=== PATIENT | male | born 1950 | race African-American/Black ===

== ENCOUNTER 2019-03-21 13:39 | Inpatient (IN) | payer MEDICARE, MEDICAID ==
[~2019-03-21] VITALS: Ht 172.7 cm; Wt 64.0 kg
[2019-03-21 13:45] VITALS: BP 78/52
--- NOTE | 2019-03-21 13:45 | NUR ---
ED Nurse Note: pt brought in to ER by ambulance from SNF due to abnormal lab. per EMS Hgb was 6.7 and WBC 23 drawn yesterday. pt aao x1 but awake and follows commnads. bedbound and moving all extremities in bed. calm and cooperative. pt is in gown and on cabbage salter. blood pressure low as documented and ERMD made aware.
[2019-03-21] MEDS ORDERED: SYMLIN600 MCG/1 SUBQ (13:53)
[2019-03-21] MEDS ORDERED: BISACODYL10 M1 RC (13:53)
[2019-03-21] MEDS ORDERED: MELATONIN3 M1 ORAL (13:53)
[2019-03-21] MEDS ORDERED: AMLODIPINE BESY10 MG ORAL (13:53)
[2019-03-21] MEDS ORDERED: MILK OF MA400 MG/51 ORAL (13:53)
[2019-03-21] MEDS ORDERED: OXYCODONE HCL20 M1 ORAL (13:53)
[2019-03-21] MEDS ORDERED: CRANBERRY450 M4 PO (13:53)
[2019-03-21] MEDS ORDERED: FLOMAX0.4 MG ORAL (13:53)
[2019-03-21] MEDS ORDERED: ZOFRAN ODT8 MG ORAL (13:53)
[2019-03-21] MEDS ORDERED: LISINOPRIL20 MG ORAL (13:53)
[2019-03-21] MEDS ORDERED: COLACE100 MG ORAL (13:53)
[2019-03-21] MEDS ORDERED: FAMOTIDINE20 MG ORAL (13:53)
[2019-03-21] MEDS ORDERED: CYCLOBENZAPRINE10 MG ORAL (13:53)
[2019-03-21] MEDS ORDERED: MULTIVITAMINS1 EAC8 ORAL (13:53)
[2019-03-21] MEDS ORDERED: PRO-STAT LIQUID30 ML ORAL (13:53)
[2019-03-21] MEDS ORDERED: Isovue-300 100ml vial INJ PRN (14:00)
--- NOTE | 2019-03-21 14:03 | Emergency Room Report ---
History of Present Illness General Chief Complaint: Abnormal Labs Source: Patient, Medical Record, EMS Present Illness HPI The patient presents with abnormal labs. Currently his white count is elevated and his hemoglobin hematocrit are low. The patient denies any cough or pain at this time. He denies vomiting or diarrhea or dysuria. (However his abdomen is tender which suggest he may not be a good historian.) WBC 12.2, H/H 6.7/24.3. POLST = selective treatment - daughter OKs transfusion. Daughter states had blood in urine on Wednesday. Discharged 4 weeks ago from [facility]. Review of paperwork: Malignant neoplasm cerebellum Dysphagia Cerebral edema Anemia of neoplastic disease DM type 2 Protein calory malnutrition COPD PNA BPH UTI Allergies: Coded Allergies: PENICILLINS (Verified Allergy, Unknown, 03/21/19) Patient History Limited by: medical condition Past Medical History: see triage record, old chart reviewed Social History: Denies: smoking - Former Social History Narrative SNF - selective treatment Reviewed Nursing Documentation: PMH: Agreed; PSxH: Agreed Nursing Documentation-PMH Past Medical History: No History, Except For Hx Hypertension: Yes Hx COPD: Yes Hx Diabetes: Yes Review of Systems All Other Systems: limited Physical Exam Vital Signs Date Time Temp Pulse Resp B/P (MAP) Pulse Ox O2 Delivery O2 Flow Rate FiO2 03/21/19 13:43 98.1 106 18 128/51 (76) 94 Room Air Sp02 EP Interpretation: reviewed, normal General Appearance: no apparent distress, GCS 15, Chronically Ill Head: normocephalic Eyes: bilateral eye normal inspection ENT: moist mucus membranes - Edentulous upper gums Neck: supple, no meningismus Respiratory: chest non-tender, no respiratory distress, decreased breath sounds - Right Cardiovascular #1: tachycardia, edema - Right arm Cardiovascular #2: 2+ radial (R) Gastrointestinal: no rebound, abnormal bowel sounds, guarding, tenderness, scaphoid Rectal: heme positive stool - brown Genitourinary: no CVA tenderness Musculoskeletal: swelling - Right upper arm, other - Atrophy clubbing Neurologic: alert, jointer submarine cable III-XII nml as tested, DTRs symmetric, sensory intact, no Babinski, motor weakness, oriented - X1 Psychiatric: depressed affect, other - Not understanding treatment plan Skin: other - Warm with cornified inflammation of feet Procedures Critical Care Time Critical Care Time Total Critical Care Time: 90 min bedside evaluation and treatment excludes procedures (EKG). Reason for critical care: Sepsis, critical anemia, repeated exams, blood transfusions, discussion with family regarding level of care and blood transfusions Possible complications: hypotension, hypertension, [place], shock, arrhythmias, metabolic acidosis, end organ damage, respiratory failure. Interventions: Determination level of care, Pepcid, blood transfusions, fluid resuscitation, IV antibiotics Course: Patient presented with abnormal labs. Critical anemia uncovered. Blood ordered. Ultrasound excludes DVT right arm. Lack of IV required PICC line placement. Discussion with daughter regarding level of care and blood transfusions. Determination that PICC line and blood transfusions are emergent and patient not understanding treatment plan. Elevated lactic acid and pyuria suggests urinary source of sepsis. Patient receiving blood without difficulty. Discussions of findings with daughter. Consultations: nursing staff, EMS, family, blood bank, admitting physician, radiology Performed by: Dr. Bernardo Tolerated well condition = critical but selective care Medical Decision Making Diagnostic Impression: Primary Impression: Sepsis Qualified Codes: A41.9 - Sepsis, unspecified organism Additional Impressions: Anemia Qualified Codes: D64.9 - Anemia, unspecified Pleural effusion, right GI bleed Qualified Codes: K92.2 - Gastrointestinal hemorrhage, unspecified ER Course Patient presents with elevated white count low hematocrit with abdominal pain. Differential includes sepsis, UTI, diverticulitis, ischemic colitis, GI bleed amongst others. The patient will be evaluated with EKG, chest x-ray CT the abdomen and pelvis and labs. He will receive 30 mill per kilogram bolus and continued hydration. EKG without injury. CXR large R effusion. Leukocytosis. Critical anemia. Delay of re-evaluation as starting PICC line. Sepsis re-evaluation - improved mentation, BP and pulse better. Blood and antibiotics ordered. Going CT. 16:50 Guaiac + brown stools. Pepcid ordered. Stool color suggest lower GI bleed. See CT results. Simpson replaced. Sepsis reevaluation: Good capillary refill, mentation unchanged, transient hypotension improved, antibiotics begun. This is delayed because of the length of time the PICC line required for insertion. Improved. Blood started. Admit tele Dr. Werner. Discussed findings with daughter. She states she was unaware of prior right lung findings. She wants to be kept up-to-date on findings. Records from [facility] were requested after the patient was admitted to the floor. Laboratory Tests Test 03/21/19 13:57 03/21/19 14:30 03/21/19 14:35 03/21/19 16:40 Prothrombin Time 12.5 SEC (9.30-11.50) H Prothrombin Time INR 1.2 (0.9-1.1) H PTT 35 SEC (23-33) H White Blood Count 13.4 K/UL (4.8-10.8) H Red Blood Count 2.63 M/UL (4.70-6.10) L Hemoglobin 6.7 G/DL (14.2-18.0) *L Hematocrit 23.1 % (42.0-52.0) L Mean Corpuscular Volume 88 FL (80-99) Mean Corpuscular Hemoglobin 25.5 PG (27.0-31.0) L Mean Corpuscular Hemoglobin Concent 29.1 G/DL (32.0-36.0) L Red Cell Distribution Width 18.9 % (11.6-14.8) H Platelet Count 519 K/UL (150-450) H Mean Platelet Volume 4.9 FL (6.5-10.1) L Neutrophils (%) (Auto) % (45.0-75.0) Lymphocytes (%) (Auto) % (20.0-45.0) Monocytes (%) (Auto) % (1.0-10.0) Eosinophils (%) (Auto) % (0.0-3.0) Basophils (%) (Auto) % (0.0-2.0) Differential Total Cells Counted 100 Neutrophils % (Manual) 87 % (45-75) H Lymphocytes % (Manual) 5 % (20-45) L Monocytes % (Manual) 6 % (1-10) Eosinophils % (Manual) 0 % (0-3) Basophils % (Manual) 0 % (0-2) Band Neutrophils 2 % (0-8) Platelet Estimate Increased H Platelet Morphology Normal Polychromasia 1+ Hypochromasia 2+ Anisocytosis 2+ Sodium Level 140 MMOL/L (136-145) Potassium Level 4.0 MMOL/L (3.5-5.1) Chloride Level 106 MMOL/L (98-107) Carbon Dioxide Level 26 MMOL/L (21-32) Anion Gap 8 mmol/L (5-15) Blood Urea Nitrogen 13 mg/dL (7-18) Creatinine 0.8 MG/DL (0.55-1.30) Estimate Glomerular Filtration Rate > 60 mL/min (>60) Glucose Level 207 MG/DL (74-106) H Calcium Level 9.1 MG/DL (8.5-10.1) Magnesium Level 2.2 MG/DL (1.8-2.4) Total Bilirubin 0.3 MG/DL (0.2-1.0) Aspartate Amino Transferase (AST) 15 U/L (15-37) Alanine Aminotransferase (ALT) 14 U/L (12-78) Alkaline Phosphatase 80 U/L (46-116) Total Creatine Kinase 14 U/L (26-308) L Troponin I 0.000 ng/mL (0.000-0.056) Pro-B-Type Natriuretic Peptide 248 pg/mL (0-125) H Total Protein 6.1 G/DL (6.4-8.2) L Albumin 1.9 G/DL (3.4-5.0) L Globulin 4.2 g/dL Albumin/Globulin Ratio 0.5 (1.0-2.7) L Lipase 56 U/L (73-393) L Lactic Acid Level 2.50 mmol/L (0.4-2.0) H Urine Color Yellow Urine Appearance Very cloudy Urine pH 8 (4.5-8.0) Urine Specific [place] 1.015 (1.005-1.035) Urine Protein 2+ (NEGATIVE) H Urine Glucose (UA) Negative (NEGATIVE) Urine Ketones Negative (NEGATIVE) Urine Blood 5+ (NEGATIVE) H Urine Nitrite Negative (NEGATIVE) Urine Bilirubin Negative (NEGATIVE) Urine Urobilinogen Normal MG/DL (0.0-1.0) Urine Leukocyte Esterase 3+ (NEGATIVE) H Urine RBC 5-10 /HPF (0 - 0) H Urine WBC 10-15 /HPF (0 - 0) H Urine Squamous Epithelial Cells None /LPF (NONE/OCC) Urine Bacteria Many /HPF (NONE) H Test 03/21/19 18:50 Lactic Acid Level 2.40 mmol/L (0.66-2.22) H EKG Diagnostic Results Rate: normal Rhythm: NSR ST Segments: no acute changes - low voltage Rhythm Strip Diag. Results EP Interpretation: yes Rhythm: NSR, no PVC's, no ectopy Chest X-Ray Diagnostic Results Chest X-Ray Diagnostic Results : Chest X-Ray Ordered: Yes # of Views/Limited/Complete: 1 View Indication: Other EP Interpretation: Yes Interpretation: no pneumothorax, other - Large right pleural effusion cannot exclude infiltrate Impression: Other Electronically Signed by: Electronically signed by Tex Bernardo MD CT/MRI/US Diagnostic Results CT/MRI/US Diagnostic Results #1: Imaging Test Ordered: abd/pelvis Impression pericardial effusion simpson in urethra CT/MRI/US Diagnostic Results #2: Imaging Test Ordered: RUE doppler Impression no clot Last Vital Signs Date Time Temp Pulse Resp B/P (MAP) Pulse Ox O2 Delivery O2 Flow Rate FiO2 03/22/19 00:00 97.7 95 15 104/72 (83) 97 03/21/19 23:26 Room Air Status: improved Disposition: ADMITTED INPATIENT Condition: Serious Tex Bernardo MD Mar 21, 2019 14:03
--- NOTE | 2019-03-21 14:05 | NUR ---
ED Nurse Note: Rt arm edema noted. ERMD made aware.
--- NOTE | 2019-03-21 14:10 | NUR ---
ED Nurse Note: x-ray at bedside.
[2019-03-21 14:31] LABS: INR 1.2 (0.9-1.1)
[2019-03-21 14:46] LABS: HEMATOCRIT 23.1 % (42.0-52.0); MEAN CORPUSCULAR VOLUME 88 FL (80-99); PLATELET COUNT 519 K/UL (150-450); RED BLOOD COUNT 2.63 M/UL (4.70-6.10); RED CELL DISTRIBUTION WIDTH 18.9 % (11.6-14.8); WHITE BLOOD COUNT 13.4 K/UL (4.8-10.8)
[2019-03-21 14:54] LABS: HEMOGLOBIN 6.7 G/DL (14.2-18.0)
[2019-03-21] MEDS ORDERED: Heparin1,000 units/500ml Premix(Conc:2 units/ml) IV ONE (15:00)
[2019-03-21] MEDS ORDERED: Lidocaine 1% Plain 30 ml INJ ONE (15:00)
--- NOTE | 2019-03-21 15:05 | NUR ---
ED Nurse Note: Received consent from patient regarding picc line placement. Per Dr. Bernardo, Patient's daughter, Bruna has given him consent to transfuse blood.
[2019-03-21 15:06] LABS: ANION GAP 8 mmol/L (5-15); BLOOD UREA NITROGEN 13 mg/dL (7-18); CALCIUM 9.1 MG/DL (8.5-10.1); CARBON DIOXIDE 26 MMOL/L (21-32); CHLORIDE 106 MMOL/L (98-107); CREATININE 0.8 MG/DL (0.55-1.30); SODIUM 140 MMOL/L (136-145)
--- NOTE | 2019-03-21 15:10 | NUR ---
ED Nurse Note: US at bedside.
[2019-03-21 15:17] LABS: ALANINE AMINOTRANSFERASE 14 U/L (12-78); ALBUMIN 1.9 G/DL (3.4-5.0); ALBUMIN/GLOBULIN RATIO 0.5 (1.0-2.7); ALKALINE PHOSPHATASE 80 U/L (46-116); ASPARTATE AMINO TRANSFERASE 15 U/L (15-37); BILIRUBIN,TOTAL 0.3 MG/DL (0.2-1.0); CREATINE KINASE 14 U/L (26-308)
--- NOTE | 2019-03-21 15:21 | Diagnostic Imaging Report ---
Indication: Dyspnea Comparison: None A single view chest radiograph was obtained. Findings: There is near complete opacification of the right hemithorax. The left lung is relatively clear. Heart size is difficult to evaluate. Bones are unremarkable. IMPRESSION: Opacified right hemithorax. This may be due to pleural effusion/atelectasis or other possibilities.
[2019-03-21] MEDS ORDERED: Vancomycin 1.5 GM in NS 275 ML IVPB ONE (15:30)
[2019-03-21] MEDS ORDERED: cefTRIAXone 1 GM in NS 55 ML IVPB ONE (15:30)
[2019-03-21 15:45] VITALS: BP 99/58
--- NOTE | 2019-03-21 15:50 | NUR ---
ED Nurse Note: PICC line inserting at bedside.
--- NOTE | 2019-03-21 16:16 | Diagnostic Imaging Report ---
Indication: Right upper extremity pain and swelling. Technique: Duplex Doppler imaging of the veins in the right upper extremity performed. FINDINGS: The jugular and subclavian veins demonstrate normal color flow and waveform signal. No evidence of thrombosis. Continuation to the axillary vein, brachial, cephalic and basilic veins show no evidence of thrombosis with good compressibility, normal color flow and waveform analysis. IMPRESSION: No evidence of thrombosis involving the right upper extremity in question.
--- NOTE | 2019-03-21 16:35 | NUR ---
ED Nurse Note: PICC line insertion done at bedside.
--- NOTE | 2019-03-21 16:47 | NUR ---
ED Nurse Note: pt went down for CT in stable condition. BP was checked prior to departing at 119/79mmHg
--- NOTE | 2019-03-21 16:48 | NUR ---
RADIOLOGY: MIDLINE PLACED
--- NOTE | 2019-03-21 16:50 | NUR ---
ED Nurse Note: Rectal temp 98.7F. reported to ERMD.
--- NOTE | 2019-03-21 17:05 | NUR ---
ED Nurse Note: pt came back from CT in stable condition.
--- NOTE | 2019-03-21 17:10 | NUR ---
ED Nurse Note: Retal exam done by DEBORAH.
[2019-03-21 17:35] LABS: APPEARANCE,URINE VERY CLOUDY; BILIRUBIN, URINE NEGATIVE (NEGATIVE); GLUCOSE, URINE (UA) NEGATIVE (NEGATIVE); KETONES,URINE NEGATIVE (NEGATIVE); LEUKOCYTE ESTERASE ,URINE 3+ (NEGATIVE); NITRITE,URINE NEGATIVE (NEGATIVE); PH,URINE 8 (4.5-8.0); PROTEIN,URINE 2+ (NEGATIVE); UROBILINOGEN,URINE NORMAL MG/DL (0.0-1.0)
[2019-03-21 17:36] LABS: COLOR,URINE YELLOW
[2019-03-21 17:45] VITALS: BP 117/77
--- NOTE | 2019-03-21 18:00 | NUR ---
ED Nurse Note: stayed at bedside for 15 minutes and no reaction noted. vss 97.8F, 87/min, 99/87mmHg.
--- NOTE | 2019-03-21 18:41 | NUR ---
ED Nurse Note: F/C replaced and lactic reflux sent to the lab.
--- NOTE | 2019-03-21 19:05 | NUR ---
HAND-OFF: Report given to MARIO Pavon. blood transfusion on going without adverse reaction.
[2019-03-21 20:00] VITALS: BP 142/71
[2019-03-21] MEDS ORDERED: Dyna-Hex 2% Top Sol 2oz TOPIC SCH (20:00)
--- NOTE | 2019-03-21 20:00 | NUR ---
TRANSFER TO FLOOR: Patient transferred to as ordered, per Dr dickens. Report given to MARIO Hayward. Belongings and medications given to . Family and or S/O informed of transfer.
--- NOTE | 2019-03-21 20:02 | NUR ---
NURSE NOTES: Received report from MYRA Pavon RN. Patient was transferred to Telemetry unit via gurney, draw sheet method, 2 staff member assist without incident. No signs of acute distress noted; denies pain at this time. AOx1; able to make needs known to a limited degree. Checked right upper arm PICC line; patent and flushed. No erythema, bleeding, or infiltration noted. 1st unit of PRBCs completed. Patient appears to have tolerated well. No adverse reaction noted. Belongings list checked; no belongings. Skin assessment performed; skin is intact. No open wounds noted. Barnes catheter draining well to gravity. Bed at lowest position, brakes on, siderails up x3. Call light within reach. Will continue to monitor.
[2019-03-21] MEDS ORDERED: ACETAMINOPHEN325 M1 ORAL (21:10)
[2019-03-21] MEDS ORDERED: POLYETHYLENE GL17 GM ORAL (21:10)
[2019-03-21] MEDS ORDERED: ACETAMINOPHEN500 M5 ORAL (21:10)
[2019-03-21] MEDS ORDERED: XARELTO20 MG ORAL (21:10)
--- NOTE | 2019-03-21 21:14 | NUR ---
NURSE NOTES: Called Dr. Werner regarding admission orders for patient. Awaiting callback.
--- NOTE | 2019-03-21 21:44 | NUR ---
NURSE NOTES: Per Dr. Werner, called Dr. Moran, covering MD for Dr. Werner, for admission orders. Awaiting callback.
--- NOTE | 2019-03-21 21:57 | NUR ---
NURSE NOTES: Patient strongly refusing pier worker at this time and noted to be slapping primary RN's hand away when attempting to reapply monitor leads. Risks and benefits explained; still adamantly refusing.
--- NOTE | 2019-03-21 22:34 | NUR ---
NURSE NOTES: Called Dr. Moran's exchange regarding admission orders. Awaiting callback.
--- NOTE | 2019-03-21 23:58 | NUR ---
NURSE NOTES: Received admission orders from Dr. Werner including continuing 2nd unit of PRBCs. Noted and carried out.
[2019-03-22] VITALS: BP 104/72
--- NOTE | 2019-03-22 00:17 | NUR ---
NURSE NOTES: Per Dr. Werner, no sliding scale for patient since patient is NPO.
--- NOTE | 2019-03-22 01:25 | NUR ---
NURSE NOTES: Received additional orders from Dr. Moran. Noted and carried out.
--- NOTE | 2019-03-22 02:06 | NUR ---
NURSE NOTES: Initiated second unit of PRBCs. Will continue to monitor patient for any adverse reactions.
--- NOTE | 2019-03-22 02:24 | NUR ---
NURSE NOTES: Patient appears to be tolerating blood transfusion well. No adverse reaction noted at this time. Will continue to monitor.
[2019-03-22 04:00] VITALS: BP 115/83
[2019-03-22 06:33] LABS: ANION GAP 9 mmol/L (5-15); BLOOD UREA NITROGEN 10 mg/dL (7-18); CALCIUM 8.9 MG/DL (8.5-10.1); CARBON DIOXIDE 27 MMOL/L (21-32); CHLORIDE 107 MMOL/L (98-107); CREATININE 0.7 MG/DL (0.55-1.30); POTASSIUM 3.6 MMOL/L (3.5-5.1); SODIUM 143 MMOL/L (136-145)
[2019-03-22 06:46] LABS: HEMATOCRIT 28.9 % (42.0-52.0); MEAN CORPUSCULAR VOLUME 89 FL (80-99); PLATELET COUNT 580 K/UL (150-450); RED BLOOD COUNT 3.26 M/UL (4.70-6.10); RED CELL DISTRIBUTION WIDTH 17.6 % (11.6-14.8); WHITE BLOOD COUNT 13.1 K/UL (4.8-10.8)
[2019-03-22 06:56] LABS: HEMOGLOBIN 8.8 G/DL (14.2-18.0)
--- NOTE | 2019-03-22 07:20 | NUR ---
NURSE NOTES: Report received from MARIO Cherry. Patient asleep, easily awakened by voice. AOx1. In RA. Denies any pain or SOB. Refused VS at this time. Barnes patent. Bed on lowest position, side rails upx2, brakes engaged. Call light within easy reach.
--- NOTE | 2019-03-22 07:44 | NUR ---
HAND-OFF: Report given to MARIO Rae. Patient is asleep lying semi-novoa's; resting comfortably. In stable condition.
[2019-03-22] MEDS ORDERED: Cefepime HCl 1 GM in D5W 55 ML IVPB SCH (09:00)
--- NOTE | 2019-03-22 10:11 | NUR ---
SWALLOW/SPEECH THERAPY NOTE: REFERRED BY DR HARTMANN FOR A SWALLOW EVALUATION, SEE FULL REPORT IN [facility]ARE ACTIVITY SECTION. 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 SWALLOW EVAL AND VIDEOSWALLOW STUDY 01/2019 ADMIT BUT AT SNF SEEING ST FOR SWALLOW TX. RELEVANT MEDS: PPI SEEING GI [facility] FOR POSS GIB ALERT BUT REFUSING PO INITIALLY AND DOESN'T WANT TO FOLLOW SOME COMMANDS (LIKE ORAL COMMANDS) OR GETS AGITATED WITH STAFF AT TIMES. EXPRESSES NEEDS IN HOARSE VOICE. NEEDS ENT REFERRAL HAS SMOKING HX. INITIAL IMPRESSIONS: S/S OF MILD TO MOD ORAL AND OROPHARYNEGAL DYSPHAGIA WITH INCREASED TRANSIT TIMES OVERALL. THIN LIQUIDS - 3 OZ WATER PRITESH SWALLOW TEST, ABLE TO DRINK SEQUENTIALLY SELF-FEEDING BUT NEEDED TO STOP 2 TIMES INITIALLY BUT NO OVERT ASPIRATION. 1-2 EXTRA SWALLOWS SPONTANEOUSLY NOTED. NECTAR THICK LIQUIDS GROSSLY FUNCTIONAL WITH FAIR HYOLARYNGEAL EXCURSION WITH SIP VIA CUP SEQUENTIAL SIPS SELF-FEEDING. DID HAVE 1-2 EXTRA SWALLOWS SPONTANEOUSLY PUREED TSP 5-7 SECONDS ORAL PREP PHASE TENDS TO MAKE CHEWING MOVEMENTS, NOR ORAL RESIDUE, GOOD HYOLARYNGEAL EXCURSION, 2 EXTRA SWALLOWS, NO OVERT ASPIRATION. HAS SILENT ASPIRATION RISK DUE TO NEURO DX RECOMMENDATIONS: COMPLETE MOD BARIUM SWALLOW STUDY TO FURTHER ASSESS SWALLOW, DETERMINE SILENT ASPIRATION RISK/ETIOLOGY, AND ATTEMPT TRIAL TX IF PO GIVEN FOR QUALITY OF LIFE, CONSIDER CCHO-MED PUREED AND NECTAR THICK LIQUIDS WITH ASSIST WITH MEALS AND POSTED ASPIRATION AND REFLUX PRECAUTIONS (HAS GERD). RD REGARDING DIET TYPE NO REPORT NOW BUT WAS ON CCHO-MED AT SNF SKILLED DYSPHAGIA MANAGEMENT AND TX AND COG-COM EVAL/TX EDUCATED/TRAINED MARIO SHARMA IN POSTED ASPIRATION PRECAUTIONS D/W RNZACHARY, LEFT MESSAGE WITH MD HARTMANN, AND DONNELL SAUNDERS (BLUEPRINT TRACER NOT AVAILABLE RN TO TELL)
--- NOTE | 2019-03-22 10:24 | NUR ---
NURSE NOTES: Dr. Beaulieu checked Pt's R upper arm, confirmed swelling.
--- NOTE | 2019-03-22 10:40 | GI Initial Consult Note ---
History of Present Illness General Date patient seen: Mar 22, 2019 Time patient seen: 10:34 Reason for Hospitalization: Abnormal Labs Referring physician: MADELIN HARTMANN Reason for Consultation: ANEMIA Present Illness HPI The patient presents with abnormal labs. Currently his white count is elevated and his hemoglobin hematocrit are low. The patient denies any cough or pain at this time. He denies vomiting or diarrhea or dysuria. (However his abdomen is tender which suggest he may not be a good historian.) WBC 12.2, H/H 6.7/24.3. POLST = selective treatment - daughter OKs transfusion. Daughter states had blood in urine on Wednesday. [facility] GI consulted for anemia. ROS limited, patient unable to provide any history. Patient seen, no apparent distress with no active signs or symptoms of nausea or vomiting. Noted that the POLST agreed for trial of artificial feeding if necessary. Patient has been seen by speech therapy, advance to a pured diet. Labs reviewed; WBC 13, hemoglobin 6.7, INR 1.2, no transaminitis. Unknown history of endoscopic colonoscopy. Home Meds Reported Medications Acetaminophen* (ACETAMINOPHEN 325MG TABLET*) 325 Mg Tablet, 650 MG ORAL Q4H PRN for Mild Pain/Temp > 100.5, TAB 03/21/19 Acetaminophen (Acetaminophen) 500 Mg Tablet, 1000 MG ORAL Q4H PRN for Moderate Pain (Pain Scale 4-6), TAB 03/21/19 Rivaroxaban (XARELTO) 20 Mg Tablet, 20 MG ORAL DAILY for 30 Days, MG 0 Refills 03/21/19 Polyethylene Glycol 3350* (POLYETHYLENE GLYCOL 3350*) 17 Gm Powd.pack, 17 GM ORAL DAILY, PACKET 03/21/19 Amino Acids/Protein Hydrolys (PRO-STAT LIQUID) 30 Ml Liquid.pkt, 30 ML ORAL TWICE A DAY, ML 03/21/19 Oxycodone Hcl (OXYCODONE HCL) 20 Mg Tablet, 5 MG ORAL Q4HR PRN for Moderate Pain (Pain Scale 4-6), #10 TAB 0 Refills 03/21/19 Oxycodone Hcl (OXYCODONE HCL) 20 Mg Tablet, 10 MG ORAL Q4HR PRN for Severe Pain (Pain Scale 7-10), #10 TAB 0 Refills 03/21/19 Ondansetron Odt* (ZOFRAN ODT*) 8 Mg Tab.rapdis, 4 MG ORAL Q4HR PRN for Nausea & Vomiting, #30 TAB 03/21/19 Multivitamin With Minerals (MULTIVITAMINS WITH MINERALS*) 1 Each Tablet, 1 TAB ORAL DAILY, TAB 03/21/19 Magnesium Hydroxide* (MILK OF MAGNESIA*) 400 Mg/5 Ml Oral.susp, 30 ML ORAL QHS PRN for Constipation, ML 03/21/19 Melatonin (MELATONIN) 3 Mg Tablet.er, 3 MG ORAL BEDTIME PRN for Insomnia, TAB 03/21/19 Lisinopril (LISINOPRIL*) 20 Mg Tablet, 30 MG ORAL DAILY, TAB 03/21/19 Insulin Regular, Human (Humulin R) 100 Unit/1 Ml Vial, 600 MCG SUBQ, VIAL 03/21/19 Tamsulosin HCl (Flomax) 0.4 Mg Cap.er.24h, 0.4 MG ORAL DAILY, CAP 03/21/19 Famotidine (FAMOTIDINE) 20 Mg Tablet, 20 MG ORAL DAILY, #30 TAB 0 Refills 03/21/19 Cyclobenzaprine Hcl* (FLEXERIL*) 10 Mg Tablet, 5 MG ORAL THREE TIMES A DAY PRN for Muscle Spasm, TAB 03/21/19 Cranberry Fruit Concentrate (CRANBERRY) 450 Mg Capsule, 450 MG PO DAILY, CAP 03/21/19 Docusate Sodium* (COLACE*) 100 Mg Capsule, 100 MG ORAL TWICE A DAY, CAP 03/21/19 Bisacodyl (BISACODYL) 10 Mg Supp.rect, 10 MG RC DAILY PRN for Constipation, SUPP 03/21/19 Amlodipine Besylate* (AMLODIPINE BESYLATE*) 10 Mg Tablet, 10 MG ORAL DAILY, TAB 03/21/19 Med list reviewed/reconciled: Yes Allergies: Coded Allergies: PENICILLINS (Verified Allergy, Unknown, 03/21/19) Patient History Limited by: medical condition History Provided By: Medical Record PMH Narrative Review of paperwork: Malignant neoplasm cerebellum Dysphagia Cerebral edema Anemia of neoplastic disease DM type 2 Protein calory malnutrition COPD PNA BPH UTI Limited by: medical condition Past Medical History: see triage record, old chart reviewed Social History: Denies: smoking - Former Social History Narrative SNF - selective treatment Reviewed Nursing Documentation: PMH: Agreed; PSxH: Agreed Nursing Documentation-PMH Past Medical History: No History, Except For Hx Hypertension: Yes Hx COPD: Yes Hx Diabetes: Yes Social History: Denies: smoking, alcohol use, drug use, other Review of Systems All Other Systems: limited Physical Exam Vital Signs Date Time Temp Pulse Resp B/P (MAP) Pulse Ox O2 Delivery O2 Flow Rate FiO2 03/21/19 13:43 98.1 106 18 128/51 (76) 94 Room Air Sp02 EP Interpretation: reviewed, normal Labs Laboratory Tests Test 03/21/19 13:57 03/21/19 14:30 03/21/19 14:35 03/21/19 16:40 Prothrombin Time 12.5 SEC (9.30-11.50) H Prothromb Time International Ratio 1.2 (0.9-1.1) H Activated Partial Thromboplast Time 35 SEC (23-33) H White Blood Count 13.4 K/UL (4.8-10.8) H Red Blood Count 2.63 M/UL (4.70-6.10) L Hemoglobin 6.7 G/DL (14.2-18.0) *L Hematocrit 23.1 % (42.0-52.0) L Mean Corpuscular Volume 88 FL (80-99) Mean Corpuscular Hemoglobin 25.5 PG (27.0-31.0) L Mean Corpuscular Hemoglobin Concent 29.1 G/DL (32.0-36.0) L Red Cell Distribution Width 18.9 % (11.6-14.8) H Platelet Count 519 K/UL (150-450) H Mean Platelet Volume 4.9 FL (6.5-10.1) L Neutrophils (%) (Auto) % (45.0-75.0) Lymphocytes (%) (Auto) % (20.0-45.0) Monocytes (%) (Auto) % (1.0-10.0) Eosinophils (%) (Auto) % (0.0-3.0) Basophils (%) (Auto) % (0.0-2.0) Differential Total Cells Counted 100 Neutrophils % (Manual) 87 % (45-75) H Lymphocytes % (Manual) 5 % (20-45) L Monocytes % (Manual) 6 % (1-10) Eosinophils % (Manual) 0 % (0-3) Basophils % (Manual) 0 % (0-2) Band Neutrophils 2 % (0-8) Platelet Estimate Increased H Platelet Morphology Normal Polychromasia 1+ Hypochromasia 2+ Anisocytosis 2+ Sodium Level 140 MMOL/L (136-145) Potassium Level 4.0 MMOL/L (3.5-5.1) Chloride Level 106 MMOL/L (98-107) Carbon Dioxide Level 26 MMOL/L (21-32) Anion Gap 8 mmol/L (5-15) Blood Urea Nitrogen 13 mg/dL (7-18) Creatinine 0.8 MG/DL (0.55-1.30) Estimat Glomerular Filtration Rate > 60 mL/min (>60) Glucose Level 207 MG/DL (74-106) H Calcium Level 9.1 MG/DL (8.5-10.1) Magnesium Level 2.2 MG/DL (1.8-2.4) Total Bilirubin 0.3 MG/DL (0.2-1.0) Aspartate Amino Transf (AST/SGOT) 15 U/L (15-37) Alanine Aminotransferase (ALT/SGPT) 14 U/L (12-78) Alkaline Phosphatase 80 U/L (46-116) Total Creatine Kinase 14 U/L (26-308) L Troponin I 0.000 ng/mL (0.000-0.056) Pro-B-Type Natriuretic Peptide 248 pg/mL (0-125) H Total Protein 6.1 G/DL (6.4-8.2) L Albumin 1.9 G/DL (3.4-5.0) L Globulin 4.2 g/dL Albumin/Globulin Ratio 0.5 (1.0-2.7) L Lipase 56 U/L (73-393) L Lactic Acid Level 2.50 mmol/L (0.4-2.0) H Urine Color Yellow Urine Appearance Very cloudy Urine pH 8 (4.5-8.0) Urine Specific [place] 1.015 (1.005-1.035) Urine Protein 2+ (NEGATIVE) H Urine Glucose (UA) Negative (NEGATIVE) Urine Ketones Negative (NEGATIVE) Urine Blood 5+ (NEGATIVE) H Urine Nitrite Negative (NEGATIVE) Urine Bilirubin Negative (NEGATIVE) Urine Urobilinogen Normal MG/DL (0.0-1.0) Urine Leukocyte Esterase 3+ (NEGATIVE) H Urine RBC 5-10 /HPF (0 - 0) H Urine WBC 10-15 /HPF (0 - 0) H Urine Squamous Epithelial Cells None /LPF (NONE/OCC) Urine Bacteria Many /HPF (NONE) H Test 03/21/19 18:50 03/22/19 05:50 Lactic Acid Level 2.40 mmol/L (0.66-2.22) H White Blood Count 13.1 K/UL (4.8-10.8) H Red Blood Count 3.26 M/UL (4.70-6.10) L Hemoglobin 8.8 G/DL (14.2-18.0) #L Hematocrit 28.9 % (42.0-52.0) L Mean Corpuscular Volume 89 FL (80-99) Mean Corpuscular Hemoglobin 27.0 PG (27.0-31.0) Mean Corpuscular Hemoglobin Concent 30.4 G/DL (32.0-36.0) L Red Cell Distribution Width 17.6 % (11.6-14.8) H Platelet Count 580 K/UL (150-450) H Mean Platelet Volume 4.8 FL (6.5-10.1) L Neutrophils (%) (Auto) % (45.0-75.0) Lymphocytes (%) (Auto) % (20.0-45.0) Monocytes (%) (Auto) % (1.0-10.0) Eosinophils (%) (Auto) % (0.0-3.0) Basophils (%) (Auto) % (0.0-2.0) Neutrophils % (Manual) Pending Lymphocytes % (Manual) Pending Platelet Estimate Pending Platelet Morphology Pending Sodium Level 143 MMOL/L (136-145) Potassium Level 3.6 MMOL/L (3.5-5.1) Chloride Level 107 MMOL/L (98-107) Carbon Dioxide Level 27 MMOL/L (21-32) Anion Gap 9 mmol/L (5-15) Blood Urea Nitrogen 10 mg/dL (7-18) Creatinine 0.7 MG/DL (0.55-1.30) Estimat Glomerular Filtration Rate > 60 mL/min (>60) Glucose Level 87 MG/DL (74-106) # Calcium Level 8.9 MG/DL (8.5-10.1) General Appearance: well appearing, no apparent distress, alert Head: normocephalic EENT: PERRL/EOMI, normal ENT inspection Neck: supple Respiratory: normal breath sounds, no respiratory distress Cardiovascular: normal rate Gastrointestinal: normal inspection, non tender, soft, normal bowel sounds, non -distended Rectal: deferred Genitourinary: deferred Musculoskeletal: normal inspection, back normal Neurologic: alert, responsive Skin: normal inspection, normal color, no rash, warm/dry, palpation normal, well hydrated Lymphatic: normal inspection, no adenopathy Current Medications Current Medications Medications (Trade) Dose Ordered Sig/Stephani Route PRN Reason Start Time Stop Time Status Last Admin Dose Admin Acetaminophen (Tylenol) 500 mg Q4H PRN ORAL Mild Pain/Temp > 100.5 03/22/19 00:00 04/21/19 00:00 Cefepime HCl 1 gm/ Dextrose 55 ml @ 110 mls/hr EVERY 12 HOURS IVPB 03/22/19 09:00 03/29/19 08:59 03/22/19 09:14 Chlorhexidine Gluconate (Yesi-Hex 2%) 1 applic DAILY@2000 TOPIC 03/21/19 20:00 04/20/19 19:59 Iopamidol (Isovue-300 100ml) 100 ml NOW PRN INJ Radiology Procedure 03/21/19 14:00 Sodium Chloride 1,000 ml @ 75 mls/hr [id number] IV 03/22/19 06:00 04/21/19 05:59 03/22/19 06:23 GI: Plan Problems: (1) Hematuria (2) Anemia (3) GI bleed (4) Sepsis Plan Speech therapy evaluation noted, patient placed on pure and nectar thick diet POLST reviewed Possible anemia secondary to hematuria Conservative management anemia work up OB stool to rule out GI bleed, will consider endoscopy if positive monitor H&H, prn transfusions bowel regimen ppi fu labs Discussed with Dr. Baron. Thank you for this patient referral, we will follow. The patient was seen and examined at bedside and all new and available data was reviewed in the patients chart. I agree with the above findings, impression and plan. (Patient seen earlier today. Signature stamp does not reflect patient encounter time.). - MD Deidre Alvarenga,[facility] ON SITE COORDINATOR Mar 22, 2019 10:40
--- NOTE | 2019-03-22 11:13 | Diagnostic Imaging Report ---
Indication: Abdominal pain Technique: Continuous helical transaxial imaging of the abdomen and pelvis was obtained from the lung bases to the pubic symphysis during intravenous contrast administration. Coronal 2-D reformats were also obtained. Study obtained in a Siemens sensation [address] Automatic Exposure Control was utilized. Total Dose length Product (DLP): [address] Dose Index Volume (CTDIvol): 15.03 mGy Comparison: None Findings: The urinary bladder is distended and there is some air in the bladder lumen. Correlate for recent Barnes placement or other iatrogenic cause of this. In the absence of such history one would assume infection. There is a small right inguinal hernia containing fat. Bowel gas pattern appears nonobstructive. Minimal calcification of aorta demonstrated. The kidneys show multiple cysts bilaterally. There is artifact limiting evaluation of the upper abdomen. The gallbladder is grossly unremarkable in appearance. There is a pericardial effusion. There is periportal edema. There is a moderate right pleural effusion and right posterior basal atelectasis. Spleen is normal size. The liver is unremarkable. Pancreas is grossly unremarkable. Diffuse subcutaneous edema noted. IMPRESSION: Distended urinary bladder. Intraluminal air noted. This may be due to recent Barnes placement. Correlate clinically. Pericardial effusion Moderate right pleural effusion and posterior basal atelectasis. Subcutaneous edema/anasarca. Other incidental findings as above [facility] has communicated the preliminary results to the Emergency Department. Their findings are largely concordant with this report. The CT scanner at [facility] is accredited by the [employer] and the scans are performed using dose optimization techniques as appropriate to a performed exam including Automatic Exposure control.
--- NOTE | 2019-03-22 11:24 | Diagnostic Imaging Report ---
APPROVED REPORT CPT Code: 13365 Present Symptoms Comments: Pain BILATERAL: Imaging reveals a patent deep venous system bilaterally. There is no evidence of thrombus within the common femoral, superficial femoral, popliteal or tibial segments. The greater saphenous veins are within normal limits. Doppler indicates normal spontaneous flow within these segments.
[2019-03-22 12:00] VITALS: BP 122/84
--- NOTE | 2019-03-22 12:54 | Diagnostic Imaging Report ---
Indication: event staff venous access Findings: After the indications, procedure, risks, complications, and alternatives of the procedure were explained, written informed consent was obtained. The right upper extremity was prepped with alcohol. All elements of maximal sterile barrier technique were followed including usage of a cap, mask, sterile gown, sterile gloves, hand hygiene and a large sterile sheet. Sonographic evaluation of the upper extremity was performed demonstrating a patent and compressible basilic vein. Access was obtained under real-time ultrasound guidance (with utilization of sterile gel and sterile probe cover) and digital image was saved and archived. An .018 wire was introduced. Needle exchanged for a 5 [place] peel-away sheath. Measurements were obtained. A 5 [place] dual-lumen Power PICC line catheter was cut to 20 cm and introduced over the wire. Peel-away sheath and wire were removed.Catheter was secured to the skin using 2-0 Prolene suture. Both ports aspirate and flush easily. Post procedure chest x-ray demonstrates good position of the PICC line catheter within the right axillary vein. Attempts at passing the catheter further centrally were unsuccessful. Impression: Successful placement of an upper extremity catheter. The tip is in peripheral right axillary vein.
--- NOTE | 2019-03-22 15:07 | NUR ---
NURSE NOTES: Attempt made to change Pt's central line dressing. Patient refused.
--- NOTE | 2019-03-22 15:39 | Cardiology Report ---
APPROVED REPORT EKG Measurement Heart [id number] Normal sinus rhythm Low voltage QRS Septal infarct, age undetermined Abnormal ECG
--- NOTE | 2019-03-22 15:47 | Consultation ---
History of Present Illness General Chief Complaint: Abnormal Labs Referring physician: MADELIN HARTMANN Reason for Consultation: ANEMIA Present Illness Allergies: Coded Allergies: PENICILLINS (Verified Allergy, Unknown, 03/21/19) Medication History Scheduled Amino Acids/Protein Hydrolys (Pro-Stat Liquid), 30 ML ORAL TWICE A DAY, ( Reported) Amlodipine Besylate* (Amlodipine Besylate*), 10 MG ORAL DAILY, (Reported) Cranberry Fruit Concentrate (Cranberry), 450 MG PO DAILY, (Reported) Docusate Sodium* (Colace*), 100 MG ORAL TWICE A DAY, (Reported) Famotidine (Famotidine), 20 MG ORAL DAILY, (Reported) Lisinopril (Lisinopril*), 30 MG ORAL DAILY, (Reported) Multivitamin With Minerals (Multivitamins With Minerals*), 1 TAB ORAL DAILY, ( Reported) Polyethylene Glycol 3350* (Polyethylene Glycol 3350*), 17 GM ORAL DAILY, ( Reported) Rivaroxaban (Xarelto), 20 MG ORAL DAILY, (Reported) Tamsulosin HCl (Flomax), 0.4 MG ORAL DAILY, (Reported) Scheduled PRN Acetaminophen (Acetaminophen), 1,000 MG ORAL Q4H PRN for Moderate Pain (Pain Scale 4-6), (Reported) Acetaminophen* (Acetaminophen 325MG Tablet*), 650 MG ORAL Q4H PRN for Mild Pain/ Temp > 100.5, (Reported) Bisacodyl (Bisacodyl), 10 MG RC DAILY PRN for Constipation, (Reported) Cyclobenzaprine Hcl* (Flexeril*), 5 MG ORAL THREE TIMES A DAY PRN for Muscle Spasm, (Reported) Magnesium Hydroxide* (Milk Of Magnesia*), 30 ML ORAL QHS PRN for Constipation, ( Reported) Melatonin (Melatonin), 3 MG ORAL BEDTIME PRN for Insomnia, (Reported) Ondansetron Odt* (Zofran Odt*), 4 MG ORAL Q4HR PRN for Nausea & Vomiting, ( Reported) Oxycodone Hcl (Oxycodone Hcl), 10 MG ORAL Q4HR PRN for Severe Pain (Pain Scale 7 -10), (Reported) Oxycodone Hcl (Oxycodone Hcl), 5 MG ORAL Q4HR PRN for Moderate Pain (Pain Scale 4-6), (Reported) Miscellaneous Medications Insulin Regular, Human (Humulin R), 600 MCG SUBQ, (Reported) Patient History Healthcare decision maker Resuscitation status Do Not Resuscitate Advanced Directive on File Yes Physical Exam Last 24 Hour Vital Signs Date Time Temp Pulse Resp B/P (MAP) Pulse Ox O2 Delivery O2 Flow Rate FiO2 03/22/19 12:00 97.2 97 18 122/84 (97) 95 03/22/19 09:00 Room Air 03/22/19 04:00 98.4 110 20 115/83 (94) 95 03/22/19 00:00 97.7 95 15 104/72 (83) 97 03/21/19 23:26 Room Air 03/21/19 20:00 97.9 96 16 117/77 94 Room Air 03/21/19 20:00 98.8 103 20 142/71 (94) 95 03/21/19 20:00 110 03/21/19 17:45 97.9 96 16 117/77 94 Room Air 03/21/19 17:45 97.9 96 16 03/21/19 15:45 97.9 88 18 99/58 94 Room Air Intake and Output 03/21/19 03/22/19 19:00 07:00 Intake Total 3730 ml 46 ml Output Total 360 ml 500 ml Balance 3370 ml -454 ml Intake Oral 0 ml IV Total 3730 ml 46 ml Output Urine Total 360 ml 500 ml Laboratory Tests Test 03/21/19 16:40 03/21/19 18:50 03/22/19 05:50 Urine Color Yellow Urine Appearance Very cloudy Urine pH 8 (4.5-8.0) Urine Specific [place] 1.015 (1.005-1.035) Urine Protein 2+ (NEGATIVE) H Urine Glucose (UA) Negative (NEGATIVE) Urine Ketones Negative (NEGATIVE) Urine Blood 5+ (NEGATIVE) H Urine Nitrite Negative (NEGATIVE) Urine Bilirubin Negative (NEGATIVE) Urine Urobilinogen Normal MG/DL (0.0-1.0) Urine Leukocyte Esterase 3+ (NEGATIVE) H Urine RBC 5-10 /HPF (0 - 0) H Urine WBC 10-15 /HPF (0 - 0) H Urine Squamous Epithelial Cells None /LPF (NONE/OCC) Urine Bacteria Many /HPF (NONE) H Lactic Acid Level 2.40 mmol/L (0.66-2.22) H White Blood Count 13.1 K/UL (4.8-10.8) H Red Blood Count 3.26 M/UL (4.70-6.10) L Hemoglobin 8.8 G/DL (14.2-18.0) #L Hematocrit 28.9 % (42.0-52.0) L Mean Corpuscular Volume 89 FL (80-99) Mean Corpuscular Hemoglobin 27.0 PG (27.0-31.0) Mean Corpuscular Hemoglobin Concent 30.4 G/DL (32.0-36.0) L Red Cell Distribution Width 17.6 % (11.6-14.8) H Platelet Count 580 K/UL (150-450) H Mean Platelet Volume 4.8 FL (6.5-10.1) L Neutrophils (%) (Auto) % (45.0-75.0) Lymphocytes (%) (Auto) % (20.0-45.0) Monocytes (%) (Auto) % (1.0-10.0) Eosinophils (%) (Auto) % (0.0-3.0) Basophils (%) (Auto) % (0.0-2.0) Differential Total Cells Counted 100 Neutrophils % (Manual) 91 % (45-75) H Lymphocytes % (Manual) 3 % (20-45) L Monocytes % (Manual) 4 % (1-10) Eosinophils % (Manual) 0 % (0-3) Basophils % (Manual) 0 % (0-2) Band Neutrophils 2 % (0-8) Platelet Estimate Increased H Platelet Morphology Normal Hypochromasia 1+ Anisocytosis 1+ Sodium Level 143 MMOL/L (136-145) Potassium Level 3.6 MMOL/L (3.5-5.1) Chloride Level 107 MMOL/L (98-107) Carbon Dioxide Level 27 MMOL/L (21-32) Anion Gap 9 mmol/L (5-15) Blood Urea Nitrogen 10 mg/dL (7-18) Creatinine 0.7 MG/DL (0.55-1.30) Estimat Glomerular Filtration Rate > 60 mL/min (>60) Glucose Level 87 MG/DL (74-106) # Calcium Level 8.9 MG/DL (8.5-10.1) Microbiology Date/Time Source Procedure Growth Status 03/21/19 16:40 Urine,Clean Catch Urine Culture - Preliminary Gram Negative Bacillus 1 Resulted Height (Feet): 5 Height (Inches): 8.00 Weight (Pounds): 180 Medications Current Medications Medications (Trade) Dose Ordered Sig/Stephani Route PRN Reason Start Time Stop Time Status Last Admin Dose Admin Acetaminophen (Tylenol) 500 mg Q4H PRN ORAL Mild Pain/Temp > 100.5 03/22/19 00:00 04/21/19 00:00 Cefepime HCl 1 gm/ Dextrose 55 ml @ 110 mls/hr EVERY 12 HOURS IVPB 03/22/19 09:00 03/29/19 08:59 03/22/19 09:14 Chlorhexidine Gluconate (Yesi-Hex 2%) 1 applic DAILY@2000 TOPIC 03/21/19 20:00 04/20/19 19:59 Iopamidol (Isovue-300 100ml) 100 ml NOW PRN INJ Radiology Procedure 03/21/19 14:00 03/23/19 13:59 Sodium Chloride 1,000 ml @ 75 mls/hr [id number] IV 03/22/19 06:00 04/21/19 05:59 03/22/19 06:23 Assessment/Plan Assessment/Plan: Hematology Consult DOS: 03/22/19 Referring physician: MADELIN HARTMANN Reason for Consultation: ANEMIA, LEUKOCYTOSIS HPI The patient presents with abnormal labs. Currently his white count is elevated and his hemoglobin hematocrit are low. The patient denies any cough or pain at this time. He denies vomiting or diarrhea or dysuria. (However his abdomen is tender which suggest he may not be a good historian.) WBC 12.2, H/H 6.7/24.3. POLST = selective treatment - daughter OKs transfusion. Daughter states had blood in urine on Wednesday. Discharged 4 weeks ago from [facility]. GI consulted for anemia. ROS limited, patient unable to provide any history. Patient seen, no apparent distress with no active signs or symptoms of nausea or vomiting. Noted that the POLST agreed for trial of artificial feeding if necessary. Patient has been seen by speech therapy, advance to a pured diet. Labs reviewed; WBC 13, hemoglobin 6.7, INR 1.2, no transaminitis. Unknown history of endoscopic colonoscopy. Home Meds Reported Medications Acetaminophen* (ACETAMINOPHEN 325MG TABLET*) 325 Mg Tablet, 650 MG ORAL Q4H PRN for Mild Pain/Temp > 100.5, TAB 03/21/19 Acetaminophen (Acetaminophen) 500 Mg Tablet, 1000 MG ORAL Q4H PRN for Moderate Pain (Pain Scale 4-6), TAB 03/21/19 Rivaroxaban (XARELTO) 20 Mg Tablet, 20 MG ORAL DAILY for 30 Days, MG 0 Refills 03/21/19 Polyethylene Glycol 3350* (POLYETHYLENE GLYCOL 3350*) 17 Gm Powd.pack, 17 GM ORAL DAILY, PACKET 03/21/19 Amino Acids/Protein Hydrolys (PRO-STAT LIQUID) 30 Ml Liquid.pkt, 30 ML ORAL TWICE A DAY, ML 03/21/19 Oxycodone Hcl (OXYCODONE HCL) 20 Mg Tablet, 5 MG ORAL Q4HR PRN for Moderate Pain (Pain Scale 4-6), #10 TAB 0 Refills 03/21/19 Oxycodone Hcl (OXYCODONE HCL) 20 Mg Tablet, 10 MG ORAL Q4HR PRN for Severe Pain (Pain Scale 7-10), #10 TAB 0 Refills 03/21/19 Ondansetron Odt* (ZOFRAN ODT*) 8 Mg Tab.rapdis, 4 MG ORAL Q4HR PRN for Nausea & Vomiting, #30 TAB 03/21/19 Multivitamin With Minerals (MULTIVITAMINS WITH MINERALS*) 1 Each Tablet, 1 TAB ORAL DAILY, TAB 03/21/19 Magnesium Hydroxide* (MILK OF MAGNESIA*) 400 Mg/5 Ml Oral.susp, 30 ML ORAL QHS PRN for Constipation, ML 03/21/19 Melatonin (MELATONIN) 3 Mg Tablet.er, 3 MG ORAL BEDTIME PRN for Insomnia, TAB 03/21/19 Lisinopril (LISINOPRIL*) 20 Mg Tablet, 30 MG ORAL DAILY, TAB 03/21/19 Insulin Regular, Human (Humulin R) 100 Unit/1 Ml Vial, 600 MCG SUBQ, VIAL 03/21/19 Tamsulosin HCl (Flomax) 0.4 Mg Cap.er.24h, 0.4 MG ORAL DAILY, CAP 03/21/19 Famotidine (FAMOTIDINE) 20 Mg Tablet, 20 MG ORAL DAILY, #30 TAB 0 Refills 03/21/19 Cyclobenzaprine Hcl* (FLEXERIL*) 10 Mg Tablet, 5 MG ORAL THREE TIMES A DAY PRN for Muscle Spasm, TAB 03/21/19 Cranberry Fruit Concentrate (CRANBERRY) 450 Mg Capsule, 450 MG PO DAILY, CAP 03/21/19 Docusate Sodium* (COLACE*) 100 Mg Capsule, 100 MG ORAL TWICE A DAY, CAP 03/21/19 Bisacodyl (BISACODYL) 10 Mg Supp.rect, 10 MG RC DAILY PRN for Constipation, SUPP 03/21/19 Amlodipine Besylate* (AMLODIPINE BESYLATE*) 10 Mg Tablet, 10 MG ORAL DAILY, TAB 03/21/19 Med list reviewed/reconciled: Yes Allergies: Coded Allergies: PENICILLINS (Verified Allergy, Unknown, 03/21/19) Patient History Limited by: medical condition History Provided By: Medical Record PMH Narrative Review of paperwork: Malignant neoplasm cerebellum Dysphagia Cerebral edema Anemia of neoplastic disease DM type 2 Protein calory malnutrition COPD PNA BPH UTI Limited by: medical condition Past Medical History: see triage record, old chart reviewed Social History: Denies: smoking - Former Social History Narrative SNF - selective treatment Reviewed Nursing Documentation: PMH: Agreed; PSxH: Agreed Past Medical History: No History, Except For Hx Hypertension: Yes Hx COPD: Yes Hx Diabetes: Yes Social History: Denies: smoking, alcohol use, drug use, other Review Systems: limited PE Vital Signs Date Time Temp Pulse Resp B/P (MAP) Pulse Ox O2 Delivery O2 Flow Rate FiO2 03/21/19 13:43 98.1 106 18 128/51 (76) 94 Room Air Sp02 EP Interpretation: reviewed, normal Labs Laboratory Tests Test 03/21/19 13:57 03/21/19 14:30 03/21/19 14:35 03/21/19 16:40 Prothrombin Time 12.5 SEC (9.30-11.50) H Prothromb Time International Ratio 1.2 (0.9-1.1) H Activated Partial Thromboplast Time 35 SEC (23-33) H White Blood Count 13.4 K/UL (4.8-10.8) H Red Blood Count 2.63 M/UL (4.70-6.10) L Hemoglobin 6.7 G/DL (14.2-18.0) *L Hematocrit 23.1 % (42.0-52.0) L Mean Corpuscular Volume 88 FL (80-99) Mean Corpuscular Hemoglobin 25.5 PG (27.0-31.0) L Mean Corpuscular Hemoglobin Concent 29.1 G/DL (32.0-36.0) L Red Cell Distribution Width 18.9 % (11.6-14.8) H Platelet Count 519 K/UL (150-450) H Mean Platelet Volume 4.9 FL (6.5-10.1) L Neutrophils (%) (Auto) % (45.0-75.0) Lymphocytes (%) (Auto) % (20.0-45.0) Monocytes (%) (Auto) % (1.0-10.0) Eosinophils (%) (Auto) % (0.0-3.0) Basophils (%) (Auto) % (0.0-2.0) Differential Total Cells Counted 100 Neutrophils % (Manual) 87 % (45-75) H Lymphocytes % (Manual) 5 % (20-45) L Monocytes % (Manual) 6 % (1-10) Eosinophils % (Manual) 0 % (0-3) Basophils % (Manual) 0 % (0-2) Band Neutrophils 2 % (0-8) Platelet Estimate Increased H Platelet Morphology Normal Polychromasia 1+ Hypochromasia 2+ Anisocytosis 2+ Sodium Level 140 MMOL/L (136-145) Potassium Level 4.0 MMOL/L (3.5-5.1) Chloride Level 106 MMOL/L (98-107) Carbon Dioxide Level 26 MMOL/L (21-32) Anion Gap 8 mmol/L (5-15) Blood Urea Nitrogen 13 mg/dL (7-18) Creatinine 0.8 MG/DL (0.55-1.30) Estimat Glomerular Filtration Rate > 60 mL/min (>60) Glucose Level 207 MG/DL (74-106) H Calcium Level 9.1 MG/DL (8.5-10.1) Magnesium Level 2.2 MG/DL (1.8-2.4) Total Bilirubin 0.3 MG/DL (0.2-1.0) Aspartate Amino Transf (AST/SGOT) 15 U/L (15-37) Alanine Aminotransferase (ALT/SGPT) 14 U/L (12-78) Alkaline Phosphatase 80 U/L (46-116) Total Creatine Kinase 14 U/L (26-308) L Troponin I 0.000 ng/mL (0.000-0.056) Pro-B-Type Natriuretic Peptide 248 pg/mL (0-125) H Total Protein 6.1 G/DL (6.4-8.2) L Albumin 1.9 G/DL (3.4-5.0) L Globulin 4.2 g/dL Albumin/Globulin Ratio 0.5 (1.0-2.7) L Lipase 56 U/L (73-393) L Lactic Acid Level 2.50 mmol/L (0.4-2.0) H Urine Color Yellow Urine Appearance Very cloudy Urine pH 8 (4.5-8.0) Urine Specific [place] 1.015 (1.005-1.035) Urine Protein 2+ (NEGATIVE) H Urine Glucose (UA) Negative (NEGATIVE) Urine Ketones Negative (NEGATIVE) Urine Blood 5+ (NEGATIVE) H Urine Nitrite Negative (NEGATIVE) Urine Bilirubin Negative (NEGATIVE) Urine Urobilinogen Normal MG/DL (0.0-1.0) Urine Leukocyte Esterase 3+ (NEGATIVE) H Urine RBC 5-10 /HPF (0 - 0) H Urine WBC 10-15 /HPF (0 - 0) H Urine Squamous Epithelial Cells None /LPF (NONE/OCC) Urine Bacteria Many /HPF (NONE) H Test 03/21/19 18:50 03/22/19 05:50 Lactic Acid Level 2.40 mmol/L (0.66-2.22) H White Blood Count 13.1 K/UL (4.8-10.8) H Red Blood Count 3.26 M/UL (4.70-6.10) L Hemoglobin 8.8 G/DL (14.2-18.0) #L Hematocrit 28.9 % (42.0-52.0) L Mean Corpuscular Volume 89 FL (80-99) Mean Corpuscular Hemoglobin 27.0 PG (27.0-31.0) Mean Corpuscular Hemoglobin Concent 30.4 G/DL (32.0-36.0) L Red Cell Distribution Width 17.6 % (11.6-14.8) H Platelet Count 580 K/UL (150-450) H Mean Platelet Volume 4.8 FL (6.5-10.1) L Neutrophils (%) (Auto) % (45.0-75.0) Lymphocytes (%) (Auto) % (20.0-45.0) Monocytes (%) (Auto) % (1.0-10.0) Eosinophils (%) (Auto) % (0.0-3.0) Basophils (%) (Auto) % (0.0-2.0) Neutrophils % (Manual) Pending Lymphocytes % (Manual) Pending Platelet Estimate Pending Platelet Morphology Pending Sodium Level 143 MMOL/L (136-145) Potassium Level 3.6 MMOL/L (3.5-5.1) Chloride Level 107 MMOL/L (98-107) Carbon Dioxide Level 27 MMOL/L (21-32) Anion Gap 9 mmol/L (5-15) Blood Urea Nitrogen 10 mg/dL (7-18) Creatinine 0.7 MG/DL (0.55-1.30) Estimat Glomerular Filtration Rate > 60 mL/min (>60) Glucose Level 87 MG/DL (74-106) # Calcium Level 8.9 MG/DL (8.5-10.1) General Appearance: well appearing, no apparent distress, alert Head: normocephalic EENT: PERRL/EOMI, normal ENT inspection Neck: supple Respiratory: normal breath sounds, no respiratory distress CV: normal rate GI: normal inspection, non tender, soft, normal bowel sounds, non-distended : deferred Musculoskeletal: normal inspection, back normal Neurologic: alert, responsive Lymphatic: normal inspection, no adenopathy Current Medications Medications (Trade) Dose Ordered Sig/Stephani Route PRN Reason Start Time Stop Time Status Last Admin Dose Admin Acetaminophen (Tylenol) 500 mg Q4H PRN ORAL Mild Pain/Temp > 100.5 03/22/19 00:00 04/21/19 00:00 Cefepime HCl 1 gm/ Dextrose 55 ml @ 110 mls/hr EVERY 12 HOURS IVPB 03/22/19 09:00 03/29/19 08:59 03/22/19 09:14 Chlorhexidine Gluconate (Yesi-Hex 2%) 1 applic DAILY@2000 TOPIC 03/21/19 20:00 04/20/19 19:59 Iopamidol (Isovue-300 100ml) 100 ml NOW PRN INJ Radiology Procedure 03/21/19 14:00 Sodium Chloride 1,000 ml @ 75 mls/hr [id number] IV 03/22/19 06:00 04/21/19 05:59 03/22/19 06:23 Problems: # Anemia of chronic disease (or of iron deficiency) due to underlying chronic medical issues, multifactorial --> Anemia workup has been ordered, rule out gi bleed --> No evidence of hemolysis is noted, peripheral smear has been reviewed. --> Hgb goal >7. Transfuse prn. --> Epogen or iron at this time is not particularly indicated --> Medications have been reviewed --> low threshold for gi evaluation in case has occult + # Anemia due to Hematuria --> per gi recs --> conservative management --> may consider gu as per pcp # Leukocytosis/elevated white blood cell count, unspecified likely related to underlying stress reaction, smoking v more likely infection --> have reviewed peripheral smear and bandemia/neutrophilia noted --> on cefepime per id --> monitor for resolution # Hematuria --> currently improved # Sepsis POA --> consider abx needed The timing of this note does not necessarily reflect the time of the patient was seen. GREATLY APPRECIATE CONSULTATION. Kevin Moran MD Mar 22, 2019 15:47
--- NOTE | 2019-03-22 15:50 | NUR ---
CASE MANAGEMENT:REVIEW 68 YR OLD MALE BIBA FROM [facility] CC: ABNORMAL LABS SI: SEPSIS. GIB. ANEMIA 98.0 106 18 128/51 94% ON RA WBC+13.4 H/H-6.7/23.1 IS: 1L NS BOLUS 2L NS BOLUS CT ABD/PELVIS CHEST XRAY BLOOD CX TRANSFUSE 2 UNITS PRBC'S : TO TELEMETRY DCP: WILL RETURN TO [facility] INTERQUAL CRITERIA MET
[2019-03-22 16:00] VITALS: BP 107/70
--- NOTE | 2019-03-22 18:02 | NUR ---
NURSE NOTES: Pt refused PICC line dressing change. "Tomorrow!! not today...."
[2019-03-22] MEDS ORDERED: Acetaminophen 500mg (ES) tab ORAL PRN ×2 (18:27)
--- NOTE | 2019-03-22 18:50 | NUR ---
TRANSFER TO FLOOR: Patient transferred to [facility], per Dr. Werner. Report given to Naa Chaparro RN. Pt. in stable condition.
--- NOTE | 2019-03-22 18:57 | NUR ---
NURSE NOTES: [facility] Patient is alert and oriented x1. Verbally responsive. Not in respiratory/cardiac distress. Breathing is even and unlabored. Skin assessment done, skin intact on pressure site but noted with right arm swollen. Per tele nurse, it was addressed to the doctors. No belongings. re-orientation given about the unit. Bed is in lowest position and locked. Call light within reach. Will continue plan of care.
--- NOTE | 2019-03-22 19:35 | NUR ---
NURSE NOTES: Patient in bed, asleep, arousable to name. No s/s respiratory/cardiac distress. Noted with right arm swelling. PICC line in right upper arm in place. Bed is in lowest position and locked. Call light within reach. Bed alarm on. Will continue to monitor. Addendum: 03/22/19 at 2208 by MARISOL ANTONIO RN RN Simpson in place, draining urine, simpson anchor in place as well.
[2019-03-22 20:24] VITALS: BP 113/73
[2019-03-22] MEDS: Cefepime HCl 1 GM in D5W 55 ML IVPB SCH (20:54)
[2019-03-22] MEDS: Dyna-Hex 2% Top Sol 2oz TOPIC SCH (20:54)
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
--- NOTE | 2019-03-22 23:15 | History and Physical Report ---
DATE OF ADMISSION: 03/21/2019 HISTORY OF PRESENT ILLNESS: The patient is admitted for severe anemia, sepsis, GI bleed, lung cancer, DNR as well as for UTI. The patient has advanced dementia, very poor historian, cannot get a reliable history from the patient due to dementia. Basically admitted because of elevated white count and severe anemia. The patient denies nausea, vomiting, diarrhea. Denies cough. Denies shortness of breath. Denies chills. PAST MEDICAL HISTORY: Malignant brain tumor, anemia, NIDDM, history of COPD, history of BPH, history of UTI, history of hypertension. ALLERGIES: Penicillin. PAST SURGICAL HISTORY: Head surgery. SOCIAL HISTORY: The patient denies smoking, alcohol, or illicit drugs. . REVIEW OF SYSTEMS: Unable to obtain, very poor historian. PHYSICAL EXAMINATION: VITAL SIGNS: Temperature 97.7, pulse 95, blood pressure 104/72. HEENT: PERRLA. NECK: Supple. No lymphadenopathy. CHEST: Clear to auscultation. CARDIOVASCULAR: Regular rate and rhythm. The right leg is edematous. Right arm is edematous. GASTROINTESTINAL: Soft, nontender, nondistended. No organomegaly. EXTREMITIES: No edema. Reflexes equal on both sides. Moves all extremities. NEUROLOGIC: Oriented to name only. Does not follow neurological exam due to his baseline dementia. LABORATORY DATA: WBC of 13.4, hemoglobin 6.7, platelets of 519. Sodium 143, potassium 3.6, BUN of 10, creatinine of 1.7. ASSESSMENT AND PLAN: The patient is admitted for possible GI bleed, sepsis, anemia, UTI, history of lung cancer, DNR. I have basically consulted Dr. Chang, Dr. Kevin Moran, Dr. Baron, and Dr. Beaulieu. Antibiotics per Dr. Beaulieu. Scott Werner M.D. DR: NILSON JOB#: [id number] CC:
[2019-03-23 00:44] VITALS: BP 121/77
--- NOTE | 2019-03-23 03:00 | Consultation ---
DATE OF CONSULTATION: 03/22/2019 INFECTIOUS DISEASE CONSULTATION CONSULTING PHYSICIAN: Juan Pablo Beaulieu M.D. PRIMARY ATTENDING PHYSICIAN: Scott Werner M.D. REASON FOR CONSULTATION: Sepsis. HISTORY OF PRESENT ILLNESS: This is a 68-year-old male admitted yesterday from halfway facility because of abnormal labs. The patient had anemia with hemoglobin of 6.7 and leukocytosis of 13.4. In addition, has lactic acidosis. The patient has a history of lung cancer, pyuria, abnormal chest x-ray. PAST MEDICAL HISTORY: Significant for lung cancer, anemia of neoplastic disease, obstructive hydrocephalus, cerebral edema, diabetes mellitus, right axillary vein thrombosis, dysphagia ALLERGIES: Allergic to penicillin, but tolerated cephalosporin. MEDICATIONS: Cefepime, sodium chloride, Tylenol, got a dose of vancomycin and ceftriaxone in the ER. He received ceftriaxone yesterday and getting cefepime today. SOCIAL HISTORY: [facility] resident, very poor historian. No other history available expect that he denies chest pain, coughing, problem passing urine. PHYSICAL EXAMINATION: VITAL SIGNS: Pulse 110, temperature 98.4, blood pressure 115/83. No fever since admission here. GENERAL APPEARANCE: Seems cachectic. HEAD AND NECK: No oral lesion. HEART: Tachycardic. Has right arm PICC line. LUNGS: Decreased sounds in the right side. Has rhonchi in the left side. ABDOMEN: Soft and nontender. EXTREMITIES: Edema of right arm. Severe muscle atrophy of legs, has finger clubbing. NEUROLOGIC: He is awake and responsive. LABORATORY AND DIAGNOSTIC DATA: WBC today 13.1, hemoglobin 8.3, hematocrit 28.9. Sodium 143, potassium 3.6, chloride 107, bicarbonate 27, BUN 10, creatinine 0.7. Lactic acid 2.4. Albumin is 1.9. UA showed WBC of 10 to 15, rbc's 5 to 10, leukocyte esterase 2+. Urine culture growing gram-negative rods. IMPRESSION: 1. Sepsis with leukocytosis, tachycardia, lactic acidosis. 2. The patient has pyuria and bacteriuria, likely UTI. 3. Right-sided pleural effusion or atelectasis, may have underlying pneumonia, metastatic lung cancer. 4. Diabetes mellitus. 5. Hypertension. 6. Severe anemia. RECOMMENDATION: Continue with cefepime. We will follow up the culture. Prognosis is very poor. The patient is DNR/DNI. At the end of my exam, I thank Dr. Werner for involving me in the care of this patient. Juan Pablo Beaulieu M.D. DR: Mattie JOB#: [id number] CC: RORO
[2019-03-23 04:00] VITALS: BP 141/90
[2019-03-23 05:56] LABS: HEMATOCRIT 29.4 % (42.0-52.0); HEMOGLOBIN 8.9 G/DL (14.2-18.0); MEAN CORPUSCULAR VOLUME 88 FL (80-99); PLATELET COUNT 584 K/UL (150-450); RED BLOOD COUNT 3.32 M/UL (4.70-6.10); RED CELL DISTRIBUTION WIDTH 17.8 % (11.6-14.8); WHITE BLOOD COUNT 13.8 K/UL (4.8-10.8)
[2019-03-23 06:08] LABS: INR 1.1 (0.9-1.1)
--- NOTE | 2019-03-23 06:17 | NUR ---
NURSE NOTES: PATIENT WAS SEEN BY SWITCHBOARD MECHANIC TRYING TO REMOVE PICC LINE. PATIENT WOULD NOT LISTEN TO STOP TRYING TO PICC. SOFT WRIST BILATERAL RESTRAINTS HAD TO BE PUT ON FOR PATIENT SAFETY. CALLED AND LEFT MESSAGE FOR DR. HARTMANN AND DR. Rudy KRAMER. RECEIVED ORDER FOR RESTRAINTS FROM DR. Rudy KRAMER. PATIENT IN NO DISTRESS AT THIS TIME. CHARGE NURSE AWARE. Addendum: 03/23/19 at 0620 by MARISOL ANTONIO RN RN PATIENT WOULD NOT LISTEN TO NURSES'S INSTRUCTIONS TO STOP TRYING TO REMOVE PICC.*
--- NOTE | 2019-03-23 06:21 | NUR ---
NURSE NOTES: UNABLE TO COLLECT OB STOOL DUE TO PATIENT NOT HAVING BOWEL MOVEMENT.
[2019-03-23 06:30] LABS: ALANINE AMINOTRANSFERASE 14 U/L (12-78); ALBUMIN 2.1 G/DL (3.4-5.0); ALBUMIN/GLOBULIN RATIO 0.5 (1.0-2.7); ALKALINE PHOSPHATASE 82 U/L (46-116); ANION GAP 9 mmol/L (5-15); ASPARTATE AMINO TRANSFERASE 11 U/L (15-37); BILIRUBIN,TOTAL 0.6 MG/DL (0.2-1.0); BLOOD UREA NITROGEN 9 mg/dL (7-18); CALCIUM 9.3 MG/DL (8.5-10.1); CARBON DIOXIDE 29 MMOL/L (21-32); CHLORIDE 109 MMOL/L (98-107); CREATININE 0.7 MG/DL (0.55-1.30); FERRITIN 262 NG/ML (8-388); SODIUM 147 MMOL/L (136-145)
[2019-03-23 06:44] LABS: % IRON SATURATION 5 % (15-50); IRON 6 ug/dL (50-175); TOTAL IRON BINDING CAPACITY 132 ug/dL (250-450)
--- NOTE | 2019-03-23 07:17 | NUR ---
HAND-OFF: Report given to Lucas ROBLES RN. ENDORSED TO AM NURSE TO FOLLOW UP WITH DR. HARTMANN REGARDING CLARIFICATION IN REGARDS WITH THE RESTRAINTS VS. 1:1 SITTER.
--- NOTE | 2019-03-23 07:43 | NUR ---
NURSE NOTES: Pt resting in bed. no SOB noted. RUE edema, elevated on pillow. soft mittens on BUE, skin intact, N/V intact. simpson in place. PICC line in place, dressing CDI. fall and asp precautions maintained. will continue to monitor.
[2019-03-23 08:00] VITALS: BP 126/88
--- NOTE | 2019-03-23 09:01 | General Progress Note ---
Assessment/Plan Assessment/Plan: (1) Hematuria (2) Anemia (3) GI bleed (4) Sepsis Plan Speech therapy evaluation noted, patient placed on pure and nectar thick diet POLST reviewed Possible anemia secondary to hematuria Conservative management anemia work up OB stool to rule out GI bleed, will consider endoscopy if positive monitor H&H, prn transfusions bowel regimen ppi fu labs Subjective Allergies: Coded Allergies: PENICILLINS (Verified Allergy, Unknown, 03/21/19) Objective Last 24 Hour Vital Signs Date Time Temp Pulse Resp B/P (MAP) Pulse Ox O2 Delivery O2 Flow Rate FiO2 03/23/19 08:00 98.7 110 20 126/88 (101) 95 03/23/19 04:00 97.6 108 18 141/90 (107) 97 03/23/19 00:58 101 03/23/19 00:44 98.3 116 18 121/77 (92) 98 03/22/19 21:56 Room Air 03/22/19 20:24 97.8 106 18 113/73 (86) 97 03/22/19 16:00 102 03/22/19 16:00 98.1 77 20 107/70 (82) 99 03/22/19 12:00 97.2 97 18 122/84 (97) 95 Intake and Output 03/22/19 03/23/19 18:59 06:59 Intake Total 406 ml 55 ml Output Total 400 ml 600 ml Balance 6 ml -545 ml Intake Oral 360 ml IV Total 46 ml 55 ml Output Urine Total 400 ml 600 ml Laboratory Tests 03/22/19 17:13: Haptoglobin [Pending], Fibrinogen 688H, Carcinoembryonic Antigen 9.1H, Prostate Specific Antigen 3.32, Hepatitis A IgM Antibody Negative, Hepatitis B Surface Antigen Negative, Hepatitis B Core IgM Antibody Negative, Hepatitis C Antibody < 0.1, HIV (1&2) Antibody Rapid Negative 03/23/19 05:00: White Blood Count 13.8H, Red Blood Count 3.32L, Hemoglobin 8.9L, Hematocrit 29.4L, Mean Corpuscular Volume 88, Mean Corpuscular Hemoglobin 26.9L, Mean Corpuscular Hemoglobin Concent 30.4L, Red Cell Distribution Width 17.8H, Platelet Count 584H, Mean Platelet Volume 4.7L, Neutrophils (%) (Auto) , Lymphocytes (%) (Auto) , Monocytes (%) (Auto) , Eosinophils (%) (Auto) , Basophils (%) (Auto) , Neutrophils % (Manual) [Pending], Lymphocytes % (Manual) [Pending], Platelet Estimate [Pending], Platelet Morphology [Pending], Reticulocyte Count [Pending], Prothrombin Time 11.5, Prothromb Time International Ratio 1.1, Activated Partial Thromboplast Time 36H, Sodium Level 147H, Potassium Level 4.0, Chloride Level 109H, Carbon Dioxide Level 29, Anion Gap 9, Blood Urea Nitrogen 9, Creatinine 0.7, Estimat Glomerular Filtration Rate > 60, Glucose Level 98, Calcium Level 9.3, Iron Level 6L, Total Iron Binding Capacity 132L, Percent Iron Saturation 5L, Unsaturated Iron Binding 126 , Ferritin 262, Total Bilirubin 0.6, Aspartate Amino Transf (AST/SGOT) 11L, Alanine Aminotransferase (ALT/SGPT) 14, Alkaline Phosphatase 82, Total Protein 6.5, Albumin 2.1L, Globulin 4.4, Albumin/Globulin Ratio 0.5L, Vitamin B12 Level 1124H, Folate 10.1, Thyroid Stimulating Hormone (TSH) 5.090H, Free Thyroxine 1.17 Height (Feet): 5 Height (Inches): 8.00 Weight (Pounds): 180 General Appearance: alert EENT: normal ENT inspection Neck: supple Cardiovascular: normal rate Respiratory/Chest: decreased breath sounds Abdomen: normal bowel sounds, non tender, soft Extremities: non-tender Bronson Baron MD Mar 23, 2019 09:01
[2019-03-23] MEDS: Cefepime HCl 1 GM in D5W 55 ML IVPB SCH ×2 (09:35→21:17)
--- NOTE | 2019-03-23 11:29 | Infectious Diseases Prog Note ---
Assessment/Plan Assessment/Plan IMPRESSION: 1. Sepsis with leukocytosis, tachycardia, lactic acidosis. 2. Pseudomonas UTI. 3. Right-sided pleural effusion or atelectasis, may have underlying pneumonia, . 4. Diabetes mellitus. 5. Hypertension. 6. Severe anemia. 7. Metastatic lung cancer RECOMMENDATION: Continue with cefepime Subjective ROS Limited/Unobtainable: Yes Neurologic: Reports: confusion, other - on restraint Allergies: Coded Allergies: PENICILLINS (Verified Allergy, Unknown, 03/21/19) Objective Vital Signs Last 24 Hour Vital Signs Date Time Temp Pulse Resp B/P (MAP) Pulse Ox O2 Delivery O2 Flow Rate FiO2 03/23/19 09:00 Room Air 03/23/19 08:00 98.7 110 20 126/88 (101) 95 03/23/19 04:00 97.6 108 18 141/90 (107) 97 03/23/19 00:58 101 03/23/19 00:44 98.3 116 18 121/77 (92) 98 03/22/19 21:56 Room Air 03/22/19 20:24 97.8 106 18 113/73 (86) 97 03/22/19 16:00 102 03/22/19 16:00 98.1 77 20 107/70 (82) 99 03/22/19 12:00 97.2 97 18 122/84 (97) 95 Height (Feet): 5 Height (Inches): 8.00 Weight (Pounds): 180 General Appearance: no acute distress HEENT: mucous membranes moist Respiratory/Chest: decreased breath sounds Cardiovascular: tachycardia, other - R arm PICC line Abdomen: soft, non tender Extremities: no edema Neurologic/Psychiatric: other - sleeping Microbiology Date/Time Source Procedure Growth Status 03/21/19 14:35 Blood Blood Culture - Preliminary NO GROWTH AFTER 24 HOURS Resulted 03/21/19 14:20 Blood Blood Culture - Preliminary NO GROWTH AFTER 24 HOURS Resulted 03/21/19 18:00 Nasal Nares MRSA Culture - Final NO METHICILLIN RESISTANT STAPH AUREUS... Complete 03/21/19 16:40 Urine,Clean Catch Urine Culture - Final Pseudomonas Aeruginosa Complete 03/21/19 18:00 Rectum VRE Culture - Final NO VANCOMYCIN RESISTANT ENTEROCOCCUS ... Complete 03/21/19 18:00 Rectum - Final NO CARBAPENEM-RESISTANT ENTEROBACTERI... Complete Laboratory Tests Test 03/22/19 17:13 7/4/19 05:00 Haptoglobin Pending Fibrinogen 688 mg/dL (200-400) H Carcinoembryonic Antigen 9.1 ng/mL (0.0-4.7) H Prostate Specific Antigen 3.32 ng/mL (0.13-4.0) Hepatitis A IgM Antibody Negative (Negative) Hepatitis B Surface Antigen Negative (Negative) Hepatitis B Core IgM Antibody Negative (Negative) Hepatitis C Antibody <0.1 s/co ratio HIV (1&2) Antibody Rapid Negative (NEGATIVE) White Blood Count 13.8 K/UL (4.8-10.8) H Red Blood Count 3.32 M/UL (4.70-6.10) L Hemoglobin 8.9 G/DL (14.2-18.0) L Hematocrit 29.4 % (42.0-52.0) L Mean Corpuscular Volume 88 FL (80-99) Mean Corpuscular Hemoglobin 26.9 PG (27.0-31.0) L Mean Corpuscular Hemoglobin Concent 30.4 G/DL (32.0-36.0) L Red Cell Distribution Width 17.8 % (11.6-14.8) H Platelet Count 584 K/UL (150-450) H Mean Platelet Volume 4.7 FL (6.5-10.1) L Neutrophils (%) (Auto) % (45.0-75.0) Lymphocytes (%) (Auto) % (20.0-45.0) Monocytes (%) (Auto) % (1.0-10.0) Eosinophils (%) (Auto) % (0.0-3.0) Basophils (%) (Auto) % (0.0-2.0) Differential Total Cells Counted 100 Neutrophils % (Manual) 88 % (45-75) H Lymphocytes % (Manual) 5 % (20-45) L Monocytes % (Manual) 7 % (1-10) Eosinophils % (Manual) 0 % (0-3) Basophils % (Manual) 0 % (0-2) Band Neutrophils 0 % (0-8) Platelet Estimate Increased H Platelet Morphology Normal Hypochromasia 2+ Anisocytosis 1+ Reticulocyte Count 2.0 % (0.5-2.0) Prothrombin Time 11.5 SEC (9.30-11.50) Prothromb Time International Ratio 1.1 (0.9-1.1) Activated Partial Thromboplast Time 36 SEC (23-33) H Sodium Level 147 MMOL/L (136-145) H Potassium Level 4.0 MMOL/L (3.5-5.1) Chloride Level 109 MMOL/L (98-107) H Carbon Dioxide Level 29 MMOL/L (21-32) Anion Gap 9 mmol/L (5-15) Blood Urea Nitrogen 9 mg/dL (7-18) Creatinine 0.7 MG/DL (0.55-1.30) Estimat Glomerular Filtration Rate > 60 mL/min (>60) Glucose Level 98 MG/DL (74-106) Calcium Level 9.3 MG/DL (8.5-10.1) Iron Level 6 ug/dL (50-175) L Total Iron Binding Capacity 132 ug/dL (250-450) L Percent Iron Saturation 5 % (15-50) L Unsaturated Iron Binding 126 ug/dL (112-346) Ferritin 262 NG/ML (8-388) Total Bilirubin 0.6 MG/DL (0.2-1.0) Aspartate Amino Transf (AST/SGOT) 11 U/L (15-37) L Alanine Aminotransferase (ALT/SGPT) 14 U/L (12-78) Alkaline Phosphatase 82 U/L (46-116) Total Protein 6.5 G/DL (6.4-8.2) Albumin 2.1 G/DL (3.4-5.0) L Globulin 4.4 g/dL Albumin/Globulin Ratio 0.5 (1.0-2.7) L Vitamin B12 Level 1124 PG/ML (193-986) H Folate 10.1 NG/ML (8.6-58.9) Thyroid Stimulating Hormone (TSH) 5.090 uiU/mL (0.358-3.740) Free Thyroxine 1.17 NG/DL (0.76-1.46) Current Medications Medications (Trade) Dose Ordered Sig/Stephani Route PRN Reason Start Time Stop Time Status Last Admin Dose Admin Acetaminophen (Tylenol) 500 mg Q4H PRN ORAL Mild Pain/Temp > 100.5 03/22/19 18:27 04/21/19 18:26 Cefepime HCl 1 gm/ Dextrose 55 ml @ 110 mls/hr EVERY 12 HOURS IVPB 03/22/19 21:00 03/29/19 08:59 03/23/19 09:35 Chlorhexidine Gluconate (Yesi-Hex 2%) 1 applic DAILY@1999 TOPIC 03/22/19 20:00 04/20/19 19:59 03/22/19 20:54 Iopamidol (Isovue-300 100ml) 100 ml NOW PRN INJ Radiology Procedure 03/23/19 14:00 04/22/19 13:59 Juan Pablo Beaulieu MD Mar 23, 2019 11:29
[2019-03-23 11:56] VITALS: BP 119/81
--- NOTE | 2019-03-23 12:26 | General Progress Note ---
Assessment/Plan Assessment/Plan: 68 year old male with PMH of malignant brain tumor, anemia, NIDDM, COPD, BPH, history of UTI, hypertension admitted for severe anemia, sepsis, GI bleed, lung cancer, UTI. #Sepsis 2/2 pseudomonas UTI -cont cefepime per ID -ID consult appreciated -CTM #Severe anemia likely 2/2 GI source and DIRIS -Gi Consult appreciated -Venofer started -Hematology consult aprpeciated -Hb acceptable s/p transfusion - #Diabetes mellitus -ISS -carb controlled feeding -can add lantus if needed -FSG QAC and hs #Hypertension -Will hold antihypertensives due to sepsis -BP currently acceptable -can restart home meds -Norvasc 10mg and lisinopril 20mg if needed #BPH -cont flomax #Metastatic lung cancer Code: DNAR Subjective Date patient seen: Mar 23, 2019 Allergies: Coded Allergies: PENICILLINS (Verified Allergy, Unknown, 03/21/19) All Systems: reviewed and negative except above Subjective No acute overnight events, HR improved, HB acceptable. Objective Last 24 Hour Vital Signs Date Time Temp Pulse Resp B/P (MAP) Pulse Ox O2 Delivery O2 Flow Rate FiO2 03/23/19 11:56 98.6 94 20 119/81 (94) 96 03/23/19 09:00 Room Air 03/23/19 08:00 98.7 110 20 126/88 (101) 95 03/23/19 04:00 97.6 108 18 141/90 (107) 97 03/23/19 00:58 101 03/23/19 00:44 98.3 116 18 121/77 (92) 98 03/22/19 21:56 Room Air 03/22/19 20:24 97.8 106 18 113/73 (86) 97 03/22/19 16:00 102 03/22/19 16:00 98.1 77 20 107/70 (82) 99 Intake and Output 03/22/19 03/23/19 19:00 07:00 Intake Total 360 ml 55 ml Output Total 400 ml 600 ml Balance -40 ml -545 ml Intake Oral 360 ml IV Total 55 ml Output Urine Total 400 ml 600 ml Laboratory Tests 03/22/19 17:13: Haptoglobin [Pending], Fibrinogen 688H, Carcinoembryonic Antigen 9.1H, Prostate Specific Antigen 3.32, Hepatitis A IgM Antibody Negative, Hepatitis B Surface Antigen Negative, Hepatitis B Core IgM Antibody Negative, Hepatitis C Antibody < 0.1, HIV (1&2) Antibody Rapid Negative 03/23/19 05:00: White Blood Count 13.8H, Red Blood Count 3.32L, Hemoglobin 8.9L, Hematocrit 29.4L, Mean Corpuscular Volume 88, Mean Corpuscular Hemoglobin 26.9L, Mean Corpuscular Hemoglobin Concent 30.4L, Red Cell Distribution Width 17.8H, Platelet Count 584H, Mean Platelet Volume 4.7L, Neutrophils (%) (Auto) , Lymphocytes (%) (Auto) , Monocytes (%) (Auto) , Eosinophils (%) (Auto) , Basophils (%) (Auto) , Differential Total Cells Counted 100, Neutrophils % ( Manual) 88H, Lymphocytes % (Manual) 5L, Monocytes % (Manual) 7, Eosinophils % ( Manual) 0, Basophils % (Manual) 0, Band Neutrophils 0, Platelet Estimate IncreasedH, Platelet Morphology Normal, Hypochromasia 2+, Anisocytosis 1+, Reticulocyte Count 2.0, Prothrombin Time 11.5, Prothromb Time International Ratio 1.1, Activated Partial Thromboplast Time 36H, Sodium Level 147H, Potassium Level 4.0, Chloride Level 109H, Carbon Dioxide Level 29, Anion Gap 9, Blood Urea Nitrogen 9, Creatinine 0.7, Estimat Glomerular Filtration Rate > 60, Glucose Level 98, Calcium Level 9.3, Iron Level 6L, Total Iron Binding Capacity 132L, Percent Iron Saturation 5L, Unsaturated Iron Binding 126, Ferritin 262, Total Bilirubin 0.6, Aspartate Amino Transf (AST/SGOT) 11L, Alanine Aminotransferase (ALT/SGPT) 14, Alkaline Phosphatase 82, Total Protein 6.5, Albumin 2.1L, Globulin 4.4, Albumin/Globulin Ratio 0.5L, Vitamin B12 Level 1124H , Folate 10.1, Thyroid Stimulating Hormone (TSH) 5.090H, Free Thyroxine 1.17 Height (Feet): 5 Height (Inches): 8.00 Weight (Pounds): 180 Natalie Wilkins MD Mar 23, 2019 12:26
[2019-03-23] MEDS ORDERED: Isovue-300 100ml vial INJ PRN (14:00)
[2019-03-23 16:00] VITALS: BP 124/86
[2019-03-23] MEDS: NovoLOG Insulin Flexpen SUBQ SCH ×2 (16:12→21:00)
--- NOTE | 2019-03-23 19:13 | CDS Physician Query ---
Clarification is required for compliance, coding accuracy, and to reflect severity of illness for this patient Dear Date: A diagnosis of "Pneumonia" is documented, and the patient is on: H&P: " 3. Right-sided pleural effusion or atelectasis, may have underlying pneumonia, metastatic lung cancer." Infectious cons: "3. Right-sided pleural effusion or atelectasis, may have underlying pneumonia," Rx: Vanco+Cefepime+cefriaxon CT Abdomen Pelvis w/Contrast: Moderate right pleural effusion and posterior basal atelectasis. Please specify the underlying etiology: [] Gram +Positive Organism(s) [] Anaerobes [] Gram -Negative Organism(s) [] Aspiration [] Pseudomonas [] Mycoplasma [] MRSA [] Not Applicable [] Other organism(s). Please specify: Present on Admission: [] Yes [] No [] Clinically Undetermined Physician signature Date Please also document in your Progress Notes and/or Discharge Summary and indicate if the condition was present on admission. RORO
--- NOTE | 2019-03-23 19:30 | NUR ---
NURSE NOTES: RECEIVED PATIENT LYING IN BED, AWAKE, ALERT/ORIENTED TO SELF, REALITY ORIENTATION PROVIDED, VERY FORGETFUL, REQUIRE REPETITIVE TEACHINGS, DENIES PAIN. NO SIGNS AND SYMPTOMS OF ACUTE CARDIO RESPIRATORY DISTRESS/SHORTNESS OF BREATH, BILATERAL UPPER EXTREMITIES EDEMATOUS, RIGHT MORE PRONOUNCED THAN THE LEFT. PICC LINE RIGHT UPPER EXTREMITY/DOUBLE LUMEN/PLACED 03/21/19. BILATERAL WRIST RESTRAINTS INTACT TO PREVENT PATIENT FROM REMOVING TUBINGS. CRUZ CATHETER INTACT/PATENT, DRAINING CLOUDY YELLOW URINE VIA GRAVITY, POSITIONED BELOW LEVEL OF WAIST TO PREVENT URINE BACKFLOW. REPOSITIONED FOR COMFORT/PRESSURE RELIEF, TOLERATED WELL. SIDE RAILS UP X3/BED IN LOWEST POSITION FOR SAFETY. CALL LIGHT WITHN REACH. FREQUENT ROUNDING FOR SAFETY/NEEDS. NAD.
[2019-03-23 20:00] VITALS: BP 116/78
[2019-03-23] MEDS: Iron Sucrose 100 MG in NS 55 ML IV SCH (21:17)
[2019-03-23] MEDS: Dyna-Hex 2% Top Sol 2oz TOPIC SCH (21:29)
[2019-03-24] VITALS: BP 132/87
[2019-03-24 04:00] VITALS: BP 119/76
[2019-03-24] MEDS: NovoLOG Insulin Flexpen SUBQ SCH ×4 (06:11→20:20)
--- NOTE | 2019-03-24 06:41 | NUR ---
NURSE NOTES: RESTED WELL, NO SIGNIFICANT CHANGE OF CONDITION NOTED THROUGHOUT THE NIGHT. SAFETY MAINTAINED. NAD.
[2019-03-24 06:58] LABS: HEMATOCRIT 31.7 % (42.0-52.0); HEMOGLOBIN 9.5 G/DL (14.2-18.0); MEAN CORPUSCULAR VOLUME 89 FL (80-99); PLATELET COUNT 578 K/UL (150-450); RED BLOOD COUNT 3.58 M/UL (4.70-6.10); RED CELL DISTRIBUTION WIDTH 18.4 % (11.6-14.8); WHITE BLOOD COUNT 13.8 K/UL (4.8-10.8)
[2019-03-24 07:22] LABS: ANION GAP 8 mmol/L (5-15); BLOOD UREA NITROGEN 9 mg/dL (7-18); CALCIUM 9.5 MG/DL (8.5-10.1); CARBON DIOXIDE 29 MMOL/L (21-32); CHLORIDE 107 MMOL/L (98-107); CREATININE 0.7 MG/DL (0.55-1.30); POTASSIUM 4.1 MMOL/L (3.5-5.1); SODIUM 144 MMOL/L (136-145)
[2019-03-24 08:00] VITALS: BP 136/82
--- NOTE | 2019-03-24 08:37 | NUR ---
NURSE NOTES: HANDOFF RECEIVED FROM MARIO ROBLES.
[2019-03-24] MEDS: Cefepime HCl 1 GM in D5W 55 ML IVPB SCH ×2 (09:58→21:59)
--- NOTE | 2019-03-24 11:48 | Diagnostic Imaging Report ---
Indication: Abdominal pain Technique: Grayscale and duplex Doppler imaging of the abdomen performed. Comparison: None Findings: The liver is unremarkable. Doppler interrogation of the main portal vein shows patency with hepatopedal, monophasic flow. There is no biliary ductal dilatation identified. The CBD measures 3.3 mm The spleen is unremarkable. Gallbladder is unremarkable. No gallstones or wall thickening identified. Sonographic Monsalev's sign was negative per technologist. There demonstrated part of the pancreas, aorta and IVC show no definite abnormalities. There are bilateral renal cysts. There is no hydronephrosis. There is a small right pleural effusion. IMPRESSION: No acute findings identified. Bilateral renal cysts Small right pleural effusion Limited study due to patient positioning difficulties.
--- NOTE | 2019-03-24 11:51 | GI Progress Note ---
Assessment/Plan Problems: (1) Anemia ICD Codes: D64.9 - Anemia, unspecified SNOMED: 588062716 Qualifiers: Qualified Codes: D64.9 - Anemia, unspecified (2) GI bleed ICD Codes: K92.2 - Gastrointestinal hemorrhage, unspecified SNOMED: 73990187 Qualifiers: Qualified Codes: K92.2 - Gastrointestinal hemorrhage, unspecified (3) Hematuria ICD Codes: R31.9 - Hematuria, unspecified SNOMED: [id number] Status: unchanged Status Narrative Discussed with Dr. Baron. Assessment/Plan Speech therapy evaluation noted, patient placed on pure and nectar thick diet POLST reviewed Possible anemia secondary to hematuria Conservative management anemia work up OB stool to rule out GI bleed, will consider endoscopy if positive monitor H&H, prn transfusions bowel regimen ppi fu labs The patient was seen and examined at bedside and all new and available data was reviewed in the patients chart. I agree with the above findings, impression and plan. (Patient seen earlier today. Signature stamp does not reflect patient encounter time.). - Bronson Baron MD Subjective Gastrointestinal/Abdominal: Reports: no symptoms Objective Last 24 Hour Vital Signs Date Time Temp Pulse Resp B/P (MAP) Pulse Ox O2 Delivery O2 Flow Rate FiO2 03/24/19 08:00 98.6 98 19 136/82 (100) 97 03/24/19 04:00 98.7 92 18 119/76 (90) 95 03/24/19 00:00 98.8 100 20 132/87 (102) 95 03/23/19 21:02 Room Air 03/23/19 20:00 98.6 94 20 116/78 (91) 95 03/23/19 16:00 97.7 88 20 124/86 (99) 97 03/23/19 11:56 98.6 94 20 119/81 (94) 96 Intake and Output 03/23/19 03/24/19 18:59 06:59 Intake Total 480 ml 355 ml Output Total 300 ml Balance 480 ml 55 ml Intake Oral 480 ml 240 ml IV Total 115 ml Output Urine Total 300 ml Laboratory Tests Test 03/24/19 06:40 White Blood Count 13.8 K/UL (4.8-10.8) H Red Blood Count 3.58 M/UL (4.70-6.10) L Hemoglobin 9.5 G/DL (14.2-18.0) L Hematocrit 31.7 % (42.0-52.0) L Mean Corpuscular Volume 89 FL (80-99) Mean Corpuscular Hemoglobin 26.6 PG (27.0-31.0) L Mean Corpuscular Hemoglobin Concent 30.0 G/DL (32.0-36.0) L Red Cell Distribution Width 18.4 % (11.6-14.8) H Platelet Count 578 K/UL (150-450) H Mean Platelet Volume 4.9 FL (6.5-10.1) L Neutrophils (%) (Auto) % (45.0-75.0) Lymphocytes (%) (Auto) % (20.0-45.0) Monocytes (%) (Auto) % (1.0-10.0) Eosinophils (%) (Auto) % (0.0-3.0) Basophils (%) (Auto) % (0.0-2.0) Differential Total Cells Counted 100 Neutrophils % (Manual) 81 % (45-75) H Lymphocytes % (Manual) 12 % (20-45) L Monocytes % (Manual) 6 % (1-10) Eosinophils % (Manual) 1 % (0-3) Basophils % (Manual) 0 % (0-2) Band Neutrophils 0 % (0-8) Nucleated Red Blood Cells 1 /100 WBC Platelet Estimate Adequate Platelet Morphology Normal Hypochromasia 2+ Anisocytosis 2+ Sodium Level 144 MMOL/L (136-145) Potassium Level 4.1 MMOL/L (3.5-5.1) Chloride Level 107 MMOL/L (98-107) Carbon Dioxide Level 29 MMOL/L (21-32) Anion Gap 8 mmol/L (5-15) Blood Urea Nitrogen 9 mg/dL (7-18) Creatinine 0.7 MG/DL (0.55-1.30) Estimat Glomerular Filtration Rate > 60 mL/min (>60) Glucose Level 89 MG/DL (74-106) Calcium Level 9.5 MG/DL (8.5-10.1) Height (Feet): 5 Height (Inches): 8.00 Weight (Pounds): 180 General Appearance: no apparent distress Cardiovascular: normal rate Respiratory/Chest: normal breath sounds, no respiratory distress Abdominal Exam: soft Jiang,Alivia-Darrell COOK APPRENTICE Mar 24, 2019 11:51
[2019-03-24 12:00] VITALS: BP 131/79
--- NOTE | 2019-03-24 12:54 | NUR ---
REPAIR ORDER CLERKPOLICE LIAISON OFFICER SI:ANEMIA . GI BLEED VS: BP 116/78, P 100, T 98.6, RR 20, SpO2 95 WBC 13.8, RBC 3.58, H&H 9.5/31.7, Plt count 578, Na 147, IRON 6 IS:CEFEPIME 55ml IVPB IRON SUCROSE 60ml IV NOVOLOG SUBQ PLAN: PUREE & NECTAR THICK DIET PENDING OB STOOL RESULTS PRN TRANSFUSION MED/SURG STATUS
--- NOTE | 2019-03-24 15:29 | NUR ---
SWALLOW/SPEECH THERAPY NOTE: SWALLOW STATUS: PER MANJULA GRACE,PATIENT IS COUGHING AFTER SWALLOWING PUREED TSP. NO COUGH WITH NECTAR THICK LIQUIDS. WILL DOWNGRADE TO LIQUIFIED PUREED LIKE NECTAR THICK SOUP CONSISTENCY AND HAVE ALL BOLUSES AT TSP LEVEL. EDUCATED/TRAINED MARIO OSBORNE AND SANJAY FAIR IN THE UPDATED ASP PRECAUTIONS. PLAN: COMPLETE MOD BARIUM SWALLOW STUDY ON WEDNESDAY OR DO OP IF DC (DO NOT HOLDUP D/C FOR THIS STUDY). Addendum: 03/24/19 at 1530 by AYSHA VALLADARES ENVIRONMENTAL STUDIES FACULTY MEMBER GOALS FOR INTAKE NOT CONSISTENTLY MET (50-75%).
[2019-03-24 16:00] VITALS: BP 132/79
--- NOTE | 2019-03-24 18:04 | General Progress Note ---
Assessment/Plan Status: unchanged Assessment/Plan: 68 year old male with PMH of malignant brain tumor, anemia, NIDDM, COPD, BPH, history of UTI, hypertension admitted for severe anemia, sepsis, GI bleed, lung cancer, UTI. #Sepsis 2/2 pseudomonas UTI -cont cefepime per ID -ID consult appreciated -CTM #Severe anemia likely 2/2 GI source and IDRIS -Gi Consult appreciated -Venofer started -Hematology consult aprpeciated -Hb acceptable s/p transfusion - #Diabetes mellitus -ISS -carb controlled feeding -can add lantus if needed -FSG QAC and hs #Hypertension -Will hold antihypertensives due to sepsis -BP currently acceptable -can restart home meds -Norvasc 10mg and lisinopril 20mg if needed #BPH -cont flomax #Metastatic lung cancer Code: DNAR Subjective Date patient seen: Mar 24, 2019 Allergies: Coded Allergies: PENICILLINS (Verified Allergy, Unknown, 03/21/19) Subjective No acute overnight events, HR improved, HB stable Hypernatremia improved, Objective Last 24 Hour Vital Signs Date Time Temp Pulse Resp B/P (MAP) Pulse Ox O2 Delivery O2 Flow Rate FiO2 03/24/19 16:00 98.3 99 20 132/79 (96) 98 03/24/19 12:00 98.0 100 20 131/79 (96) 98 03/24/19 09:00 Room Air 03/24/19 08:00 98.6 98 19 136/82 (100) 97 03/24/19 04:00 98.7 92 18 119/76 (90) 95 03/24/19 00:00 98.8 100 20 132/87 (102) 95 03/23/19 21:02 Room Air 03/23/19 20:00 98.6 94 20 116/78 (91) 95 Intake and Output 03/23/19 03/24/19 19:00 07:00 Intake Total 480 ml 355 ml Output Total 300 ml Balance 480 ml 55 ml Intake Oral 480 ml 240 ml IV Total 115 ml Output Urine Total 300 ml Laboratory Tests 03/24/19 06:40: White Blood Count 13.8H, Red Blood Count 3.58L, Hemoglobin 9.5L, Hematocrit 31.7L, Mean Corpuscular Volume 89, Mean Corpuscular Hemoglobin 26.6L, Mean Corpuscular Hemoglobin Concent 30.0L, Red Cell Distribution Width 18.4H, Platelet Count 578H, Mean Platelet Volume 4.9L, Neutrophils (%) (Auto) , Lymphocytes (%) (Auto) , Monocytes (%) (Auto) , Eosinophils (%) (Auto) , Basophils (%) (Auto) , Differential Total Cells Counted 100, Neutrophils % ( Manual) 81H, Lymphocytes % (Manual) 12L, Monocytes % (Manual) 6, Eosinophils % ( Manual) 1, Basophils % (Manual) 0, Band Neutrophils 0, Nucleated Red Blood Cells 1, Platelet Estimate Adequate, Platelet Morphology Normal, Hypochromasia 2 +, Anisocytosis 2+, Sodium Level 144, Potassium Level 4.1, Chloride Level 107, Carbon Dioxide Level 29, Anion Gap 8, Blood Urea Nitrogen 9, Creatinine 0.7, Estimat Glomerular Filtration Rate > 60, Glucose Level 89, Calcium Level 9.5 Height (Feet): 5 Height (Inches): 8.00 Weight (Pounds): 180 Natalie Wilkins MD Mar 24, 2019 18:04
--- NOTE | 2019-03-24 19:30 | NUR ---
NURSE NOTES: Received a report from Ana Stanley, RN and Dario RN. Pt is in stable condition. AOX2. On room air. No pain/discomfort noted. Has B soft wrist on. Barnes catheter is draining. R upper arm has a PICC line 2 lumen, patent and intact. Bed in lowest position. Bed alarm is on. Call light within reach. Will continue to monitor.
--- NOTE | 2019-03-24 19:44 | NUR ---
HAND-OFF: Report given to MARIO Perez.
--- NOTE | 2019-03-24 19:57 | NUR ---
NURSE NOTES: Received report from MARIO Perez and MARIO Bishop. Patient is in bed, awake and alert x2. Room air with no signs of respiratory distress. Bilateral wrist restraints in progress to prevent patient from removing PICC line or simpson. Simpson intact. Right upper arm PICC line intact. Bed in lowest position with alarm on. Will continue to monitor.
[2019-03-24 20:00] VITALS: BP 128/82
[2019-03-24] MEDS: Dyna-Hex 2% Top Sol 2oz TOPIC SCH (20:00)
[2019-03-24] MEDS: Iron Sucrose 100 MG in NS 55 ML IV SCH (21:05)
--- NOTE | 2019-03-24 21:05 | NUR ---
NURSE NOTES: Called pharmacy around 9:03 to check compatibility of Iron (Venofer) IV and Cefepime IV because they were ordered to be given at the same time. Patient has a double lumen PICC line. Pharmacy said it is ok as ling as they are run through separate lines.
[2019-03-25] VITALS: BP 131/79
[2019-03-25 04:00] VITALS: BP 123/54
--- NOTE | 2019-03-25 05:30 | NUR ---
NURSE NOTES: Informed the lab that PICC line does not work for blood draw. Kori from the lab will draw the blood later. Charge Nurse Deneen made aware.
[2019-03-25] MEDS: NovoLOG Insulin Flexpen SUBQ SCH ×4 (05:34→20:43)
--- NOTE | 2019-03-25 06:25 | General Progress Note ---
Assessment/Plan Status: unchanged Assessment/Plan: (1) Hematuria (2) Anemia (3) GI bleed (4) Sepsis Plan Speech therapy evaluation noted, patient placed on pure and nectar thick diet POLST reviewed Possible anemia secondary to hematuria Conservative management anemia work up OB stool to rule out GI bleed, will consider endoscopy if positive monitor H&H, prn transfusions bowel regimen ppi fu labs add colace and miralax Subjective ROS Limited/Unobtainable: No Allergies: Coded Allergies: PENICILLINS (Verified Allergy, Unknown, 03/21/19) Objective Last 24 Hour Vital Signs Date Time Temp Pulse Resp B/P (MAP) Pulse Ox O2 Delivery O2 Flow Rate FiO2 03/25/19 04:00 97.9 73 18 123/54 (77) 95 03/25/19 00:00 97.9 97 20 131/79 (96) 99 03/24/19 21:00 Room Air 03/24/19 20:00 98.0 108 20 128/82 (97) 98 03/24/19 16:00 98.3 99 20 132/79 (96) 98 03/24/19 12:00 98.0 100 20 131/79 (96) 98 03/24/19 09:00 Room Air 03/24/19 08:00 98.6 98 19 136/82 (100) 97 Intake and Output 03/24/19 03/25/19 19:00 07:00 Intake Total 420 ml 115 ml Output Total 600 ml Balance -180 ml 115 ml Intake Oral 420 ml IV Total 115 ml Output Urine Total 600 ml Laboratory Tests 03/24/19 06:40: White Blood Count 13.8H, Red Blood Count 3.58L, Hemoglobin 9.5L, Hematocrit 31.7L, Mean Corpuscular Volume 89, Mean Corpuscular Hemoglobin 26.6L, Mean Corpuscular Hemoglobin Concent 30.0L, Red Cell Distribution Width 18.4H, Platelet Count 578H, Mean Platelet Volume 4.9L, Neutrophils (%) (Auto) , Lymphocytes (%) (Auto) , Monocytes (%) (Auto) , Eosinophils (%) (Auto) , Basophils (%) (Auto) , Differential Total Cells Counted 100, Neutrophils % ( Manual) 81H, Lymphocytes % (Manual) 12L, Monocytes % (Manual) 6, Eosinophils % ( Manual) 1, Basophils % (Manual) 0, Band Neutrophils 0, Nucleated Red Blood Cells 1, Platelet Estimate Adequate, Platelet Morphology Normal, Hypochromasia 2 +, Anisocytosis 2+, Sodium Level 144, Potassium Level 4.1, Chloride Level 107, Carbon Dioxide Level 29, Anion Gap 8, Blood Urea Nitrogen 9, Creatinine 0.7, Estimat Glomerular Filtration Rate > 60, Glucose Level 89, Calcium Level 9.5 Height (Feet): 5 Height (Inches): 8.00 Weight (Pounds): 180 General Appearance: no apparent distress EENT: normal ENT inspection Neck: supple Cardiovascular: normal rate Respiratory/Chest: decreased breath sounds Abdomen: normal bowel sounds, non tender, soft Extremities: non-tender Bronson Baron MD Mar 25, 2019 06:25
[2019-03-25 07:33] LABS: HEMATOCRIT 32.5 % (42.0-52.0); HEMOGLOBIN 9.7 G/DL (14.2-18.0); MEAN CORPUSCULAR VOLUME 89 FL (80-99); PLATELET COUNT 614 K/UL (150-450); RED BLOOD COUNT 3.64 M/UL (4.70-6.10); RED CELL DISTRIBUTION WIDTH 18.1 % (11.6-14.8); WHITE BLOOD COUNT 13.2 K/UL (4.8-10.8)
--- NOTE | 2019-03-25 07:34 | NUR ---
HAND-OFF: Report given to MARIO Sheth.
[2019-03-25 07:54] VITALS: BP 146/60
--- NOTE | 2019-03-25 08:15 | NUR ---
NURSE NOTES: Pt awake alert, no distress. no sob. bed in lowest position, locked. call light within reach. will monitor. picc is patent on one of the lumen but red lumen not patent, picc area is swollen (right upper arm is swollen ), paged dr Henriquez via [employer] md exchange, awaiting call back
[2019-03-25 08:32] LABS: ANION GAP 10 mmol/L (5-15); BLOOD UREA NITROGEN 8 mg/dL (7-18); CALCIUM 9.6 MG/DL (8.5-10.1); CARBON DIOXIDE 29 MMOL/L (21-32); CHLORIDE 106 MMOL/L (98-107); CREATININE 0.6 MG/DL (0.55-1.30); POTASSIUM 3.8 MMOL/L (3.5-5.1); SODIUM 145 MMOL/L (136-145)
--- NOTE | 2019-03-25 08:50 | NUR ---
NURSE NOTES: picc removed from right arm, pt tolerated well, no bleeding, elevated arm slightly, 20cm intact picc removed. received order also from dr Gifford to reinsert picc on wednesday03/27/2019
[2019-03-25] MEDS: Docusate 100mg/10ml Liq ORAL SCH ×2 (09:00→17:40)
[2019-03-25] MEDS ORDERED: Lidocaine 1% Plain 30 ml INJ SCH (09:00)
[2019-03-25] MEDS ORDERED: Docusate 100mg cap ORAL SCH (09:00)
[2019-03-25] MEDS: Lidocaine 1% Plain 30 ml INJ SCH (09:15)
[2019-03-25] MEDS: Heparin1,000 units/500ml Premix(Conc:2 units/ml) IV SCH (09:30)
[2019-03-25] MEDS: Cefepime HCl 1 GM in D5W 55 ML IVPB SCH ×2 (09:50→21:26)
--- NOTE | 2019-03-25 10:22 | NUR ---
RD ASSESSMENT & RECOMMENDATIONS SEE CARE ACTIVITY FOR COMPLETE ASSESSMENT DAILY ESTIMATED NEEDS: Needs based on Cancer, 67.8kg 25-30 kcals/kg total kcals 1-1.5 g protein/kg 68-102 g total protein 25-30 mL/kg total fluid mLs NUTRITION DIAGNOSIS: Swallowing difficulty R/T dysphagia, h/o malignant brain tumor, s/p cerebellum craniotomy as evidenced by pt on liquify pureed, NTL per ASSISTANT PROFESSOR OF ECONOMICS rec. CURRENT DIET:CCHO MED/ liquify pureed, NTL PO DIET RECOMMENDATIONS: CCHO MED, texture per ASSISTANT PROFESSOR OF ECONOMICS ADDITIONAL RECOMMENDATIONS: * Calibrated bedscale wt for accurate CBW * Glucerna 1 tetra dipesh TID w/ liquify pureed texture * MVI x 1 as supplement * Encourage pt to consume HS snack to prevent hypoglycemia in the AM
--- NOTE | 2019-03-25 11:10 | Hematology/Onc Progress Note ---
Assessment/Plan Assessment/Plan LATE ENTRY 03/24/2019 #. History of Lung Ca --> CEA level 9.1 --> CT Abd results reviewed # Anemia of chronic disease due to underlying chronic medical issues, multifactorial, malignancy --> Anemia workup has been reviewed, Ferritin 262, Iron 6, TIBC 132, Iron sat 5% . --> No evidence of hemolysis is noted, peripheral smear has been reviewed. --> Hgb goal >7. Transfuse prn. HGB 9.5 --> Epogen or iron at this time is not particularly indicated --> Medications have been reviewed --> low threshold for gi evaluation in case has occult + --> CEA level 9.1 # Anemia due to Hematuria --> per gi recs --> conservative management --> may consider gu as per pcp # Leukocytosis/elevated white blood cell count, unspecified likely related to underlying stress reaction, smoking v more likely infection --> have reviewed peripheral smear and bandemia/neutrophilia noted --> on cefepime per id --> monitor for resolution --> WBC 13.8 # Hematuria --> currently improved # Sepsis POA --> consider abx needed The timing of this note does not necessarily reflect the time of the patient was seen. GREATLY APPRECIATE CONSULTATION. Subjective Allergies: Coded Allergies: PENICILLINS (Verified Allergy, Unknown, 03/21/19) Subjective 03/24: pt confused, has restraints on. Objective Objective Current Medications Medications (Trade) Dose Ordered Sig/Stephani Route PRN Reason Start Time Stop Time Status Last Admin Dose Admin Acetaminophen (Tylenol) 500 mg Q4H PRN ORAL Mild Pain/Temp > 100.5 03/22/19 18:27 04/21/19 18:26 Cefepime HCl 1 gm/ Dextrose 55 ml @ 110 mls/hr EVERY 12 HOURS IVPB 03/22/19 21:00 03/29/19 08:59 03/25/19 09:50 Chlorhexidine Gluconate (Yesi-Hex 2%) 1 applic DAILY@1999 TOPIC 03/22/19 20:00 04/20/19 19:59 03/23/19 21:29 Chlorhexidine Gluconate (Yesi-Hex 2%) 1 applic DAILY@1999 TOPIC 03/27/19 20:00 04/26/19 19:59 Dextrose (Dextrose 50%) 25 ml Q30M PRN IV Hypoglycemia 7/4/19 13:00 04/22/19 12:59 Dextrose (Dextrose 50%) 50 ml Q30M PRN IV Hypoglycemia 03/23/19 13:04 04/22/19 13:03 Docusate Sodium (Colace) 100 mg TWICE A DAY ORAL 03/25/19 09:00 04/24/19 08:59 03/25/19 09:00 Heparin Sodium/ Sodium Chloride (Heparin 1000 units/500ml Premix) 1,000 unit ONCE IV 03/25/19 09:30 03/27/19 23:59 Insulin Aspart (NovoLOG) BEFORE MEALS AND HS SUBQ 03/23/19 16:30 04/22/19 16:29 Iopamidol (Isovue-300 100ml) 100 ml NOW PRN INJ Radiology Procedure 03/23/19 14:00 04/22/19 13:59 Iron Sucrose 100 mg/Sodium Chloride 60 ml @ 240 mls/hr BEDTIME IV 03/23/19 21:00 03/27/19 21:14 03/24/19 21:05 Lidocaine HCl (Xylocaine 1% 30ml) 30 ml ONCE INJ 03/25/19 09:15 03/27/19 20:00 Polyethylene Glycol (Miralax) 17 gm BEDTIME ORAL 03/25/19 21:00 04/24/19 20:59 Last 24 Hour Vital Signs Date Time Temp Pulse Resp B/P (MAP) Pulse Ox O2 Delivery O2 Flow Rate FiO2 03/25/19 07:54 97.9 78 18 146/60 (88) 95 03/25/19 04:00 97.9 73 18 123/54 (77) 95 03/25/19 00:00 97.9 97 20 131/79 (96) 99 03/24/19 21:00 Room Air 03/24/19 20:00 98.0 108 20 128/82 (97) 98 03/24/19 16:00 98.3 99 20 132/79 (96) 98 03/24/19 12:00 98.0 100 20 131/79 (96) 98 03/24/19 09:00 Room Air 03/24/19 08:00 98.6 98 19 136/82 (100) 97 03/24/19 04:00 98.7 92 18 119/76 (90) 95 03/24/19 00:00 98.8 100 20 132/87 (102) 95 03/23/19 21:02 Room Air 03/23/19 20:00 98.6 94 20 116/78 (91) 95 03/23/19 16:00 97.7 88 20 124/86 (99) 97 03/23/19 11:56 98.6 94 20 119/81 (94) 96 Intake and Output 03/24/19 03/25/19 18:59 06:59 Intake Total 420 ml 235 ml Output Total 600 ml Balance -180 ml 235 ml Intake Oral 420 ml 120 ml IV Total 115 ml Output Urine Total 600 ml Labs Test 03/22/19 17:13 03/23/19 05:00 03/24/19 06:40 03/25/19 05:41 Haptoglobin 439 mg/dL (34-200) Fibrinogen 688 mg/dL (200-400) Carcinoembryonic Antigen 9.1 ng/mL (0.0-4.7) Prostate Specific Antigen 3.32 ng/mL (0.13-4.0) Hepatitis A IgM Antibody Negative (Negative) Hepatitis B Surface Antigen Negative (Negative) Hepatitis B Core IgM Antibody Negative (Negative) Hepatitis C Antibody <0.1 s/co ratio HIV (1&2) Antibody Rapid Negative (NEGATIVE) White Blood Count 13.8 K/UL (4.8-10.8) 13.8 K/UL (4.8-10.8) 13.2 K/UL (4.8-10.8) Red Blood Count 3.32 M/UL (4.70-6.10) 3.58 M/UL (4.70-6.10) 3.64 M/UL (4.70-6.10) Hemoglobin 8.9 G/DL (14.2-18.0) 9.5 G/DL (14.2-18.0) 9.7 G/DL (14.2-18.0) Hematocrit 29.4 % (42.0-52.0) 31.7 % (42.0-52.0) 32.5 % (42.0-52.0) Mean Corpuscular Volume 88 FL (80-99) 89 FL (80-99) 89 FL (80-99) Mean Corpuscular Hemoglobin 26.9 PG (27.0-31.0) 26.6 PG (27.0-31.0) 26.6 PG (27.0-31.0) Mean Corpuscular Hemoglobin Concent 30.4 G/DL (32.0-36.0) 30.0 G/DL (32.0-36.0) 29.8 G/DL (32.0-36.0) Red Cell Distribution Width 17.8 % (11.6-14.8) 18.4 % (11.6-14.8) 18.1 % (11.6-14.8) Platelet Count 584 K/UL (150-450) 578 K/UL (150-450) 614 K/UL (150-450) Mean Platelet Volume 4.7 FL (6.5-10.1) 4.9 FL (6.5-10.1) 4.8 FL (6.5-10.1) Neutrophils (%) (Auto) % (45.0-75.0) % (45.0-75.0) % (45.0-75.0) Lymphocytes (%) (Auto) % (20.0-45.0) % (20.0-45.0) % (20.0-45.0) Monocytes (%) (Auto) % (1.0-10.0) % (1.0-10.0) % (1.0-10.0) Eosinophils (%) (Auto) % (0.0-3.0) % (0.0-3.0) % (0.0-3.0) Basophils (%) (Auto) % (0.0-2.0) % (0.0-2.0) % (0.0-2.0) Differential Total Cells Counted 100 100 100 Neutrophils % (Manual) 88 % (45-75) 81 % (45-75) 90 % (45-75) Lymphocytes % (Manual) 5 % (20-45) 12 % (20-45) 5 % (20-45) Monocytes % (Manual) 7 % (1-10) 6 % (1-10) 5 % (1-10) Eosinophils % (Manual) 0 % (0-3) 1 % (0-3) 0 % (0-3) Basophils % (Manual) 0 % (0-2) 0 % (0-2) 0 % (0-2) Band Neutrophils 0 % (0-8) 0 % (0-8) 0 % (0-8) Platelet Estimate Increased Adequate Increased Platelet Morphology Normal Normal Normal Hypochromasia 2+ 2+ 1+ Anisocytosis 1+ 2+ 1+ Reticulocyte Count 2.0 % (0.5-2.0) Prothrombin Time 11.5 SEC (9.30-11.50) Prothromb Time International Ratio 1.1 (0.9-1.1) Activated Partial Thromboplast Time 36 SEC (23-33) Sodium Level 147 MMOL/L (136-145) 144 MMOL/L (136-145) 145 MMOL/L (136-145) Potassium Level 4.0 MMOL/L (3.5-5.1) 4.1 MMOL/L (3.5-5.1) 3.8 MMOL/L (3.5-5.1) Chloride Level 109 MMOL/L (98-107) 107 MMOL/L (98-107) 106 MMOL/L (98-107) Carbon Dioxide Level 29 MMOL/L (21-32) 29 MMOL/L (21-32) 29 MMOL/L (21-32) Anion Gap 9 mmol/L (5-15) 8 mmol/L (5-15) 10 mmol/L (5-15) Blood Urea Nitrogen 9 mg/dL (7-18) 9 mg/dL (7-18) 8 mg/dL (7-18) Creatinine 0.7 MG/DL (0.55-1.30) 0.7 MG/DL (0.55-1.30) 0.6 MG/DL (0.55-1.30) Estimat Glomerular Filtration Rate > 60 mL/min (>60) > 60 mL/min (>60) > 60 mL/min (>60) Glucose Level 98 MG/DL (74-106) 89 MG/DL (74-106) 62 MG/DL (74-106) Calcium Level 9.3 MG/DL (8.5-10.1) 9.5 MG/DL (8.5-10.1) 9.6 MG/DL (8.5-10.1) Iron Level 6 ug/dL (50-175) Total Iron Binding Capacity 132 ug/dL (250-450) Percent Iron Saturation 5 % (15-50) Unsaturated Iron Binding 126 ug/dL (112-346) Ferritin 262 NG/ML (8-388) Total Bilirubin 0.6 MG/DL (0.2-1.0) Aspartate Amino Transf (AST/SGOT) 11 U/L (15-37) Alanine Aminotransferase (ALT/SGPT) 14 U/L (12-78) Alkaline Phosphatase 82 U/L (46-116) Total Protein 6.5 G/DL (6.4-8.2) Albumin 2.1 G/DL (3.4-5.0) Globulin 4.4 g/dL Albumin/Globulin Ratio 0.5 (1.0-2.7) Vitamin B12 Level 1124 PG/ML (193-986) Folate 10.1 NG/ML (8.6-58.9) Thyroid Stimulating Hormone (TSH) 5.090 uiU/mL (0.358-3.740) Free Thyroxine 1.17 NG/DL (0.76-1.46) Nucleated Red Blood Cells 1 /100 WBC Height (Feet): 5 Height (Inches): 8.00 Weight (Pounds): 180 Objective General Appearance: well appearing, no apparent distress, confused Head: normocephalic EENT: PERRL/EOMI, normal ENT inspection Neck: supple Respiratory: normal breath sounds, no respiratory distress CV: normal rate GI: normal inspection, non tender, soft, normal bowel sounds, non-distended : deferred Musculoskeletal: normal inspection, back normal Neurologic: alert, responsive Lymphatic: normal inspection, no adenopathy Carolina Monroe NP Mar 25, 2019 11:10
--- NOTE | 2019-03-25 11:50 | General Progress Note ---
Assessment/Plan Status: doing well, stable, unchanged Assessment/Plan: Assessment/Plan Status: unchanged Assessment/Plan: 68 year old male with PMH of malignant brain tumor, anemia, NIDDM, COPD, BPH, history of UTI, hypertension admitted for severe anemia, sepsis, GI bleed, lung cancer, UTI. #Sepsis 2/2 pseudomonas UTI -cont cefepime per ID -ID consult appreciated -CTM #Severe anemia likely 2/2 GI source and IDRIS -Gi Consult appreciated, FOBT pending. -Venofer started -Hematology consult aprpeciated -Hb acceptable s/p transfusion - #Diabetes mellitus -ISS -carb controlled feeding -can add lantus if needed -FSG QAC and hs #Hypertension -Will hold antihypertensives due to sepsis -BP currently acceptable -can restart home meds -Norvasc 10mg and lisinopril 20mg if needed #BPH -cont flomax #Metastatic lung cancer Code: DNAR Subjective ROS Limited/Unobtainable: Yes Allergies: Coded Allergies: PENICILLINS (Verified Allergy, Unknown, 03/21/19) Objective Last 24 Hour Vital Signs Date Time Temp Pulse Resp B/P (MAP) Pulse Ox O2 Delivery O2 Flow Rate FiO2 03/25/19 07:54 97.9 78 18 146/60 (88) 95 03/25/19 04:00 97.9 73 18 123/54 (77) 95 03/25/19 00:00 97.9 97 20 131/79 (96) 99 03/24/19 21:00 Room Air 03/24/19 20:00 98.0 108 20 128/82 (97) 98 03/24/19 16:00 98.3 99 20 132/79 (96) 98 03/24/19 12:00 98.0 100 20 131/79 (96) 98 Intake and Output 03/24/19 03/25/19 18:59 06:59 Intake Total 420 ml 235 ml Output Total 600 ml Balance -180 ml 235 ml Intake Oral 420 ml 120 ml IV Total 115 ml Output Urine Total 600 ml Laboratory Tests 03/25/19 05:41: White Blood Count 13.2H, Red Blood Count 3.64L, Hemoglobin 9.7L, Hematocrit 32.5L, Mean Corpuscular Volume 89, Mean Corpuscular Hemoglobin 26.6L, Mean Corpuscular Hemoglobin Concent 29.8L, Red Cell Distribution Width 18.1H, Platelet Count 614H, Mean Platelet Volume 4.8L, Neutrophils (%) (Auto) , Lymphocytes (%) (Auto) , Monocytes (%) (Auto) , Eosinophils (%) (Auto) , Basophils (%) (Auto) , Differential Total Cells Counted 100, Neutrophils % ( Manual) 90H, Lymphocytes % (Manual) 5L, Monocytes % (Manual) 5, Eosinophils % ( Manual) 0, Basophils % (Manual) 0, Band Neutrophils 0, Platelet Estimate IncreasedH, Platelet Morphology Normal, Hypochromasia 1+, Anisocytosis 1+, Sodium Level 145, Potassium Level 3.8, Chloride Level 106, Carbon Dioxide Level 29, Anion Gap 10, Blood Urea Nitrogen 8, Creatinine 0.6, Estimat Glomerular Filtration Rate > 60, Glucose Level 62L, Calcium Level 9.6 Height (Feet): 5 Height (Inches): 8.00 Weight (Pounds): 180 General Appearance: WD/WN, no apparent distress EENT: PERRL/EOMI Neck: non-tender Cardiovascular: regular rhythm Abdomen: normal bowel sounds Extremities: normal range of motion 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
[2019-03-25 12:00] VITALS: BP 132/60
--- NOTE | 2019-03-25 14:39 | Infectious Diseases Prog Note ---
Assessment/Plan Assessment/Plan IMPRESSION: 1. Sepsis with leukocytosis, tachycardia, lactic acidosis. 2. Pseudomonas UTI. 3. Right-sided pleural effusion or atelectasis, may have underlying pneumonia, . 4. Diabetes mellitus. 5. Hypertension. 6. Severe anemia. 7. Metastatic lung cancer RECOMMENDATION: Continue with cefepime Subjective ROS Limited/Unobtainable: Yes Neurologic: Reports: confusion, other - on restraint Allergies: Coded Allergies: PENICILLINS (Verified Allergy, Unknown, 03/21/19) Objective Vital Signs Last 24 Hour Vital Signs Date Time Temp Pulse Resp B/P (MAP) Pulse Ox O2 Delivery O2 Flow Rate FiO2 03/25/19 09:00 Room Air 03/25/19 07:54 97.9 78 18 146/60 (88) 95 03/25/19 04:00 97.9 73 18 123/54 (77) 95 03/25/19 00:00 97.9 97 20 131/79 (96) 99 03/24/19 21:00 Room Air 03/24/19 20:00 98.0 108 20 128/82 (97) 98 03/24/19 16:00 98.3 99 20 132/79 (96) 98 Height (Feet): 5 Height (Inches): 8.00 Weight (Pounds): 180 General Appearance: no acute distress HEENT: mucous membranes moist Respiratory/Chest: lungs clear Cardiovascular: normal rate Abdomen: soft, non tender Extremities: no edema Neurologic/Psychiatric: other - sleeping Laboratory Tests Test 03/25/19 05:41 White Blood Count 13.2 K/UL (4.8-10.8) H Red Blood Count 3.64 M/UL (4.70-6.10) L Hemoglobin 9.7 G/DL (14.2-18.0) L Hematocrit 32.5 % (42.0-52.0) L Mean Corpuscular Volume 89 FL (80-99) Mean Corpuscular Hemoglobin 26.6 PG (27.0-31.0) L Mean Corpuscular Hemoglobin Concent 29.8 G/DL (32.0-36.0) L Red Cell Distribution Width 18.1 % (11.6-14.8) H Platelet Count 614 K/UL (150-450) H Mean Platelet Volume 4.8 FL (6.5-10.1) L Neutrophils (%) (Auto) % (45.0-75.0) Lymphocytes (%) (Auto) % (20.0-45.0) Monocytes (%) (Auto) % (1.0-10.0) Eosinophils (%) (Auto) % (0.0-3.0) Basophils (%) (Auto) % (0.0-2.0) Differential Total Cells Counted 100 Neutrophils % (Manual) 90 % (45-75) H Lymphocytes % (Manual) 5 % (20-45) L Monocytes % (Manual) 5 % (1-10) Eosinophils % (Manual) 0 % (0-3) Basophils % (Manual) 0 % (0-2) Band Neutrophils 0 % (0-8) Platelet Estimate Increased H Platelet Morphology Normal Hypochromasia 1+ Anisocytosis 1+ Sodium Level 145 MMOL/L (136-145) Potassium Level 3.8 MMOL/L (3.5-5.1) Chloride Level 106 MMOL/L (98-107) Carbon Dioxide Level 29 MMOL/L (21-32) Anion Gap 10 mmol/L (5-15) Blood Urea Nitrogen 8 mg/dL (7-18) Creatinine 0.6 MG/DL (0.55-1.30) Estimat Glomerular Filtration Rate > 60 mL/min (>60) Glucose Level 62 MG/DL (74-106) L Calcium Level 9.6 MG/DL (8.5-10.1) Current Medications Medications (Trade) Dose Ordered Sig/Stephani Route PRN Reason Start Time Stop Time Status Last Admin Dose Admin Acetaminophen (Tylenol) 500 mg Q4H PRN ORAL Mild Pain/Temp > 100.5 03/22/19 18:27 04/21/19 18:26 Cefepime HCl 1 gm/ Dextrose 55 ml @ 110 mls/hr EVERY 12 HOURS IVPB 03/22/19 21:00 03/29/19 08:59 03/25/19 09:50 Chlorhexidine Gluconate (Yesi-Hex 2%) 1 applic DAILY@1999 TOPIC 03/22/19 20:00 04/20/19 19:59 03/23/19 21:29 Chlorhexidine Gluconate (Yesi-Hex 2%) 1 applic DAILY@1999 TOPIC 03/27/19 20:00 04/26/19 19:59 Dextrose (Dextrose 50%) 25 ml Q30M PRN IV Hypoglycemia 03/23/19 13:00 04/22/19 12:59 Dextrose (Dextrose 50%) 50 ml Q30M PRN IV Hypoglycemia 03/23/19 13:04 04/22/19 13:03 Docusate Sodium (Colace) 100 mg TWICE A DAY ORAL 03/25/19 09:00 04/24/19 08:59 03/25/19 09:00 Heparin Sodium/ Sodium Chloride (Heparin 1000 units/500ml Premix) 1,000 unit ONCE IV 03/25/19 09:30 03/27/19 23:59 Insulin Aspart (NovoLOG) BEFORE MEALS AND HS SUBQ 03/23/19 16:30 04/22/19 16:29 Iopamidol (Isovue-300 100ml) 100 ml NOW PRN INJ Radiology Procedure 03/23/19 14:00 04/22/19 13:59 Iron Sucrose 100 mg/Sodium Chloride 60 ml @ 240 mls/hr BEDTIME IV 03/23/19 21:00 03/27/19 21:14 03/24/19 21:05 Lidocaine HCl (Xylocaine 1% 30ml) 30 ml ONCE INJ 03/25/19 09:15 03/27/19 20:00 Polyethylene Glycol (Miralax) 17 gm BEDTIME ORAL 03/25/19 21:00 04/24/19 20:59 Juan Pablo Beaulieu MD Mar 25, 2019 14:39
[2019-03-25 15:51] VITALS: BP 130/85
--- NOTE | 2019-03-25 18:21 | NUR ---
NURSE NOTES: rn asked if ok for duplex ble ro dvt, okayed
--- NOTE | 2019-03-25 19:01 | NUR ---
HAND-OFF: Report given to MAYNOR MARTIN.
--- NOTE | 2019-03-25 19:27 | NUR ---
NURSE NOTES: Received patient awake,confused,pulled out his IV access, relative at bedside.
--- NOTE | 2019-03-25 19:34 | Diagnostic Imaging Report ---
EXAM: US Duplex Bilateral Upper Extremity Veins CLINICAL HISTORY: SWELL TECHNIQUE: Real-time duplex ultrasound scan of the bilateral upper extremity veins integrating B-mode two-dimensional vascular structure, Doppler spectral analysis, color flow Doppler imaging and compression. COMPARISON: No relevant prior studies available. FINDINGS: Right deep veins: DVT in the right internal jugular, subclavian, axillary, or brachial veins. Right superficial veins: Unremarkable. No thrombus in the visualized right basilic and cephalic veins. Left deep veins: Unremarkable. No DVT in the left internal jugular, subclavian, axillary, or brachial veins. The veins demonstrate normal color flow, are normally compressible, with normal phasic flow and/or augmentation response. Left superficial veins: Unremarkable. No thrombus in the visualized left basilic and cephalic veins. Soft tissues: Soft tissue edema. IMPRESSION: Positive for DVT in the right upper extremity. No DVT in the left upper extremity <MYCVCSECTION> Critical Value Communications 03/25/19 19:51 Call Doctor Regarding Other, called MARIO Caceres on 4E on 03/25 19:51 (-07:00)
[2019-03-25 20:00] VITALS: BP 121/78
[2019-03-25] MEDS: Dyna-Hex 2% Top Sol 2oz TOPIC SCH (20:00)
--- NOTE | 2019-03-25 20:04 | Hematology/Onc Progress Note ---
Assessment/Plan Assessment/Plan ASSESSMENT AND RECC'S #. History of Lung Ca --> CEA level 9.1 --> CT Abd results reviewed # Anemia of chronic disease due to underlying chronic medical issues, multifactorial, malignancy --> Anemia workup has been reviewed, Ferritin 262, Iron 6, TIBC 132, Iron sat 5% . --> No evidence of hemolysis is noted, peripheral smear has been reviewed. --> Hgb goal >7. Transfuse prn. HGB 9.5--> 9.7 --> Epogen or iron at this time is not particularly indicated --> Medications have been reviewed --> low threshold for gi evaluation in case has occult + --> CEA level 9.1 # Anemia due to Hematuria --> per gi recs --> conservative management --> may consider gu as per pcp # Leukocytosis/elevated white blood cell count, unspecified likely related to underlying stress reaction, smoking v more likely infection --> have reviewed peripheral smear and bandemia/neutrophilia noted --> on cefepime per id --> monitor for resolution --> WBC 13.8--> 13.2 # Hematuria --> currently improved # Sepsis POA --> consider abx needed The timing of this note does not necessarily reflect the time of the patient was seen. GREATLY APPRECIATE CONSULTATION. Subjective Allergies: Coded Allergies: PENICILLINS (Verified Allergy, Unknown, 03/21/19) Subjective 03/24: pt confused, has restraints on. 03/25:PICC line 1 port clogged. Objective Objective Current Medications Medications (Trade) Dose Ordered Sig/Stephani Route PRN Reason Start Time Stop Time Status Last Admin Dose Admin Acetaminophen (Tylenol) 500 mg Q4H PRN ORAL Mild Pain/Temp > 100.5 03/22/19 18:27 04/21/19 18:26 Bisacodyl (Dulcolax) 10 mg DAILYPRN PRN RECTAL Constipation 03/25/19 19:15 04/24/19 19:14 Bisacodyl (Dulcolax) 10 mg ONCE RECTAL 03/25/19 19:45 03/25/19 20:45 Cefepime HCl 1 gm/ Dextrose 55 ml @ 110 mls/hr EVERY 12 HOURS IVPB 03/22/19 21:00 03/29/19 08:59 03/25/19 09:50 Chlorhexidine Gluconate (Yesi-Hex 2%) 1 applic DAILY@1999 TOPIC 03/22/19 20:00 04/20/19 19:59 03/23/19 21:29 Chlorhexidine Gluconate (Yesi-Hex 2%) 1 applic DAILY@1999 TOPIC 03/27/19 20:00 04/26/19 19:59 Dextrose (Dextrose 50%) 25 ml Q30M PRN IV Hypoglycemia 03/23/19 13:00 04/22/19 12:59 Dextrose (Dextrose 50%) 50 ml Q30M PRN IV Hypoglycemia 03/23/19 13:04 04/22/19 13:03 Docusate Sodium (Colace) 100 mg TWICE A DAY ORAL 03/25/19 09:00 04/24/19 08:59 03/25/19 17:40 Heparin Sodium/ Sodium Chloride (Heparin 1000 units/500ml Premix) 1,000 unit ONCE IV 03/25/19 09:30 03/27/19 23:59 Insulin Aspart (NovoLOG) BEFORE MEALS AND HS SUBQ 03/23/19 16:30 04/22/19 16:29 Iopamidol (Isovue-300 100ml) 100 ml NOW PRN INJ Radiology Procedure 03/23/19 14:00 04/22/19 13:59 Iron Sucrose 100 mg/Sodium Chloride 60 ml @ 240 mls/hr BEDTIME IV 03/23/19 21:00 03/27/19 21:14 03/24/19 21:05 Lidocaine HCl (Xylocaine 1% 30ml) 30 ml ONCE INJ 03/25/19 09:15 03/27/19 20:00 Polyethylene Glycol (Miralax) 17 gm BEDTIME ORAL 03/25/19 21:00 04/24/19 20:59 Last 24 Hour Vital Signs Date Time Temp Pulse Resp B/P (MAP) Pulse Ox O2 Delivery O2 Flow Rate FiO2 03/25/19 15:51 97.9 62 18 130/85 (100) 95 03/25/19 12:00 97.9 78 18 132/60 (84) 95 03/25/19 09:00 Room Air 03/25/19 07:54 97.9 78 18 146/60 (88) 95 03/25/19 04:00 97.9 73 18 123/54 (77) 95 03/25/19 00:00 97.9 97 20 131/79 (96) 99 03/24/19 21:00 Room Air 03/24/19 20:00 98.0 108 20 128/82 (97) 98 03/24/19 16:00 98.3 99 20 132/79 (96) 98 03/24/19 12:00 98.0 100 20 131/79 (96) 98 03/24/19 09:00 Room Air 03/24/19 08:00 98.6 98 19 136/82 (100) 97 03/24/19 04:00 98.7 92 18 119/76 (90) 95 03/24/19 00:00 98.8 100 20 132/87 (102) 95 03/23/19 21:02 Room Air Intake and Output 03/24/19 03/25/19 19:00 07:00 Intake Total 420 ml 235 ml Output Total 600 ml Balance -180 ml 235 ml Intake Oral 420 ml 120 ml IV Total 115 ml Output Urine Total 600 ml Labs Test 03/23/19 05:00 03/24/19 06:40 03/25/19 05:41 White Blood Count 13.8 K/UL (4.8-10.8) 13.8 K/UL (4.8-10.8) 13.2 K/UL (4.8-10.8) Red Blood Count 3.32 M/UL (4.70-6.10) 3.58 M/UL (4.70-6.10) 3.64 M/UL (4.70-6.10) Hemoglobin 8.9 G/DL (14.2-18.0) 9.5 G/DL (14.2-18.0) 9.7 G/DL (14.2-18.0) Hematocrit 29.4 % (42.0-52.0) 31.7 % (42.0-52.0) 32.5 % (42.0-52.0) Mean Corpuscular Volume 88 FL (80-99) 89 FL (80-99) 89 FL (80-99) Mean Corpuscular Hemoglobin 26.9 PG (27.0-31.0) 26.6 PG (27.0-31.0) 26.6 PG (27.0-31.0) Mean Corpuscular Hemoglobin Concent 30.4 G/DL (32.0-36.0) 30.0 G/DL (32.0-36.0) 29.8 G/DL (32.0-36.0) Red Cell Distribution Width 17.8 % (11.6-14.8) 18.4 % (11.6-14.8) 18.1 % (11.6-14.8) Platelet Count 584 K/UL (150-450) 578 K/UL (150-450) 614 K/UL (150-450) Mean Platelet Volume 4.7 FL (6.5-10.1) 4.9 FL (6.5-10.1) 4.8 FL (6.5-10.1) Neutrophils (%) (Auto) % (45.0-75.0) % (45.0-75.0) % (45.0-75.0) Lymphocytes (%) (Auto) % (20.0-45.0) % (20.0-45.0) % (20.0-45.0) Monocytes (%) (Auto) % (1.0-10.0) % (1.0-10.0) % (1.0-10.0) Eosinophils (%) (Auto) % (0.0-3.0) % (0.0-3.0) % (0.0-3.0) Basophils (%) (Auto) % (0.0-2.0) % (0.0-2.0) % (0.0-2.0) Differential Total Cells Counted 100 100 100 Neutrophils % (Manual) 88 % (45-75) 81 % (45-75) 90 % (45-75) Lymphocytes % (Manual) 5 % (20-45) 12 % (20-45) 5 % (20-45) Monocytes % (Manual) 7 % (1-10) 6 % (1-10) 5 % (1-10) Eosinophils % (Manual) 0 % (0-3) 1 % (0-3) 0 % (0-3) Basophils % (Manual) 0 % (0-2) 0 % (0-2) 0 % (0-2) Band Neutrophils 0 % (0-8) 0 % (0-8) 0 % (0-8) Platelet Estimate Increased Adequate Increased Platelet Morphology Normal Normal Normal Hypochromasia 2+ 2+ 1+ Anisocytosis 1+ 2+ 1+ Reticulocyte Count 2.0 % (0.5-2.0) Prothrombin Time 11.5 SEC (9.30-11.50) Prothromb Time International Ratio 1.1 (0.9-1.1) Activated Partial Thromboplast Time 36 SEC (23-33) Sodium Level 147 MMOL/L (136-145) 144 MMOL/L (136-145) 145 MMOL/L (136-145) Potassium Level 4.0 MMOL/L (3.5-5.1) 4.1 MMOL/L (3.5-5.1) 3.8 MMOL/L (3.5-5.1) Chloride Level 109 MMOL/L (98-107) 107 MMOL/L (98-107) 106 MMOL/L (98-107) Carbon Dioxide Level 29 MMOL/L (21-32) 29 MMOL/L (21-32) 29 MMOL/L (21-32) Anion Gap 9 mmol/L (5-15) 8 mmol/L (5-15) 10 mmol/L (5-15) Blood Urea Nitrogen 9 mg/dL (7-18) 9 mg/dL (7-18) 8 mg/dL (7-18) Creatinine 0.7 MG/DL (0.55-1.30) 0.7 MG/DL (0.55-1.30) 0.6 MG/DL (0.55-1.30) Estimat Glomerular Filtration Rate > 60 mL/min (>60) > 60 mL/min (>60) > 60 mL/min (>60) Glucose Level 98 MG/DL (74-106) 89 MG/DL (74-106) 62 MG/DL (74-106) Calcium Level 9.3 MG/DL (8.5-10.1) 9.5 MG/DL (8.5-10.1) 9.6 MG/DL (8.5-10.1) Iron Level 6 ug/dL (50-175) Total Iron Binding Capacity 132 ug/dL (250-450) Percent Iron Saturation 5 % (15-50) Unsaturated Iron Binding 126 ug/dL (112-346) Ferritin 262 NG/ML (8-388) Total Bilirubin 0.6 MG/DL (0.2-1.0) Aspartate Amino Transf (AST/SGOT) 11 U/L (15-37) Alanine Aminotransferase (ALT/SGPT) 14 U/L (12-78) Alkaline Phosphatase 82 U/L (46-116) Total Protein 6.5 G/DL (6.4-8.2) Albumin 2.1 G/DL (3.4-5.0) Globulin 4.4 g/dL Albumin/Globulin Ratio 0.5 (1.0-2.7) Vitamin B12 Level 1124 PG/ML (193-986) Folate 10.1 NG/ML (8.6-58.9) Thyroid Stimulating Hormone (TSH) 5.090 uiU/mL (0.358-3.740) Free Thyroxine 1.17 NG/DL (0.76-1.46) Nucleated Red Blood Cells 1 /100 WBC Height (Feet): 5 Height (Inches): 8.00 Weight (Pounds): 180 Objective General Appearance: well appearing, no apparent distress, confused Head: normocephalic EENT: PERRL/EOMI, normal ENT inspection Neck: supple Respiratory: normal breath sounds, no respiratory distress CV: normal rate GI: normal inspection, non tender, soft, normal bowel sounds, non-distended : deferred Musculoskeletal: normal inspection, back normal Neurologic: alert, responsive Lymphatic: normal inspection, no adenopathy Carolina Monroe NP Mar 25, 2019 20:04
[2019-03-25] MEDS: Miralax 17gm pkt ORAL SCH (20:41)
[2019-03-25] MEDS: Iron Sucrose 100 MG in NS 55 ML IV SCH (20:41)
[2019-03-25 21:07] LABS: HEMATOCRIT 28.4 % (42.0-52.0); HEMOGLOBIN 8.8 G/DL (14.2-18.0); MEAN CORPUSCULAR VOLUME 85 FL (80-99); PLATELET COUNT 584 K/UL (150-450); RED BLOOD COUNT 3.33 M/UL (4.70-6.10); RED CELL DISTRIBUTION WIDTH 17.4 % (11.6-14.8); WHITE BLOOD COUNT 12.8 K/UL (4.8-10.8)
[2019-03-25 21:11] LABS: NEUTROPHILS % (AUTO) 86.5 % (45.0-75.0)
[2019-03-25 21:12] LABS: BASOPHILS % (AUTO) 0.6 % (0.0-2.0); EOSINOPHILS % (AUTO) 0.3 % (0.0-3.0); LYMPHOCYTES % (AUTO) 6.6 % (20.0-45.0)
[2019-03-25] MEDS: Heparin 25,000u/D5W 500ml 500 ML IV SCH (22:33)
[2019-03-26] VITALS: BP 142/79
[2019-03-26 04:00] VITALS: BP 154/86
[2019-03-26] MEDS: NovoLOG Insulin Flexpen SUBQ SCH ×4 (05:31→21:00)
[2019-03-26 05:51] LABS: HEMATOCRIT 29.4 % (42.0-52.0); HEMOGLOBIN 8.9 G/DL (14.2-18.0); MEAN CORPUSCULAR VOLUME 88 FL (80-99); PLATELET COUNT 535 K/UL (150-450); RED BLOOD COUNT 3.36 M/UL (4.70-6.10); WHITE BLOOD COUNT 13.3 K/UL (4.8-10.8)
[2019-03-26 05:59] LABS: ANION GAP 8 mmol/L (5-15); BLOOD UREA NITROGEN 9 mg/dL (7-18); CALCIUM 9.1 MG/DL (8.5-10.1); CARBON DIOXIDE 27 MMOL/L (21-32); CHLORIDE 105 MMOL/L (98-107); CREATININE 0.5 MG/DL (0.55-1.30); POTASSIUM 3.9 MMOL/L (3.5-5.1); SODIUM 140 MMOL/L (136-145)
[2019-03-26 08:00] VITALS: BP 152/93
[2019-03-26] MEDS: Docusate 100mg/10ml Liq ORAL SCH ×2 (08:10→18:00)
[2019-03-26] MEDS: Cefepime HCl 1 GM in D5W 55 ML IVPB SCH ×2 (09:04→21:37)
[2019-03-26] MEDS: Lidocaine 1% Plain 30 ml INJ SCH (09:15)
[2019-03-26] MEDS: Heparin1,000 units/500ml Premix(Conc:2 units/ml) IV SCH (09:30)
--- NOTE | 2019-03-26 10:15 | NUR ---
NURSE NOTES: patient has taken off IV access, even though he's on bilateral soft wrist restraint. As pt is on heparin drip, communicated to dr. Gifford, who said he'll come later during the day and order for a PICC to be placed.
--- NOTE | 2019-03-26 10:28 | General Progress Note ---
Assessment/Plan Status: doing well, stable, unchanged Assessment/Plan: (1) Hematuria (2) Anemia (3) GI bleed (4) Sepsis Plan Speech therapy evaluation noted, patient placed on pure and nectar thick diet POLST reviewed Possible anemia secondary to hematuria Conservative management anemia work up OB stool to rule out GI bleed, will consider endoscopy if positive monitor H&H, prn transfusions bowel regimen ppi fu labs colace and miralax Subjective ROS Limited/Unobtainable: No Allergies: Coded Allergies: PENICILLINS (Verified Allergy, Unknown, 03/21/19) Objective Last 24 Hour Vital Signs Date Time Temp Pulse Resp B/P (MAP) Pulse Ox O2 Delivery O2 Flow Rate FiO2 03/26/19 09:00 Room Air 03/26/19 08:00 97.4 99 18 152/93 (112) 94 03/26/19 04:00 98.0 109 20 154/86 (108) 100 03/26/19 00:00 98.1 100 20 142/79 (100) 96 03/25/19 21:00 Room Air 03/25/19 20:00 98.4 103 18 121/78 (92) 94 03/25/19 15:51 97.9 62 18 130/85 (100) 95 03/25/19 12:00 97.9 78 18 132/60 (84) 95 Intake and Output 03/25/19 03/26/19 19:00 07:00 Intake Total 500 ml 350.144 ml Output Total 750 ml Balance -250 ml 350.144 ml Intake Oral 500 ml IV Total 350.144 ml Output Urine Total 750 ml Laboratory Tests 03/25/19 20:40: White Blood Count 12.8H, Red Blood Count 3.33L, Hemoglobin 8.8L, Hematocrit 28.4L, Mean Corpuscular Volume 85, Mean Corpuscular Hemoglobin 26.4L, Mean Corpuscular Hemoglobin Concent 31.0L, Red Cell Distribution Width 17.4H, Platelet Count 584H, Mean Platelet Volume 4.9L, Neutrophils (%) (Auto) 86.5H, Lymphocytes (%) (Auto) 6.6L, Monocytes (%) (Auto) 6.0, Eosinophils (%) (Auto) 0.3, Basophils (%) (Auto) 0.6, Activated Partial Thromboplast Time 24 03/26/19 05:35: White Blood Count 13.3H, Red Blood Count 3.36L, Hemoglobin 8.9L, Hematocrit 29.4L, Mean Corpuscular Volume 88, Mean Corpuscular Hemoglobin 26.5L, Mean Corpuscular Hemoglobin Concent 30.3L, Red Cell Distribution Width 18.0H, Platelet Count 535H, Mean Platelet Volume 4.6L, Neutrophils (%) (Auto) , Lymphocytes (%) (Auto) , Monocytes (%) (Auto) , Eosinophils (%) (Auto) , Basophils (%) (Auto) , Activated Partial Thromboplast Time 89H, Differential Total Cells Counted 100, Neutrophils % (Manual) 80H, Lymphocytes % (Manual) 6L, Monocytes % (Manual) 8, Eosinophils % (Manual) 1, Basophils % (Manual) 0, Band Neutrophils 5, Platelet Estimate IncreasedH, Platelet Morphology Normal, Hypochromasia 1+, Anisocytosis 1+, Sodium Level 140, Potassium Level 3.9, Chloride Level 105, Carbon Dioxide Level 27, Anion Gap 8, Blood Urea Nitrogen 9 , Creatinine 0.5L, Estimat Glomerular Filtration Rate > 60, Glucose Level 112H, Calcium Level 9.1 Height (Feet): 5 Height (Inches): 8.00 Weight (Pounds): 180 General Appearance: alert EENT: normal ENT inspection Neck: supple Cardiovascular: normal rate Respiratory/Chest: decreased breath sounds Abdomen: normal bowel sounds, non tender, soft Extremities: non-tender Bronson Baron MD Mar 26, 2019 10:28
[2019-03-26 12:00] VITALS: BP 130/86
--- NOTE | 2019-03-26 15:27 | General Progress Note ---
Assessment/Plan Status: doing well, stable, unchanged Assessment/Plan: Assessment/Plan Status: unchanged Assessment/Plan: 68 year old male with PMH of malignant brain tumor, anemia, NIDDM, COPD, BPH, history of UTI, hypertension admitted for severe anemia, sepsis, GI bleed, lung cancer, UTI. #Sepsis 2/2 pseudomonas UTI -cont cefepime per ID -ID consult appreciated -CTM #Severe anemia likely 2/2 GI source and IDRIS -Gi Consult appreciated, FOBT pending. -Venofer started -Hematology consult aprpeciated -Hb acceptable s/p transfusion - #Diabetes mellitus -ISS -carb controlled feeding -can add lantus if needed -FSG QAC and hs #Hypertension -Initially held antihypertensives due to sepsis -BP currently needs better control -home meds -Norvasc 10mg ( started today 03/26 as SBP in the 150 noted ) and lisinopril 20mg ( home med can be added if needed ) #BPH -cont flomax #Metastatic lung cancer Code: DNAR Subjective ROS Limited/Unobtainable: Yes Allergies: Coded Allergies: PENICILLINS (Verified Allergy, Unknown, 03/21/19) Objective Last 24 Hour Vital Signs Date Time Temp Pulse Resp B/P (MAP) Pulse Ox O2 Delivery O2 Flow Rate FiO2 03/26/19 12:00 97.7 102 18 130/86 (101) 94 03/26/19 09:00 Room Air 03/26/19 08:00 97.4 99 18 152/93 (112) 94 03/26/19 04:00 98.0 109 20 154/86 (108) 100 03/26/19 00:00 98.1 100 20 142/79 (100) 96 03/25/19 21:00 Room Air 03/25/19 20:00 98.4 103 18 121/78 (92) 94 03/25/19 15:51 97.9 62 18 130/85 (100) 95 Intake and Output 03/25/19 03/26/19 18:59 06:59 Intake Total 500 ml 350.144 ml Output Total 750 ml Balance -250 ml 350.144 ml Intake Oral 500 ml IV Total 350.144 ml Output Urine Total 750 ml Laboratory Tests 03/25/19 20:40: White Blood Count 12.8H, Red Blood Count 3.33L, Hemoglobin 8.8L, Hematocrit 28.4L, Mean Corpuscular Volume 85, Mean Corpuscular Hemoglobin 26.4L, Mean Corpuscular Hemoglobin Concent 31.0L, Red Cell Distribution Width 17.4H, Platelet Count 584H, Mean Platelet Volume 4.9L, Neutrophils (%) (Auto) 86.5H, Lymphocytes (%) (Auto) 6.6L, Monocytes (%) (Auto) 6.0, Eosinophils (%) (Auto) 0.3, Basophils (%) (Auto) 0.6, Activated Partial Thromboplast Time 24 03/26/19 05:35: White Blood Count 13.3H, Red Blood Count 3.36L, Hemoglobin 8.9L, Hematocrit 29.4L, Mean Corpuscular Volume 88, Mean Corpuscular Hemoglobin 26.5L, Mean Corpuscular Hemoglobin Concent 30.3L, Red Cell Distribution Width 18.0H, Platelet Count 535H, Mean Platelet Volume 4.6L, Neutrophils (%) (Auto) , Lymphocytes (%) (Auto) , Monocytes (%) (Auto) , Eosinophils (%) (Auto) , Basophils (%) (Auto) , Activated Partial Thromboplast Time 89H, Differential Total Cells Counted 100, Neutrophils % (Manual) 80H, Lymphocytes % (Manual) 6L, Monocytes % (Manual) 8, Eosinophils % (Manual) 1, Basophils % (Manual) 0, Band Neutrophils 5, Platelet Estimate IncreasedH, Platelet Morphology Normal, Hypochromasia 1+, Anisocytosis 1+, Sodium Level 140, Potassium Level 3.9, Chloride Level 105, Carbon Dioxide Level 27, Anion Gap 8, Blood Urea Nitrogen 9 , Creatinine 0.5L, Estimat Glomerular Filtration Rate > 60, Glucose Level 112H, Calcium Level 9.1 Height (Feet): 5 Height (Inches): 8.00 Weight (Pounds): 180 General Appearance: WD/WN EENT: PERRL/EOMI Neck: non-tender Cardiovascular: normal peripheral pulses, normal rate, regular rhythm Respiratory/Chest: chest wall non-tender, lungs clear, normal breath sounds Abdomen: normal bowel sounds, non tender Extremities: normal range of motion 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
[2019-03-26 16:00] VITALS: BP 138/87
--- NOTE | 2019-03-26 19:55 | NUR ---
NURSE NOTES: Received patient asleep.on bilateral soft wrist restraints on,new IV access placed on left hand,Heparin drip resumed as ordered. Left messages to his two daughters named Bruna and Maria C Alanis to return call at [facility] to give telephone consent for PICC line placement for patient Walt Alanis. Awaiting return call.
[2019-03-26 20:00] VITALS: BP_SYST 144; BP_SYST 177; BP_DIAS 81; BP_DIAS 91
[2019-03-26] MEDS: Dyna-Hex 2% Top Sol 2oz TOPIC SCH (20:00)
--- NOTE | 2019-03-26 20:12 | NUR ---
HAND-OFF: Report given to MARIO Capone.
[2019-03-26] MEDS: Miralax 17gm pkt ORAL SCH (21:05)
[2019-03-26] MEDS: Iron Sucrose 100 MG in NS 55 ML IV SCH (21:05)
--- NOTE | 2019-03-26 21:08 | Hematology/Onc Progress Note ---
Assessment/Plan Assessment/Plan ASSESSMENT AND RECC'S #. History of Lung Ca --> CEA level 9.1 --> CT Abd results reviewed # Anemia of chronic disease due to underlying chronic medical issues, multifactorial, malignancy --> Anemia workup has been reviewed, Ferritin 262, Iron 6, TIBC 132, Iron sat 5% . --> No evidence of hemolysis is noted, peripheral smear has been reviewed. --> Hgb goal >7. Transfuse prn. HGB 9.5--> 9.7 --> Epogen or iron at this time is not particularly indicated --> Medications have been reviewed --> low threshold for gi evaluation in case has occult + --> CEA level 9.1 # Anemia due to Hematuria --> per gi recs --> conservative management --> may consider gu as per pcp # Leukocytosis/elevated white blood cell count, unspecified likely related to underlying stress reaction, smoking v more likely infection --> have reviewed peripheral smear and bandemia/neutrophilia noted --> on cefepime per id --> monitor for resolution --> WBC 13.8--> 13.2 # Hematuria --> currently improved # Sepsis POA --> consider abx needed The timing of this note does not necessarily reflect the time of the patient was seen. GREATLY APPRECIATE CONSULTATION. Subjective Allergies: Coded Allergies: PENICILLINS (Verified Allergy, Unknown, 03/21/19) Subjective 03/24: pt confused, has restraints on. 03/25:PICC line 1 port clogged. 03/26: pt on hep gtt. Objective Objective Current Medications Medications (Trade) Dose Ordered Sig/Stephani Route PRN Reason Start Time Stop Time Status Last Admin Dose Admin Acetaminophen (Tylenol) 500 mg Q4H PRN ORAL Mild Pain/Temp > 100.5 03/22/19 18:27 04/21/19 18:26 Amlodipine Besylate (Norvasc) 5 mg DAILY ORAL 03/26/19 15:30 04/25/19 15:29 Bisacodyl (Dulcolax) 10 mg DAILYPRN PRN RECTAL Constipation 03/25/19 19:15 04/24/19 19:14 Cefepime HCl 1 gm/ Dextrose 55 ml @ 110 mls/hr EVERY 12 HOURS IVPB 03/22/19 21:00 03/29/19 08:59 03/26/19 09:04 Chlorhexidine Gluconate (Yesi-Hex 2%) 1 applic DAILY@1999 TOPIC 03/22/19 20:00 03/27/19 19:59 03/23/19 21:29 Chlorhexidine Gluconate (Yesi-Hex 2%) 1 applic DAILY@1999 TOPIC 03/27/19 20:00 04/26/19 19:59 Dextrose (Dextrose 50%) 25 ml Q30M PRN IV Hypoglycemia 03/23/19 13:00 04/22/19 12:59 Dextrose (Dextrose 50%) 50 ml Q30M PRN IV Hypoglycemia 03/23/19 13:04 04/22/19 13:03 Docusate Sodium (Colace) 100 mg TWICE A DAY ORAL 03/25/19 09:00 04/24/19 08:59 03/26/19 08:10 Heparin Sodium/ Dextrose 500 ml @ 29.393 mls/ hr ADJUST PER PROTOCOL IV 03/25/19 20:15 04/24/19 20:14 03/25/19 22:33 Heparin Sodium/ Sodium Chloride (Heparin 1000 units/500ml Premix) 1,000 unit ONCE IV 03/25/19 09:30 03/27/19 23:59 Insulin Aspart (NovoLOG) BEFORE MEALS AND HS SUBQ 03/23/19 16:30 04/22/19 16:29 03/26/19 05:31 Iopamidol (Isovue-300 100ml) 100 ml NOW PRN INJ Radiology Procedure 03/23/19 14:00 04/22/19 13:59 Iron Sucrose 100 mg/Sodium Chloride 60 ml @ 240 mls/hr BEDTIME IV 03/23/19 21:00 03/27/19 21:14 03/26/19 21:05 Lidocaine HCl (Xylocaine 1% 30ml) 30 ml ONCE INJ 03/25/19 09:15 03/27/19 20:00 Polyethylene Glycol (Miralax) 17 gm BEDTIME ORAL 03/25/19 21:00 04/24/19 20:59 03/26/19 21:05 Last 24 Hour Vital Signs Date Time Temp Pulse Resp B/P (MAP) Pulse Ox O2 Delivery O2 Flow Rate FiO2 03/26/19 20:20 Room Air 03/26/19 20:00 98.5 116 18 144/91 (108) 93 03/26/19 16:00 97.7 100 20 138/87 (104) 94 03/26/19 15:30 100 138/87 03/26/19 12:00 97.7 102 18 130/86 (101) 94 03/26/19 09:00 Room Air 03/26/19 08:00 97.4 99 18 152/93 (112) 94 03/26/19 04:00 98.0 109 20 154/86 (108) 100 03/26/19 00:00 98.1 100 20 142/79 (100) 96 03/25/19 21:00 Room Air 03/25/19 20:00 98.4 103 18 121/78 (92) 94 03/25/19 15:51 97.9 62 18 130/85 (100) 95 03/25/19 12:00 97.9 78 18 132/60 (84) 95 03/25/19 09:00 Room Air 03/25/19 07:54 97.9 78 18 146/60 (88) 95 03/25/19 04:00 97.9 73 18 123/54 (77) 95 03/25/19 00:00 97.9 97 20 131/79 (96) 99 Intake and Output 03/25/19 03/26/19 19:00 07:00 Intake Total 500 ml 350.144 ml Output Total 750 ml Balance -250 ml 350.144 ml Intake Oral 500 ml IV Total 350.144 ml Output Urine Total 750 ml Labs Test 03/24/19 06:40 03/25/19 05:41 03/25/19 20:40 03/26/19 05:35 White Blood Count 13.8 K/UL (4.8-10.8) 13.2 K/UL (4.8-10.8) 12.8 K/UL (4.8-10.8) 13.3 K/UL (4.8-10.8) Red Blood Count 3.58 M/UL (4.70-6.10) 3.64 M/UL (4.70-6.10) 3.33 M/UL (4.70-6.10) 3.36 M/UL (4.70-6.10) Hemoglobin 9.5 G/DL (14.2-18.0) 9.7 G/DL (14.2-18.0) 8.8 G/DL (14.2-18.0) 8.9 G/DL (14.2-18.0) Hematocrit 31.7 % (42.0-52.0) 32.5 % (42.0-52.0) 28.4 % (42.0-52.0) 29.4 % (42.0-52.0) Mean Corpuscular Volume 89 FL (80-99) 89 FL (80-99) 85 FL (80-99) 88 FL (80- 99) Mean Corpuscular Hemoglobin 26.6 PG (27.0-31.0) 26.6 PG (27.0-31.0) 26.4 PG (27.0-31.0) 26.5 PG (27.0-31.0) Mean Corpuscular Hemoglobin Concent 30.0 G/DL (32.0-36.0) 29.8 G/DL (32.0-36.0) 31.0 G/DL (32.0-36.0) 30.3 G/DL (32.0-36.0) Red Cell Distribution Width 18.4 % (11.6-14.8) 18.1 % (11.6-14.8) 17.4 % (11.6-14.8) 18.0 % (11.6-14.8) Platelet Count 578 K/UL (150-450) 614 K/UL (150-450) 584 K/UL (150-450) 535 K/UL (150-450) Mean Platelet Volume 4.9 FL (6.5-10.1) 4.8 FL (6.5-10.1) 4.9 FL (6.5-10.1) 4.6 FL (6.5-10.1) Neutrophils (%) (Auto) % (45.0-75.0) % (45.0-75.0) 86.5 % (45.0-75.0) % (45.0-75.0) Lymphocytes (%) (Auto) % (20.0-45.0) % (20.0-45.0) 6.6 % (20.0-45.0) % (20.0-45.0) Monocytes (%) (Auto) % (1.0-10.0) % (1.0-10.0) 6.0 % (1.0-10.0) % (1.0-10.0) Eosinophils (%) (Auto) % (0.0-3.0) % (0.0-3.0) 0.3 % (0.0-3.0) % (0.0-3.0) Basophils (%) (Auto) % (0.0-2.0) % (0.0-2.0) 0.6 % (0.0-2.0) % (0.0-2.0) Differential Total Cells Counted 100 100 100 Neutrophils % (Manual) 81 % (45-75) 90 % (45-75) 80 % (45-75) Lymphocytes % (Manual) 12 % (20-45) 5 % (20-45) 6 % (20-45) Monocytes % (Manual) 6 % (1-10) 5 % (1-10) 8 % (1-10) Eosinophils % (Manual) 1 % (0-3) 0 % (0-3) 1 % (0-3) Basophils % (Manual) 0 % (0-2) 0 % (0-2) 0 % (0-2) Band Neutrophils 0 % (0-8) 0 % (0-8) 5 % (0-8) Nucleated Red Blood Cells 1 /100 WBC Platelet Estimate Adequate Increased Increased Platelet Morphology Normal Normal Normal Hypochromasia 2+ 1+ 1+ Anisocytosis 2+ 1+ 1+ Sodium Level 144 MMOL/L (136-145) 145 MMOL/L (136-145) 140 MMOL/L (136-145) Potassium Level 4.1 MMOL/L (3.5-5.1) 3.8 MMOL/L (3.5-5.1) 3.9 MMOL/L (3.5-5.1) Chloride Level 107 MMOL/L (98-107) 106 MMOL/L (98-107) 105 MMOL/L (98-107) Carbon Dioxide Level 29 MMOL/L (21-32) 29 MMOL/L (21-32) 27 MMOL/L (21-32) Anion Gap 8 mmol/L (5-15) 10 mmol/L (5-15) 8 mmol/L (5-15) Blood Urea Nitrogen 9 mg/dL (7-18) 8 mg/dL (7-18) 9 mg/dL (7-18) Creatinine 0.7 MG/DL (0.55-1.30) 0.6 MG/DL (0.55-1.30) 0.5 MG/DL (0.55-1.30) Estimat Glomerular Filtration Rate > 60 mL/min (>60) > 60 mL/min (>60) > 60 mL/min (>60) Glucose Level 89 MG/DL (74-106) 62 MG/DL (74-106) 112 MG/DL (74-106) Calcium Level 9.5 MG/DL (8.5-10.1) 9.6 MG/DL (8.5-10.1) 9.1 MG/DL (8.5-10.1) Activated Partial Thromboplast Time 24 SEC (23-33) 89 SEC (23-33) Height (Feet): 5 Height (Inches): 8.00 Weight (Pounds): 180 Objective General Appearance: well appearing, no apparent distress, confused Head: normocephalic EENT: PERRL/EOMI, normal ENT inspection Neck: supple Respiratory: normal breath sounds, no respiratory distress CV: normal rate GI: normal inspection, non tender, soft, normal bowel sounds, non-distended : deferred Musculoskeletal: normal inspection, back normal Neurologic: alert, responsive Lymphatic: normal inspection, no adenopathy Carolina Monroe NP Mar 26, 2019 21:08
[2019-03-26] MEDS: Heparin 25,000u/D5W 500ml 500 ML IV SCH (23:06)
[2019-03-27] VITALS: BP 133/99
[2019-03-27 04:00] VITALS: BP 167/97
[2019-03-27] MEDS: NovoLOG Insulin Flexpen SUBQ SCH ×4 (06:10→21:20)
[2019-03-27 06:14] LABS: HEMATOCRIT 28.8 % (42.0-52.0); HEMOGLOBIN 8.7 G/DL (14.2-18.0); MEAN CORPUSCULAR VOLUME 87 FL (80-99); PLATELET COUNT 580 K/UL (150-450); RED BLOOD COUNT 3.32 M/UL (4.70-6.10); RED CELL DISTRIBUTION WIDTH 18.1 % (11.6-14.8); WHITE BLOOD COUNT 12.2 K/UL (4.8-10.8)
[2019-03-27 06:17] LABS: ANION GAP 10 mmol/L (5-15); BLOOD UREA NITROGEN 8 mg/dL (7-18); CALCIUM 9.1 MG/DL (8.5-10.1); CARBON DIOXIDE 27 MMOL/L (21-32); CHLORIDE 106 MMOL/L (98-107); CREATININE 0.6 MG/DL (0.55-1.30); POTASSIUM 3.3 MMOL/L (3.5-5.1); SODIUM 142 MMOL/L (136-145)
[2019-03-27] MEDS ORDERED: Heparin 25,000u/D5W 500ml 500 ML IV SCH ×2 (07:00)
--- NOTE | 2019-03-27 07:19 | NUR ---
HAND-OFF: Report given to Marizol Jaramillo RN.
--- NOTE | 2019-03-27 07:58 | NUR ---
NURSE NOTES: Received report from MARIO Caceres. Pt in bed, awake, in bilateral wrist restraints, bilateral radial pulses 2+, hands warm to touch, no pallor noted, active ability to move bilateral hands, strength 5/5 in bilateral hands, bed in lowest position, call light within reach, no apparent distress noted.
[2019-03-27 08:00] VITALS: BP 155/88
[2019-03-27] MEDS: Docusate 100mg/10ml Liq ORAL SCH ×3 (08:12→16:53)
[2019-03-27] MEDS: Cefepime HCl 1 GM in D5W 55 ML IVPB SCH ×2 (08:23→21:00)
--- NOTE | 2019-03-27 10:59 | GI Progress Note ---
Assessment/Plan Problems: (1) Anemia ICD Codes: D64.9 - Anemia, unspecified SNOMED: 536453021 Qualifiers: Qualified Codes: D64.9 - Anemia, unspecified (2) GI bleed ICD Codes: K92.2 - Gastrointestinal hemorrhage, unspecified SNOMED: 18009505 Qualifiers: Qualified Codes: K92.2 - Gastrointestinal hemorrhage, unspecified (3) Hematuria ICD Codes: R31.9 - Hematuria, unspecified SNOMED: 52512826 Status: unchanged Status Narrative Discussed with Dr. Baron. Assessment/Plan Speech therapy evaluation noted, patient placed on pure and nectar thick diet POLST reviewed Possible anemia secondary to hematuria stable H&H Conservative management OB stool to rule out GI bleed monitor H&H, prn transfusions bowel regimen, fleets x1 ppi fu labs The patient was seen and examined at bedside and all new and available data was reviewed in the patients chart. I agree with the above findings, impression and plan. (Patient seen earlier today. Signature stamp does not reflect patient encounter time.). - Bronson Baron MD Subjective Subjective limited Objective Last 24 Hour Vital Signs Date Time Temp Pulse Resp B/P (MAP) Pulse Ox O2 Delivery O2 Flow Rate FiO2 03/27/19 09:00 Room Air 03/27/19 08:13 106 155/88 03/27/19 08:00 97.8 106 18 155/88 (110) 98 03/27/19 04:00 97.5 100 18 167/97 (120) 98 03/27/19 00:00 98.0 101 16 133/99 (110) 94 03/26/19 20:20 Room Air 03/26/19 20:00 98.5 116 18 144/91 (108) 93 03/26/19 16:00 97.7 100 20 138/87 (104) 94 03/26/19 15:30 100 138/87 03/26/19 12:00 97.7 102 18 130/86 (101) 94 Intake and Output 03/26/19 03/27/19 19:00 07:00 Intake Total 120 ml 379.537 ml Output Total 500 ml 150 ml Balance -380 ml 229.537 ml Intake Oral 120 ml IV Total 379.537 ml Output Urine Total 500 ml 150 ml # Voids 2 Laboratory Tests Test 03/27/19 05:30 White Blood Count 12.2 K/UL (4.8-10.8) H Red Blood Count 3.32 M/UL (4.70-6.10) L Hemoglobin 8.7 G/DL (14.2-18.0) L Hematocrit 28.8 % (42.0-52.0) L Mean Corpuscular Volume 87 FL (80-99) Mean Corpuscular Hemoglobin 26.4 PG (27.0-31.0) L Mean Corpuscular Hemoglobin Concent 30.3 G/DL (32.0-36.0) L Red Cell Distribution Width 18.1 % (11.6-14.8) H Platelet Count 580 K/UL (150-450) H Mean Platelet Volume 5.1 FL (6.5-10.1) L Neutrophils (%) (Auto) % (45.0-75.0) Lymphocytes (%) (Auto) % (20.0-45.0) Monocytes (%) (Auto) % (1.0-10.0) Eosinophils (%) (Auto) % (0.0-3.0) Basophils (%) (Auto) % (0.0-2.0) Activated Partial Thromboplast Time 99 SEC (23-33) H Sodium Level 142 MMOL/L (136-145) Potassium Level 3.3 MMOL/L (3.5-5.1) L Chloride Level 106 MMOL/L (98-107) Carbon Dioxide Level 27 MMOL/L (21-32) Anion Gap 10 mmol/L (5-15) Blood Urea Nitrogen 8 mg/dL (7-18) Creatinine 0.6 MG/DL (0.55-1.30) Estimat Glomerular Filtration Rate > 60 mL/min (>60) Glucose Level 96 MG/DL (74-106) Calcium Level 9.1 MG/DL (8.5-10.1) Height (Feet): 5 Height (Inches): 8.00 Weight (Pounds): 180 General Appearance: no apparent distress Cardiovascular: normal rate Respiratory/Chest: normal breath sounds, no respiratory distress Abdominal Exam: soft Luis Angel Jiang [employer] Mar 27, 2019 10:59
[2019-03-27] MEDS ORDERED: Fleet's Enema 133ml RECTAL SCH (11:00)
--- NOTE | 2019-03-27 11:08 | NUR ---
NURSE NOTES: Notified Dr. Wilkins (covering for Dr. Henriquez, per Florence's office) K 3.3. Also asked about planned for PICC line insertion. supervisor detasseling crew RNNicki was able to get IV access. Pt is on Heparin drip and no consent signed as pt is confused an unable to sign for self and according to Nicki, RN message were left for family regarding consent Addendum: 03/27/19 at 1141 by SEMAJ INFANTE RN NURSE NOTES: Also, notified Dr. Wilkins of DVT RUE
[2019-03-27 11:45] VITALS: BP 145/79
--- NOTE | 2019-03-27 12:49 | NUR ---
NURSE NOTES: Spoke with Dr. Wilkins, no need for PICC line insertion since Peripheral IV access is working. Notified Edward in Radiology to cancel PICC line insertion order. 11:40 Enema given to pt per JORGE Ramírez order, well tolerated by pt. RN able to collect BM for Stool OB 1 of 3. Sent to lab at 1243pm BM formed, yellow in color, no noted blood in stool
--- NOTE | 2019-03-27 14:05 | Infectious Diseases Prog Note ---
Assessment/Plan Assessment/Plan IMPRESSION: 1. Sepsis with leukocytosis, tachycardia, lactic acidosis. 2. Pseudomonas UTI. 3. Right-sided pleural effusion or atelectasis, may have underlying pneumonia, . 4. Diabetes mellitus. 5. Hypertension. 6. Severe anemia. 7. Metastatic lung cancer RECOMMENDATION: Continue with cefepime Subjective ROS Limited/Unobtainable: Yes Constitutional: Denies: fever Neurologic: Reports: confusion, other - drowsy, no restraint Allergies: Coded Allergies: PENICILLINS (Verified Allergy, Unknown, 03/21/19) Objective Vital Signs Last 24 Hour Vital Signs Date Time Temp Pulse Resp B/P (MAP) Pulse Ox O2 Delivery O2 Flow Rate FiO2 03/27/19 11:45 98.0 91 18 145/79 (101) 96 03/27/19 09:00 Room Air 03/27/19 08:13 106 155/88 03/27/19 08:00 97.8 106 18 155/88 (110) 98 03/27/19 04:00 97.5 100 18 167/97 (120) 98 03/27/19 00:00 98.0 101 16 133/99 (110) 94 03/26/19 20:20 Room Air 03/26/19 20:00 98.5 116 18 144/91 (108) 93 03/26/19 16:00 97.7 100 20 138/87 (104) 94 03/26/19 15:30 100 138/87 Height (Feet): 5 Height (Inches): 8.00 Weight (Pounds): 180 General Appearance: no acute distress HEENT: mucous membranes moist Respiratory/Chest: lungs clear Cardiovascular: normal rate Abdomen: soft, non tender Extremities: other - edema of arms, finger clubbing Neurologic/Psychiatric: alert, responsive, other - lethargic Laboratory Tests Test 03/27/19 05:30 03/27/19 12:35 White Blood Count 12.2 K/UL (4.8-10.8) H Red Blood Count 3.32 M/UL (4.70-6.10) L Hemoglobin 8.7 G/DL (14.2-18.0) L Hematocrit 28.8 % (42.0-52.0) L Mean Corpuscular Volume 87 FL (80-99) Mean Corpuscular Hemoglobin 26.4 PG (27.0-31.0) L Mean Corpuscular Hemoglobin Concent 30.3 G/DL (32.0-36.0) L Red Cell Distribution Width 18.1 % (11.6-14.8) H Platelet Count 580 K/UL (150-450) H Mean Platelet Volume 5.1 FL (6.5-10.1) L Neutrophils (%) (Auto) % (45.0-75.0) Lymphocytes (%) (Auto) % (20.0-45.0) Monocytes (%) (Auto) % (1.0-10.0) Eosinophils (%) (Auto) % (0.0-3.0) Basophils (%) (Auto) % (0.0-2.0) Activated Partial Thromboplast Time 99 SEC (23-33) H Sodium Level 142 MMOL/L (136-145) Potassium Level 3.3 MMOL/L (3.5-5.1) L Chloride Level 106 MMOL/L (98-107) Carbon Dioxide Level 27 MMOL/L (21-32) Anion Gap 10 mmol/L (5-15) Blood Urea Nitrogen 8 mg/dL (7-18) Creatinine 0.6 MG/DL (0.55-1.30) Estimat Glomerular Filtration Rate > 60 mL/min (>60) Glucose Level 96 MG/DL (74-106) Calcium Level 9.1 MG/DL (8.5-10.1) Stool Occult Blood Pending Current Medications Medications (Trade) Dose Ordered Sig/Stephani Route PRN Reason Start Time Stop Time Status Last Admin Dose Admin Acetaminophen (Tylenol) 500 mg Q4H PRN ORAL Mild Pain/Temp > 100.5 03/22/19 18:27 04/21/19 18:26 Amlodipine Besylate (Norvasc) 5 mg DAILY ORAL 03/26/19 15:30 04/25/19 15:29 03/27/19 08:13 Bisacodyl (Dulcolax) 10 mg DAILYPRN PRN RECTAL Constipation 03/25/19 19:15 04/24/19 19:14 Cefepime HCl 1 gm/ Dextrose 55 ml @ 110 mls/hr EVERY 12 HOURS IVPB 03/22/19 21:00 03/29/19 08:59 03/27/19 08:23 Chlorhexidine Gluconate (Yesi-Hex 2%) 1 applic DAILY@1999 TOPIC 03/22/19 20:00 03/27/19 19:59 03/23/19 21:29 Chlorhexidine Gluconate (Yesi-Hex 2%) 1 applic DAILY@1999 TOPIC 03/27/19 20:00 04/26/19 19:59 Dextrose (Dextrose 50%) 25 ml Q30M PRN IV Hypoglycemia 03/23/19 13:00 04/22/19 12:59 Dextrose (Dextrose 50%) 50 ml Q30M PRN IV Hypoglycemia 03/23/19 13:04 04/22/19 13:03 Docusate Sodium (Colace) 100 mg TID ORAL 03/27/19 13:00 04/24/19 08:59 03/27/19 12:12 Heparin Sodium/ Dextrose 500 ml @ 26.127 mls/ hr ADJUST PER PROTOCOL IV 03/27/19 07:00 04/24/19 20:14 03/27/19 08:19 Heparin Sodium/ Sodium Chloride (Heparin 1000 units/500ml Premix) 1,000 unit ONCE IV 03/25/19 09:30 03/27/19 23:59 Insulin Aspart (NovoLOG) BEFORE MEALS AND HS SUBQ 03/23/19 16:30 04/22/19 16:29 03/27/19 11:51 Iopamidol (Isovue-300 100ml) 100 ml NOW PRN INJ Radiology Procedure 03/23/19 14:00 04/22/19 13:59 Iron Sucrose 100 mg/Sodium Chloride 60 ml @ 240 mls/hr BEDTIME IV 03/23/19 21:00 03/27/19 21:14 03/26/19 21:05 Lidocaine HCl (Xylocaine 1% 30ml) 30 ml ONCE INJ 03/25/19 09:15 03/27/19 20:00 Polyethylene Glycol (Miralax) 17 gm BEDTIME ORAL 03/25/19 21:00 04/24/19 20:59 03/26/19 21:05 Juan Pablo Beaulieu MD Mar 27, 2019 14:05
[2019-03-27 16:00] VITALS: BP 126/81
[2019-03-27] MEDS ORDERED: NS 275ml ONE (16:00)
[2019-03-27] MEDS ORDERED: Tubing IV Secondary IV ONE (16:00)
[2019-03-27] MEDS: Heparin 25,000u/D5W 500ml 500 ML IV SCH ×2 (16:16→20:56)
--- NOTE | 2019-03-27 18:45 | NUR ---
CASE MANAGEMENT: REVIEW SI: SEPSIS . METASTATIC LUNG CA T 97.5 HR 106 RR 18 BP 167/97 SAT 98% ROOM AIR WBC 12.2 H/H 8.7/28.8 K 3.3 APTT 108 IS: HEPARIN GTT NORVASC PO QD VENOFER IV QHS CEFEPIME IV Q12HR MED/SURG STATUS DCP: PATIENT IS FROM [facility]
--- NOTE | 2019-03-27 19:40 | NUR ---
NURSE NOTES: Received report from MARIO Fontana. Patient in the bed with HOB elevated, awake. Patient is breathing unlabored and evenly without signs of distress, discomfort, or SOB noted at this time. No pain noted at this time. Patient with bilateral wrist soft restraint to promote safety from pulling out the medical devices such as simpson and IV line. Both wrists are warm to touch, pulse present, and able to move within the restraints. Bed is placed at the lowest level with alarm, brake, and side rails up x 3 for safety measures. Call light placed within reach. Will continue to monitor and provide care as ordered.
--- NOTE | 2019-03-27 19:49 | NUR ---
HAND-OFF: Report given to MARIO Mercedes.
[2019-03-27 20:00] VITALS: BP 137/88
[2019-03-27] MEDS: Dyna-Hex 2% Top Sol 2oz TOPIC SCH (20:00)
[2019-03-27] MEDS: Miralax 17gm pkt ORAL SCH (20:09)
[2019-03-27] MEDS: Iron Sucrose 100 MG in NS 55 ML IV SCH (20:09)
--- NOTE | 2019-03-27 20:40 | General Progress Note ---
Assessment/Plan Status: unchanged Assessment/Plan: 68 year old male with PMH of malignant brain tumor, anemia, NIDDM, COPD, BPH, history of UTI, hypertension admitted for severe anemia, sepsis, GI bleed, lung cancer, UTI. #Sepsis 2/2 pseudomonas UTI -cont cefepime per ID -ID consult appreciated -CTM #Severe anemia likely 2/2 GI source and IDRIS -Gi Consult appreciated, FOBT pending. -Venofer started -Hematology consult aprpeciated -Hb acceptable s/p transfusion - #Diabetes mellitus -ISS -carb controlled feeding -can add lantus if needed -FSG QAC and hs #Hypertension -BP better control -home meds -Norvasc 10mg ( started 03/26 as SBP in the 150 noted ) and lisinopril 20mg #BPH -cont flomax #Metastatic lung cancer Code: DNAR Subjective Date patient seen: Mar 27, 2019 Allergies: Coded Allergies: PENICILLINS (Verified Allergy, Unknown, 03/21/19) All Systems: reviewed and negative except above Subjective No acute overnight events, HR improved, Hypernatremia improved, Objective Last 24 Hour Vital Signs Date Time Temp Pulse Resp B/P (MAP) Pulse Ox O2 Delivery O2 Flow Rate FiO2 03/27/19 16:00 97.4 103 18 126/81 (96) 94 03/27/19 11:45 98.0 91 18 145/79 (101) 96 03/27/19 09:00 Room Air 03/27/19 08:13 106 155/88 03/27/19 08:00 97.8 106 18 155/88 (110) 98 03/27/19 04:00 97.5 100 18 167/97 (120) 98 03/27/19 00:00 98.0 101 16 133/99 (110) 94 Intake and Output 03/26/19 03/27/19 18:59 06:59 Intake Total 120 ml 379.537 ml Output Total 500 ml 150 ml Balance -380 ml 229.537 ml Intake Oral 120 ml IV Total 379.537 ml Output Urine Total 500 ml 150 ml # Voids 2 Laboratory Tests 03/27/19 05:30: White Blood Count 12.2H, Red Blood Count 3.32L, Hemoglobin 8.7L, Hematocrit 28.8L, Mean Corpuscular Volume 87, Mean Corpuscular Hemoglobin 26.4L, Mean Corpuscular Hemoglobin Concent 30.3L, Red Cell Distribution Width 18.1H, Platelet Count 580H, Mean Platelet Volume 5.1L, Neutrophils (%) (Auto) , Lymphocytes (%) (Auto) , Monocytes (%) (Auto) , Eosinophils (%) (Auto) , Basophils (%) (Auto) , Activated Partial Thromboplast Time 99H, Sodium Level 142 , Potassium Level 3.3L, Chloride Level 106, Carbon Dioxide Level 27, Anion Gap 10, Blood Urea Nitrogen 8, Creatinine 0.6, Estimat Glomerular Filtration Rate > 60, Glucose Level 96, Calcium Level 9.1 03/27/19 12:35: Stool Occult Blood [Pending] 03/27/19 14:45: Activated Partial Thromboplast Time 108H Height (Feet): 5 Height (Inches): 8.00 Weight (Pounds): 180 Objective General Appearance: WD/WN EENT: PERRL/EOMI Neck: non-tender Cardiovascular: normal peripheral pulses, normal rate, regular rhythm Respiratory/Chest: chest wall non-tender, lungs clear, normal breath sounds Abdomen: normal bowel sounds, non tender Extremities: normal range of motion Neurologic: surgeon assistant II-XII grossly normal Natalie Wilkins MD Mar 27, 2019 20:40
[2019-03-28] VITALS: BP 158/77
[2019-03-28 04:00] VITALS: BP 120/64
[2019-03-28 04:09] LABS: HEMATOCRIT 28.7 % (42.0-52.0); HEMOGLOBIN 8.8 G/DL (14.2-18.0); MEAN CORPUSCULAR VOLUME 86 FL (80-99); PLATELET COUNT 594 K/UL (150-450); RED BLOOD COUNT 3.35 M/UL (4.70-6.10); RED CELL DISTRIBUTION WIDTH 18.1 % (11.6-14.8)
[2019-03-28 04:17] LABS: ANION GAP 8 mmol/L (5-15); BLOOD UREA NITROGEN 7 mg/dL (7-18); CALCIUM 9.1 MG/DL (8.5-10.1); CARBON DIOXIDE 29 MMOL/L (21-32); CHLORIDE 106 MMOL/L (98-107); CREATININE 0.6 MG/DL (0.55-1.30); POTASSIUM 3.5 MMOL/L (3.5-5.1); SODIUM 143 MMOL/L (136-145)
[2019-03-28] MEDS: NovoLOG Insulin Flexpen SUBQ SCH ×4 (06:10→21:00)
--- NOTE | 2019-03-28 07:27 | NUR ---
HAND-OFF: Report given to MARIO Hewitt. Patient in stable condition.
--- NOTE | 2019-03-28 07:30 | NUR ---
NURSE NOTES: RN received pt in stable condition sleeping in bed. No s/s of acute distress or SOB. Bed in low, locked position, call light within reach. Will continue plan of care.
[2019-03-28 08:00] VITALS: BP 160/99
--- NOTE | 2019-03-28 08:00 | NUR ---
NURSE NOTES: RN attempted to turn pt. Pt attempted refusal - stating no and hitting. RN able to reposition slightly.
[2019-03-28] MEDS: Docusate 100mg/10ml Liq ORAL SCH ×4 (09:00→17:43)
[2019-03-28] MEDS: Cefepime HCl 1 GM in D5W 55 ML IVPB SCH (09:13)
--- NOTE | 2019-03-28 09:17 | Hematology/Onc Progress Note ---
Assessment/Plan Assessment/Plan ASSESSMENT AND RECS #. Metastatic Lung Cancer history --> CEA level 9.1 --> CT Abd results reviewed --> outpatient care/onco --> may have brain involvement as well # Anemia of chronic disease due to underlying chronic medical issues, multifactorial, malignancy --> Anemia workup has been reviewed, Ferritin 262, Iron 6, TIBC 132, Iron sat 5% . --> No evidence of hemolysis is noted, peripheral smear has been reviewed. --> Hgb goal >7. Transfuse prn. HGB 9.5--> 9.7 --> Epogen or iron at this time is not particularly indicated --> Medications have been reviewed --> low threshold for gi evaluation in case has occult + --> CEA level 9.1 # Anemia due to Hematuria --> per gi recs --> conservative management --> may consider gu as per pcp # Leukocytosis/elevated white blood cell count, unspecified likely related to underlying stress reaction, smoking v more likely infection --> have reviewed peripheral smear and bandemia/neutrophilia noted --> on cefepime per id --> monitor for resolution --> WBC 13.8--> 13.2-->14 # Hematuria --> currently improved # Sepsis POA --> consider abx needed The timing of this note does not necessarily reflect the time of the patient was seen. GREATLY APPRECIATE CONSULTATION. Subjective Constitutional: Denies: no symptoms, chills, fever, malaise, weakness, other HEENT: Denies: no symptoms, eye pain, blurred vision, tearing, double vision, ear pain, ear discharge, nose pain, nose congestion, throat pain, throat swelling, mouth pain, mouth swelling, other Cardiovascular: Denies: no symptoms, chest pain, edema, irregular heart rate, lightheadedness, palpitations, syncope, other Respiratory: Denies: no symptoms, cough, shortness of breath, SOB with excertion, SOB at rest, sputum, wheezing, other Genitourinary: Denies: no symptoms, burning, discharge, frequency, flank pain, hematuria, incontinence, pain, urgency, other Neurologic/Psychiatric: Denies: no symptoms, anxiety, depressed, emotional problems, headache, numbness, paresthesia, pre-existing deficit, seizure, tingling, tremors, weakness, other Hematologic/Lymphatic: Denies: no symptoms, anemia, easy bleeding, easy bruising, adenopathy, other Allergies: Coded Allergies: PENICILLINS (Verified Allergy, Unknown, 03/21/19) Subjective 03/24: pt confused, has restraints on. 03/25:PICC line 1 port clogged. 03/26: pt on hep gtt. 03/28: no events noted, no bleeding, hgb stable, on eliquis to be started today Objective Objective Current Medications Medications (Trade) Dose Ordered Sig/Stephani Route PRN Reason Start Time Stop Time Status Last Admin Dose Admin Acetaminophen (Tylenol) 500 mg Q4H PRN ORAL Mild Pain/Temp > 100.5 03/22/19 18:27 04/21/19 18:26 Amlodipine Besylate (Norvasc) 5 mg DAILY ORAL 03/26/19 15:30 04/25/19 15:29 03/27/19 08:13 Bisacodyl (Dulcolax) 10 mg DAILYPRN PRN RECTAL Constipation 03/25/19 19:15 04/24/19 19:14 Cefepime HCl 1 gm/ Dextrose 55 ml @ 110 mls/hr EVERY 12 HOURS IVPB 03/22/19 21:00 03/29/19 08:59 03/27/19 21:00 Chlorhexidine Gluconate (Yesi-Hex 2%) 1 applic DAILY@2000 TOPIC 03/27/19 20:00 04/26/19 19:59 Dextrose (Dextrose 50%) 25 ml Q30M PRN IV Hypoglycemia 03/23/19 13:00 04/22/19 12:59 Dextrose (Dextrose 50%) 50 ml Q30M PRN IV Hypoglycemia 03/23/19 13:04 04/22/19 13:03 Docusate Sodium (Colace) 100 mg TID ORAL 03/27/19 13:00 04/24/19 08:59 03/27/19 16:53 Heparin Sodium/ Dextrose 500 ml @ 21.228 mls/ hr ADJUST PER PROTOCOL IV 03/27/19 16:00 04/26/19 15:59 03/27/19 20:56 Insulin Aspart (NovoLOG) BEFORE MEALS AND HS SUBQ 03/23/19 16:30 04/22/19 16:29 03/27/19 21:20 Iopamidol (Isovue-300 100ml) 100 ml NOW PRN INJ Radiology Procedure 03/23/19 14:00 04/22/19 13:59 Polyethylene Glycol (Miralax) 17 gm BEDTIME ORAL 03/25/19 21:00 04/24/19 20:59 03/27/19 20:09 Last 24 Hour Vital Signs Date Time Temp Pulse Resp B/P (MAP) Pulse Ox O2 Delivery O2 Flow Rate FiO2 03/28/19 08:00 98.0 105 20 160/99 (119) 94 03/28/19 04:00 97.4 87 20 120/64 (82) 99 03/28/19 00:00 97.4 104 18 158/77 (104) 97 03/27/19 21:00 Room Air 03/27/19 20:00 97.2 109 20 137/88 (104) 96 03/27/19 16:00 97.4 103 18 126/81 (96) 94 03/27/19 11:45 98.0 91 18 145/79 (101) 96 03/27/19 09:00 Room Air 03/27/19 08:13 106 155/88 03/27/19 08:00 97.8 106 18 155/88 (110) 98 03/27/19 04:00 97.5 100 18 167/97 (120) 98 03/27/19 00:00 98.0 101 16 133/99 (110) 94 03/26/19 20:20 Room Air 03/26/19 20:00 98.5 116 18 144/91 (108) 93 03/26/19 16:00 97.7 100 20 138/87 (104) 94 03/26/19 15:30 100 138/87 03/26/19 12:00 97.7 102 18 130/86 (101) 94 Intake and Output 03/27/19 03/28/19 19:00 07:00 Intake Total 620 ml 327.280 ml Output Total 800 ml 300 ml Balance -180 ml 27.280 ml Intake Oral 620 ml IV Total 327.280 ml Output Urine Total 800 ml 300 ml Labs Test 03/25/19 20:40 03/26/19 05:35 03/27/19 05:30 03/27/19 12:35 White Blood Count 12.8 K/UL (4.8-10.8) 13.3 K/UL (4.8-10.8) 12.2 K/UL (4.8-10.8) Red Blood Count 3.33 M/UL (4.70-6.10) 3.36 M/UL (4.70-6.10) 3.32 M/UL (4.70-6.10) Hemoglobin 8.8 G/DL (14.2-18.0) 8.9 G/DL (14.2-18.0) 8.7 G/DL (14.2-18.0) Hematocrit 28.4 % (42.0-52.0) 29.4 % (42.0-52.0) 28.8 % (42.0-52.0) Mean Corpuscular Volume 85 FL (80-99) 88 FL (80-99) 87 FL (80-99) Mean Corpuscular Hemoglobin 26.4 PG (27.0-31.0) 26.5 PG (27.0-31.0) 26.4 PG (27.0-31.0) Mean Corpuscular Hemoglobin Concent 31.0 G/DL (32.0-36.0) 30.3 G/DL (32.0-36.0) 30.3 G/DL (32.0-36.0) Red Cell Distribution Width 17.4 % (11.6-14.8) 18.0 % (11.6-14.8) 18.1 % (11.6-14.8) Platelet Count 584 K/UL (150-450) 535 K/UL (150-450) 580 K/UL (150-450) Mean Platelet Volume 4.9 FL (6.5-10.1) 4.6 FL (6.5-10.1) 5.1 FL (6.5-10.1) Neutrophils (%) (Auto) 86.5 % (45.0-75.0) % (45.0-75.0) % (45.0-75.0) Lymphocytes (%) (Auto) 6.6 % (20.0-45.0) % (20.0-45.0) % (20.0-45.0) Monocytes (%) (Auto) 6.0 % (1.0-10.0) % (1.0-10.0) % (1.0-10.0) Eosinophils (%) (Auto) 0.3 % (0.0-3.0) % (0.0-3.0) % (0.0-3.0) Basophils (%) (Auto) 0.6 % (0.0-2.0) % (0.0-2.0) % (0.0-2.0) Activated Partial Thromboplast Time 24 SEC (23-33) 89 SEC (23-33) 99 SEC (23-33) Differential Total Cells Counted 100 Neutrophils % (Manual) 80 % (45-75) Lymphocytes % (Manual) 6 % (20-45) Monocytes % (Manual) 8 % (1-10) Eosinophils % (Manual) 1 % (0-3) Basophils % (Manual) 0 % (0-2) Band Neutrophils 5 % (0-8) Platelet Estimate Increased Platelet Morphology Normal Hypochromasia 1+ Anisocytosis 1+ Sodium Level 140 MMOL/L (136-145) 142 MMOL/L (136-145) Potassium Level 3.9 MMOL/L (3.5-5.1) 3.3 MMOL/L (3.5-5.1) Chloride Level 105 MMOL/L (98-107) 106 MMOL/L (98-107) Carbon Dioxide Level 27 MMOL/L (21-32) 27 MMOL/L (21-32) Anion Gap 8 mmol/L (5-15) 10 mmol/L (5-15) Blood Urea Nitrogen 9 mg/dL (7-18) 8 mg/dL (7-18) Creatinine 0.5 MG/DL (0.55-1.30) 0.6 MG/DL (0.55-1.30) Estimat Glomerular Filtration Rate > 60 mL/min (>60) > 60 mL/min (>60) Glucose Level 112 MG/DL (74-106) 96 MG/DL (74-106) Calcium Level 9.1 MG/DL (8.5-10.1) 9.1 MG/DL (8.5-10.1) Test 03/27/19 14:45 03/27/19 22:00 03/28/19 04:02 Activated Partial Thromboplast Time 108 SEC (23-33) 66 SEC (23-33) 81 SEC (23-33) White Blood Count 14.0 K/UL (4.8-10.8) Red Blood Count 3.35 M/UL (4.70-6.10) Hemoglobin 8.8 G/DL (14.2-18.0) Hematocrit 28.7 % (42.0-52.0) Mean Corpuscular Volume 86 FL (80-99) Mean Corpuscular Hemoglobin 26.3 PG (27.0-31.0) Mean Corpuscular Hemoglobin Concent 30.7 G/DL (32.0-36.0) Red Cell Distribution Width 18.1 % (11.6-14.8) Platelet Count 594 K/UL (150-450) Mean Platelet Volume 5.2 FL (6.5-10.1) Neutrophils (%) (Auto) % (45.0-75.0) Lymphocytes (%) (Auto) % (20.0-45.0) Monocytes (%) (Auto) % (1.0-10.0) Eosinophils (%) (Auto) % (0.0-3.0) Basophils (%) (Auto) % (0.0-2.0) Sodium Level 143 MMOL/L (136-145) Potassium Level 3.5 MMOL/L (3.5-5.1) Chloride Level 106 MMOL/L (98-107) Carbon Dioxide Level 29 MMOL/L (21-32) Anion Gap 8 mmol/L (5-15) Blood Urea Nitrogen 7 mg/dL (7-18) Creatinine 0.6 MG/DL (0.55-1.30) Estimat Glomerular Filtration Rate > 60 mL/min (>60) Glucose Level 100 MG/DL (74-106) Calcium Level 9.1 MG/DL (8.5-10.1) Height (Feet): 5 Height (Inches): 8.00 Weight (Pounds): 180 Objective General Appearance: well appearing, no apparent distress, alert Head: normocephalic EENT: PERRL/EOMI, normal ENT inspection Neck: supple Respiratory: normal breath sounds, no respiratory distress CV: normal rate GI: normal inspection, non tender, soft, normal bowel sounds, non-distended : deferred Musculoskeletal: normal inspection, back normal Neurologic: alert, responsive Lymphatic: normal inspection, no adenopathy Kleynberg,Kevin L. MD Mar 28, 2019 09:17
--- NOTE | 2019-03-28 10:00 | NUR ---
NURSE NOTES: RN attempted to reposition pt. Pt stating "no", attempting to bite. RN able to reposition slightly.
--- NOTE | 2019-03-28 10:26 | GI Progress Note ---
Assessment/Plan Problems: (1) Anemia ICD Codes: D64.9 - Anemia, unspecified SNOMED: 640818683 Qualifiers: Qualified Codes: D64.9 - Anemia, unspecified (2) GI bleed ICD Codes: K92.2 - Gastrointestinal hemorrhage, unspecified SNOMED: 03721914 Qualifiers: Qualified Codes: K92.2 - Gastrointestinal hemorrhage, unspecified (3) Hematuria ICD Codes: R31.9 - Hematuria, unspecified SNOMED: 40618385 Status: stable Status Narrative Discussed with Dr. Baron. Assessment/Plan Speech therapy evaluation noted, patient placed on pure and nectar thick diet POLST reviewed Anemia secondary to hematuria stable H&H OB stool collected, pending final read hepatitis panel negative Conservative management monitor H&H, prn transfusions bowel regimen, fleets x1 ppi fu labs will consider GI procedures if needed The patient was seen and examined at bedside and all new and available data was reviewed in the patients chart. I agree with the above findings, impression and plan. (Patient seen earlier today. Signature stamp does not reflect patient encounter time.). - Bronson Baron MD Subjective Subjective limited Objective Last 24 Hour Vital Signs Date Time Temp Pulse Resp B/P (MAP) Pulse Ox O2 Delivery O2 Flow Rate FiO2 03/28/19 09:13 105 160/99 03/28/19 08:00 98.0 105 20 160/99 (119) 94 03/28/19 04:00 97.4 87 20 120/64 (82) 99 03/28/19 00:00 97.4 104 18 158/77 (104) 97 03/27/19 21:00 Room Air 03/27/19 20:00 97.2 109 20 137/88 (104) 96 03/27/19 16:00 97.4 103 18 126/81 (96) 94 03/27/19 11:45 98.0 91 18 145/79 (101) 96 Intake and Output 03/27/19 03/28/19 19:00 07:00 Intake Total 620 ml 327.280 ml Output Total 800 ml 300 ml Balance -180 ml 27.280 ml Intake Oral 620 ml IV Total 327.280 ml Output Urine Total 800 ml 300 ml Laboratory Tests Test 03/27/19 12:35 03/27/19 14:45 03/27/19 22:00 03/28/19 04:02 Stool Occult Blood Pending Activated Partial Thromboplast Time 108 SEC (23-33) H 66 SEC (23-33) H 81 SEC (23-33) H White Blood Count 14.0 K/UL (4.8-10.8) H Red Blood Count 3.35 M/UL (4.70-6.10) L Hemoglobin 8.8 G/DL (14.2-18.0) L Hematocrit 28.7 % (42.0-52.0) L Mean Corpuscular Volume 86 FL (80-99) Mean Corpuscular Hemoglobin 26.3 PG (27.0-31.0) L Mean Corpuscular Hemoglobin Concent 30.7 G/DL (32.0-36.0) L Red Cell Distribution Width 18.1 % (11.6-14.8) H Platelet Count 594 K/UL (150-450) H Mean Platelet Volume 5.2 FL (6.5-10.1) L Neutrophils (%) (Auto) % (45.0-75.0) Lymphocytes (%) (Auto) % (20.0-45.0) Monocytes (%) (Auto) % (1.0-10.0) Eosinophils (%) (Auto) % (0.0-3.0) Basophils (%) (Auto) % (0.0-2.0) Sodium Level 143 MMOL/L (136-145) Potassium Level 3.5 MMOL/L (3.5-5.1) Chloride Level 106 MMOL/L (98-107) Carbon Dioxide Level 29 MMOL/L (21-32) Anion Gap 8 mmol/L (5-15) Blood Urea Nitrogen 7 mg/dL (7-18) Creatinine 0.6 MG/DL (0.55-1.30) Estimat Glomerular Filtration Rate > 60 mL/min (>60) Glucose Level 100 MG/DL (74-106) Calcium Level 9.1 MG/DL (8.5-10.1) Height (Feet): 5 Height (Inches): 8.00 Weight (Pounds): 180 General Appearance: WD/WN, no apparent distress, alert Cardiovascular: normal rate Respiratory/Chest: normal breath sounds, no respiratory distress Abdominal Exam: normal bowel sounds, non tender, soft Extremities: normal range of motion, non-tender Jiang,Alivia-Darrell CONCIERGE MANAGER Mar 28, 2019 10:26
--- NOTE | 2019-03-28 11:54 | Infectious Diseases Prog Note ---
Assessment/Plan Assessment/Plan IMPRESSION: 1. Sepsis with leukocytosis, tachycardia, lactic acidosis. 2. Pseudomonas UTI. 3. Right-sided pleural effusion or atelectasis, may have underlying pneumonia, . 4. Diabetes mellitus. 5. Hypertension. 6. Severe anemia. 7. Metastatic lung cancer RECOMMENDATION: Continue with cefepime until tomorrow Subjective ROS Limited/Unobtainable: Yes Neurologic: Reports: confusion, other - on restraint Allergies: Coded Allergies: PENICILLINS (Verified Allergy, Unknown, 03/21/19) Objective Vital Signs Last 24 Hour Vital Signs Date Time Temp Pulse Resp B/P (MAP) Pulse Ox O2 Delivery O2 Flow Rate FiO2 03/28/19 09:13 105 160/99 03/28/19 09:00 Room Air 03/28/19 08:00 98.0 105 20 160/99 (119) 94 03/28/19 04:00 97.4 87 20 120/64 (82) 99 03/28/19 00:00 97.4 104 18 158/77 (104) 97 03/27/19 21:00 Room Air 03/27/19 20:00 97.2 109 20 137/88 (104) 96 03/27/19 16:00 97.4 103 18 126/81 (96) 94 Height (Feet): 5 Height (Inches): 8.00 Weight (Pounds): 180 General Appearance: no acute distress HEENT: mucous membranes moist Respiratory/Chest: lungs clear Cardiovascular: normal rate Abdomen: soft, non tender Extremities: no edema Neurologic/Psychiatric: disoriented Laboratory Tests Test 03/27/19 12:35 03/27/19 14:45 03/27/19 22:00 03/28/19 04:02 Stool Occult Blood Pending Activated Partial Thromboplast Time 108 SEC (23-33) H 66 SEC (23-33) H 81 SEC (23-33) H White Blood Count 14.0 K/UL (4.8-10.8) H Red Blood Count 3.35 M/UL (4.70-6.10) L Hemoglobin 8.8 G/DL (14.2-18.0) L Hematocrit 28.7 % (42.0-52.0) L Mean Corpuscular Volume 86 FL (80-99) Mean Corpuscular Hemoglobin 26.3 PG (27.0-31.0) L Mean Corpuscular Hemoglobin Concent 30.7 G/DL (32.0-36.0) L Red Cell Distribution Width 18.1 % (11.6-14.8) H Platelet Count 594 K/UL (150-450) H Mean Platelet Volume 5.2 FL (6.5-10.1) L Neutrophils (%) (Auto) % (45.0-75.0) Lymphocytes (%) (Auto) % (20.0-45.0) Monocytes (%) (Auto) % (1.0-10.0) Eosinophils (%) (Auto) % (0.0-3.0) Basophils (%) (Auto) % (0.0-2.0) Sodium Level 143 MMOL/L (136-145) Potassium Level 3.5 MMOL/L (3.5-5.1) Chloride Level 106 MMOL/L (98-107) Carbon Dioxide Level 29 MMOL/L (21-32) Anion Gap 8 mmol/L (5-15) Blood Urea Nitrogen 7 mg/dL (7-18) Creatinine 0.6 MG/DL (0.55-1.30) Estimat Glomerular Filtration Rate > 60 mL/min (>60) Glucose Level 100 MG/DL (74-106) Calcium Level 9.1 MG/DL (8.5-10.1) Current Medications Medications (Trade) Dose Ordered Sig/Stephani Route PRN Reason Start Time Stop Time Status Last Admin Dose Admin Acetaminophen (Tylenol) 500 mg Q4H PRN ORAL Mild Pain/Temp > 100.5 03/22/19 18:27 04/21/19 18:26 Amlodipine Besylate (Norvasc) 5 mg DAILY ORAL 03/26/19 15:30 04/25/19 15:29 03/28/19 09:13 Apixaban (Eliquis) 5 mg BID ORAL 03/28/19 18:00 04/27/19 17:59 Bisacodyl (Dulcolax) 10 mg DAILYPRN PRN RECTAL Constipation 03/25/19 19:15 04/24/19 19:14 Cefepime HCl 1 gm/ Dextrose 55 ml @ 110 mls/hr EVERY 12 HOURS IVPB 03/22/19 21:00 03/29/19 08:59 03/28/19 09:13 Chlorhexidine Gluconate (Yesi-Hex 2%) 1 applic DAILY@2000 TOPIC 03/27/19 20:00 04/26/19 19:59 Dextrose (Dextrose 50%) 25 ml Q30M PRN IV Hypoglycemia 03/23/19 13:00 04/22/19 12:59 Dextrose (Dextrose 50%) 50 ml Q30M PRN IV Hypoglycemia 03/23/19 13:04 04/22/19 13:03 Docusate Sodium (Colace) 100 mg TID ORAL 03/27/19 13:00 04/24/19 08:59 03/27/19 16:53 Insulin Aspart (NovoLOG) BEFORE MEALS AND HS SUBQ 03/23/19 16:30 04/22/19 16:29 03/27/19 21:20 Iopamidol (Isovue-300 100ml) 100 ml NOW PRN INJ Radiology Procedure 03/23/19 14:00 04/22/19 13:59 Polyethylene Glycol (Miralax) 17 gm BEDTIME ORAL 03/25/19 21:00 04/24/19 20:59 03/27/19 20:09 Juan Pablo Beaulieu MD Mar 28, 2019 11:54
[2019-03-28 12:00] VITALS: BP 145/91
--- NOTE | 2019-03-28 12:56 | NUR ---
SWALLOW/SPEECH THERAPY NOTE: SWALLOW STATUS: PATIENT ALERT ONLY WITH MAX CUES. NOT RECEPTIVE TO PO TRIALS NOR HIS LUNCH. PATIENT'S GOALS OF INTAKE NOT MET AND ONLY AT 0/10/25/OR 50%. ON LIST FOR MODIFIED BARIUM SWALLOW STUDY BUT MAY REFUSE IF HE IS NOT TAKING MUCH PO. GOALS MET FOR STAFF (SANJAY MARSHALL AND MARIO MADRID) EDUCATED/TRAINED IN POSTED ASPIRATION PRECAUTIONS BUT PT IS NOT RECEPTIVE TO MUCH PO INTAKE. SPOKE WITH ROVERTO, HIS DAUGHTER, WHO WANTS HIM TO BE GIVEN APPETITE STIMULANT LIKE HE RECEIVED AT [facility]. TOLD WOODROW GI RACING MECHANIC WHO WILL TELL RNJULIUS, TO PUT IN ORDER. PATIENT IS ALREADY ON A CALORIE COUNT BUT HIS DTR WOULD LIKE TO TALK TO GI REGARDING RISKS AND BENEFITS OF TUBE FEEDINGS A SUPPLEMENT OR PRIMARY MODE OF NUTRITION AND INTAKE. WOODROW TO CALL HER TOMORROW. WILL ALSO ORDER GLUCERNA CHOCOLATE FLAVOR PER DTR REQUEST. DTR ALSO BRINGING IN HIS FOODS OF PREFERENCE LATER TODAY. PLAN: HOLD ON MOD BARIUM SWALLOW STUDY TODAY SINCE HE IS REJECTING ALL PO INTAKE. CONTINUE WITH CURRENT DIET/LIQ WITH POSTED PRECAUTIONS.
--- NOTE | 2019-03-28 15:00 | NUR ---
NURSE NOTES: Pt's IV self removed. RN attempted to reinsert and was unsuccessful. Tele nurse attempted reinsertion and was unsuccessful. Charge nurse aware. RN left message for Dr. Wilkins.
--- NOTE | 2019-03-28 15:36 | NUR ---
NURSE NOTES: Pt refused food / snacks. AIRPLANE FLIGHT ATTENDANT SUPERVISOR Darrell aware.
[2019-03-28 16:00] VITALS: BP 154/91
[2019-03-28] MEDS: Dronabinol 2.5mg Cap ORAL SCH (17:56)
[2019-03-28] MEDS: Eliquis 5mg tablet ORAL SCH (17:57)
--- NOTE | 2019-03-28 18:09 | NUR ---
NURSE NOTES: Pt's daughter brought in chicken sandwich. Pt ate 100%; pt's daughter then notified RN. RN educated pt's daughter on aspiration precautions and nectar thick liquids. Pt's daughter verbalized understanding. RN updated Darrell PATEL.
--- NOTE | 2019-03-28 18:39 | NUR ---
NURSE NOTES: Pt unable to comprehend the need to reposition in bed. Pt states "no" and attempts to hit and bite nurse. RN able to reposition slightly during the day. Pt re-repositions himself in supine.
--- NOTE | 2019-03-28 19:15 | NUR ---
HAND-OFF: Report given to MARIO Espinoza.
[2019-03-28 20:00] VITALS: BP 125/64
[2019-03-28] MEDS: Dyna-Hex 2% Top Sol 2oz TOPIC SCH (20:00)
--- NOTE | 2019-03-28 22:25 | NUR ---
NURSE NOTES: Unable to get IV access due to swollen bilateral arm. Notified Dr. Christofer Fragoso Obtained order of stop Cefepime.
[2019-03-28] MEDS: Miralax 17gm pkt ORAL SCH (22:34)
--- NOTE | 2019-03-28 22:38 | General Progress Note ---
Assessment/Plan Status: stable Assessment/Plan: 68 year old male with PMH of malignant brain tumor, anemia, NIDDM, COPD, BPH, history of UTI, hypertension admitted for severe anemia, sepsis, GI bleed, lung cancer, UTI. #Sepsis 2/2 pseudomonas UTI -cont cefepime per ID -ID consult appreciated -CTM #Severe anemia likely 2/2 GI source and IDRIS -Gi Consult appreciated, FOBT pending. -Venofer started -Hematology consult aprpeciated -Hb acceptable s/p transfusion - #Diabetes mellitus -ISS -carb controlled feeding -can add lantus if needed -FSG QAC and hs #Hypertension -BP better control -home meds -Norvasc 10mg ( started 03/26 as SBP in the 150 noted ) and lisinopril 20mg #BPH -cont flomax #Metastatic lung cancer Code: DNAR Subjective Date patient seen: Mar 28, 2019 Allergies: Coded Allergies: PENICILLINS (Verified Allergy, Unknown, 03/21/19) Subjective No acute overnight events, HR improved, Hypernatremia improved, family wants to discuss PEG placement, called no answer, will try again in AM Objective Last 24 Hour Vital Signs Date Time Temp Pulse Resp B/P (MAP) Pulse Ox O2 Delivery O2 Flow Rate FiO2 03/28/19 16:00 97.9 107 20 154/91 (112) 96 03/28/19 12:00 98.1 98 20 145/91 (109) 95 03/28/19 09:13 105 160/99 03/28/19 09:00 Room Air 03/28/19 08:00 98.0 105 20 160/99 (119) 94 03/28/19 04:00 97.4 87 20 120/64 (82) 99 03/28/19 00:00 97.4 104 18 158/77 (104) 97 Intake and Output 03/27/19 03/28/19 18:59 06:59 Intake Total 620 ml 327.280 ml Output Total 800 ml 300 ml Balance -180 ml 27.280 ml Intake Oral 620 ml IV Total 327.280 ml Output Urine Total 800 ml 300 ml Laboratory Tests 03/28/19 04:02: White Blood Count 14.0H, Red Blood Count 3.35L, Hemoglobin 8.8L, Hematocrit 28.7L, Mean Corpuscular Volume 86, Mean Corpuscular Hemoglobin 26.3L, Mean Corpuscular Hemoglobin Concent 30.7L, Red Cell Distribution Width 18.1H, Platelet Count 594H, Mean Platelet Volume 5.2L, Neutrophils (%) (Auto) , Lymphocytes (%) (Auto) , Monocytes (%) (Auto) , Eosinophils (%) (Auto) , Basophils (%) (Auto) , Activated Partial Thromboplast Time 81H, Sodium Level 143 , Potassium Level 3.5, Chloride Level 106, Carbon Dioxide Level 29, Anion Gap 8 , Blood Urea Nitrogen 7, Creatinine 0.6, Estimat Glomerular Filtration Rate > 60 , Glucose Level 100, Calcium Level 9.1 03/28/19 16:45: Stool Occult Blood [Pending] Height (Feet): 5 Height (Inches): 8.00 Weight (Pounds): 180 Objective General Appearance: WD/WN EENT: PERRL/EOMI Neck: non-tender Cardiovascular: normal peripheral pulses, normal rate, regular rhythm Respiratory/Chest: chest wall non-tender, lungs clear, normal breath sounds Abdomen: normal bowel sounds, non tender Extremities: normal range of motion Neurologic: business relations manager II-XII grossly normal Natalie Wilkins MD Mar 28, 2019 22:38
--- NOTE | 2019-03-28 22:46 | NUR ---
NURSE NOTES: Notified Dr. Newman regarding bilateral arm swelling, especially left arm swelling. Explained previous Venous sampling. No new order at this time. Will continue to monitor.
[2019-03-29] VITALS: BP 130/66
[2019-03-29 04:00] VITALS: BP 143/77
[2019-03-29] MEDS: NovoLOG Insulin Flexpen SUBQ SCH ×2 (06:10→11:30)
--- NOTE | 2019-03-29 07:30 | NUR ---
HAND-OFF: Report given to Naa Chaparro RN.
--- NOTE | 2019-03-29 07:55 | NUR ---
NURSE NOTES: Received pt from MARIO Espinoza. Pt sleeping. Bilateral soft wrist restraints on. No redness and pulse present. Still with pitting edema on right hand. Elevated with pillow. No distress/pain noted. Bed in the lowest position. Alarm on. Call light within reach. Will continue to monitor.
[2019-03-29 08:00] VITALS: BP 128/62
[2019-03-29 08:53] LABS: HEMATOCRIT 28.4 % (42.0-52.0); HEMOGLOBIN 8.5 G/DL (14.2-18.0); MEAN CORPUSCULAR VOLUME 88 FL (80-99); PLATELET COUNT 605 K/UL (150-450); RED BLOOD COUNT 3.23 M/UL (4.70-6.10); RED CELL DISTRIBUTION WIDTH 18.8 % (11.6-14.8); WHITE BLOOD COUNT 14.6 K/UL (4.8-10.8)
[2019-03-29 09:17] LABS: ANION GAP 7 mmol/L (5-15); BLOOD UREA NITROGEN 8 mg/dL (7-18); CARBON DIOXIDE 29 MMOL/L (21-32); CHLORIDE 105 MMOL/L (98-107); CREATININE 0.5 MG/DL (0.55-1.30); POTASSIUM 3.3 MMOL/L (3.5-5.1); SODIUM 141 MMOL/L (136-145)
[2019-03-29] MEDS: Dronabinol 2.5mg Cap ORAL SCH (09:27)
[2019-03-29] MEDS: Docusate 100mg/10ml Liq ORAL SCH (09:27)
[2019-03-29 09:29] VITALS: BP 128/62
[2019-03-29] MEDS: Eliquis 5mg tablet ORAL SCH (09:29)
--- NOTE | 2019-03-29 10:47 | Discharge Summary ---
Discharge Summary Hospital Course Date of Admission Mar 21, 2019 at 14:31 Date of Discharge Admitting Diagnosis sepsis HPI Walt Alanis is a 68 year old male who was admitted on Mar 21, 2019 at 14:31 for Sepsis Hospital Course 68 year old male with PMH of malignant brain tumor, anemia, NIDDM, COPD, BPH, history of UTI, hypertension admitted for severe anemia, sepsis, GI bleed, lung cancer, UTI. #Sepsis 2/2 pseudomonas UTI -cont cefepime per ID -ID consult appreciated -CTM #Severe anemia likely 2/2 GI source and IDRIS -Gi Consult appreciated, FOBT pending. -Venofer started -Hematology consult aprpeciated -Hb acceptable s/p transfusion - #Diabetes mellitus -ISS -carb controlled feeding -can add lantus if needed -FSG QAC and hs #Hypertension -BP better control -home meds -Norvasc 10mg ( started 03/26 as SBP in the 150 noted ) and lisinopril 20mg #BPH -cont flomax #Metastatic lung cancer Code: DNAR Discharge Discharge Disposition Patient was discharged to Natalie Wilkins MD Mar 29, 2019 10:47
--- NOTE | 2019-03-29 11:10 | GI Progress Note ---
Assessment/Plan Problems: (1) Anemia ICD Codes: D64.9 - Anemia, unspecified SNOMED: 281891449 Qualifiers: Qualified Codes: D64.9 - Anemia, unspecified (2) GI bleed ICD Codes: K92.2 - Gastrointestinal hemorrhage, unspecified SNOMED: 67541352 Qualifiers: Qualified Codes: K92.2 - Gastrointestinal hemorrhage, unspecified (3) Hematuria ICD Codes: R31.9 - Hematuria, unspecified SNOMED: 81557266 Status: stable Status Narrative Discussed with Dr. Baron. Assessment/Plan Speech therapy evaluation noted, patient placed on pure and nectar thick diet POLST reviewed Anemia secondary to hematuria stable H&H OB stool collected, pending final read hepatitis panel negative daughter brought in a chicken sandwich yesterday in which patient tolerated okay for DC per GI standpoint Conservative management monitor H&H, prn transfusions bowel regimen ppi fu labs will consider GI procedures if needed The patient was seen and examined at bedside and all new and available data was reviewed in the patients chart. I agree with the above findings, impression and plan. (Patient seen earlier today. Signature stamp does not reflect patient encounter time.). - Bronson Baron MD Subjective Gastrointestinal/Abdominal: Reports: no symptoms Subjective limited Objective Last 24 Hour Vital Signs Date Time Temp Pulse Resp B/P (MAP) Pulse Ox O2 Delivery O2 Flow Rate FiO2 03/29/19 09:29 99 128/62 03/29/19 09:00 Room Air 03/29/19 08:00 98.4 99 19 128/62 (84) 98 03/29/19 04:00 98.4 98 18 143/77 (99) 95 03/29/19 00:00 98.1 91 20 130/66 (87) 96 03/28/19 21:00 Room Air 03/28/19 20:00 98.6 103 18 125/64 (84) 97 03/28/19 16:00 97.9 107 20 154/91 (112) 96 03/28/19 12:00 98.1 98 20 145/91 (109) 95 Intake and Output 03/28/19 03/29/19 19:00 07:00 Intake Total 120 ml Output Total 300 ml 600 ml Balance -180 ml -600 ml Intake Oral 120 ml Output Urine Total 300 ml 600 ml # Voids 2 # Bowel Movements 1 Laboratory Tests Test 03/28/19 16:45 03/29/19 08:25 Stool Occult Blood Pending White Blood Count 14.6 K/UL (4.8-10.8) H Red Blood Count 3.23 M/UL (4.70-6.10) L Hemoglobin 8.5 G/DL (14.2-18.0) L Hematocrit 28.4 % (42.0-52.0) L Mean Corpuscular Volume 88 FL (80-99) Mean Corpuscular Hemoglobin 26.3 PG (27.0-31.0) L Mean Corpuscular Hemoglobin Concent 29.9 G/DL (32.0-36.0) L Red Cell Distribution Width 18.8 % (11.6-14.8) H Platelet Count 605 K/UL (150-450) H Mean Platelet Volume 5.3 FL (6.5-10.1) L Neutrophils (%) (Auto) % (45.0-75.0) Lymphocytes (%) (Auto) % (20.0-45.0) Monocytes (%) (Auto) % (1.0-10.0) Eosinophils (%) (Auto) % (0.0-3.0) Basophils (%) (Auto) % (0.0-2.0) Differential Total Cells Counted 100 Neutrophils % (Manual) 87 % (45-75) H Lymphocytes % (Manual) 5 % (20-45) L Monocytes % (Manual) 7 % (1-10) Eosinophils % (Manual) 1 % (0-3) Basophils % (Manual) 0 % (0-2) Band Neutrophils 0 % (0-8) Platelet Estimate Decreased L Platelet Morphology Normal Hypochromasia 2+ Anisocytosis 2+ Sodium Level 141 MMOL/L (136-145) Potassium Level 3.3 MMOL/L (3.5-5.1) L Chloride Level 105 MMOL/L (98-107) Carbon Dioxide Level 29 MMOL/L (21-32) Anion Gap 7 mmol/L (5-15) Blood Urea Nitrogen 8 mg/dL (7-18) Creatinine 0.5 MG/DL (0.55-1.30) L Estimat Glomerular Filtration Rate > 60 mL/min (>60) Glucose Level 96 MG/DL (74-106) Calcium Level 9.0 MG/DL (8.5-10.1) Height (Feet): 5 Height (Inches): 8.00 Weight (Pounds): 141 General Appearance: WD/WN, no apparent distress, alert Cardiovascular: normal rate Respiratory/Chest: normal breath sounds, no respiratory distress Abdominal Exam: normal bowel sounds, non tender, soft Extremities: normal range of motion, non-tender Luis Angel Jiang NP Mar 29, 2019 11:10
--- NOTE | 2019-03-29 11:22 | NUR ---
DISCHARGE DISPOSITION: PLEASE READ PATIENT TO BE DISCHARGED TO [facility] [id number] T: [phone]>> CALL FOR REPORT [facility] ETA 133 DAUGHTER ROVERTO STYLES IS AWARE AND AGREEABLE TO DCP
--- NOTE | 2019-03-29 11:51 | NUR ---
NURSE NOTES: D/C bilateral wrist restraints order from Dr. Wilkins since pt doesn't have IV access. Skin assessments done. Pulse present. No redness. No skin break
--- NOTE | 2019-03-29 12:05 | NUR ---
DISCHARGE SWALLOW/SPEECH THERAPY SUMMARY: PATIENT SEEN FOR DYSPHAGIA, SEE SWALLOW EVALUATION REPORT. PATIENT DISLIKED DIET HE WAS ON AND FAMILY BROUGHT IN A SOFT CHICKEN SANDWICH AND APPARENTLY ATE IT W/O OVERT PROBLEMS. PATIENT HAS BEEN REFUSING HIS DOWNGRADED DIET OF PUREED AND NECTAR THICK LIQUIDS SO IF HE WANTS AN UPGRADE AND HE IS SUPERVISED, PLEASE SEND HIM THE LEAST RESTRICTIVE DIET. GOALS MET FOR INTAKE WITH SOFT CHEW DIET. (PER GI SIGNALS COLLECTION TECHNICIAN WOODROW, HE ASKED FOR THE DIET TO BE ADVANCED TO SOFT/CHEW) GOALS MET FOR STAFF EDUCATED/TRAINED IN POSTED ASPIRATION PRECAUTIONS. PLAN: F/UP WITH PRIMARY CARE SALES REPRESENTATIVE AT SNF TO ASSESS NEED FOR NECTAR THICK LIQUIDS VIA MOD BARIUM SWALLOW STUDY OP IF POSSIBLE (NOT [place] [facility] [place] CONTINUE WITH SOFT CHEW DIET ONLY IF PRIMARY CARE SALES REPRESENTATIVE AT SNF AGREES AND IF PATIENT IS SUPERVISED.
--- NOTE | 2019-03-29 12:28 | Infectious Diseases Prog Note ---
Assessment/Plan Assessment/Plan IMPRESSION: 1. Sepsis with leukocytosis, tachycardia, lactic acidosis.treated 2. Pseudomonas UTI.treated 3. Right-sided pleural effusion or atelectasis, may have underlying pneumonia, . 4. Diabetes mellitus. 5. Hypertension. 6. Severe anemia. 7. Metastatic lung cancer RECOMMENDATION: Observe off of antibiotic agree with discharge Subjective ROS Limited/Unobtainable: Yes Constitutional: Denies: fever Respiratory: Reports: no symptoms Allergies: Coded Allergies: PENICILLINS (Verified Allergy, Unknown, 03/21/19) Objective Vital Signs Last 24 Hour Vital Signs Date Time Temp Pulse Resp B/P (MAP) Pulse Ox O2 Delivery O2 Flow Rate FiO2 03/29/19 09:29 99 128/62 03/29/19 09:00 Room Air 03/29/19 08:00 98.4 99 19 128/62 (84) 98 03/29/19 04:00 98.4 98 18 143/77 (99) 95 03/29/19 00:00 98.1 91 20 130/66 (87) 96 03/28/19 21:00 Room Air 03/28/19 20:00 98.6 103 18 125/64 (84) 97 03/28/19 16:00 97.9 107 20 154/91 (112) 96 Height (Feet): 5 Height (Inches): 8.00 Weight (Pounds): 141 General Appearance: no acute distress HEENT: mucous membranes moist Respiratory/Chest: lungs clear Cardiovascular: normal rate Abdomen: soft, non tender Extremities: no edema Neurologic/Psychiatric: alert, responsive Laboratory Tests Test 03/28/19 16:45 03/29/19 08:25 Stool Occult Blood Positive (NEGATIVE) White Blood Count 14.6 K/UL (4.8-10.8) H Red Blood Count 3.23 M/UL (4.70-6.10) L Hemoglobin 8.5 G/DL (14.2-18.0) L Hematocrit 28.4 % (42.0-52.0) L Mean Corpuscular Volume 88 FL (80-99) Mean Corpuscular Hemoglobin 26.3 PG (27.0-31.0) L Mean Corpuscular Hemoglobin Concent 29.9 G/DL (32.0-36.0) L Red Cell Distribution Width 18.8 % (11.6-14.8) H Platelet Count 605 K/UL (150-450) H Mean Platelet Volume 5.3 FL (6.5-10.1) L Neutrophils (%) (Auto) % (45.0-75.0) Lymphocytes (%) (Auto) % (20.0-45.0) Monocytes (%) (Auto) % (1.0-10.0) Eosinophils (%) (Auto) % (0.0-3.0) Basophils (%) (Auto) % (0.0-2.0) Differential Total Cells Counted 100 Neutrophils % (Manual) 87 % (45-75) H Lymphocytes % (Manual) 5 % (20-45) L Monocytes % (Manual) 7 % (1-10) Eosinophils % (Manual) 1 % (0-3) Basophils % (Manual) 0 % (0-2) Band Neutrophils 0 % (0-8) Platelet Estimate Decreased L Platelet Morphology Normal Hypochromasia 2+ Anisocytosis 2+ Sodium Level 141 MMOL/L (136-145) Potassium Level 3.3 MMOL/L (3.5-5.1) L Chloride Level 105 MMOL/L (98-107) Carbon Dioxide Level 29 MMOL/L (21-32) Anion Gap 7 mmol/L (5-15) Blood Urea Nitrogen 8 mg/dL (7-18) Creatinine 0.5 MG/DL (0.55-1.30) L Estimat Glomerular Filtration Rate > 60 mL/min (>60) Glucose Level 96 MG/DL (74-106) Calcium Level 9.0 MG/DL (8.5-10.1) Current Medications Medications (Trade) Dose Ordered Sig/Stephani Route PRN Reason Start Time Stop Time Status Last Admin Dose Admin Acetaminophen (Tylenol) 500 mg Q4H PRN ORAL Mild Pain/Temp > 100.5 03/22/19 18:27 04/21/19 18:26 Amlodipine Besylate (Norvasc) 5 mg DAILY ORAL 03/26/19 15:30 04/25/19 15:29 03/29/19 09:29 Apixaban (Eliquis) 5 mg BID ORAL 03/28/19 18:00 04/27/19 17:59 03/29/19 09:29 Bisacodyl (Dulcolax) 10 mg DAILYPRN PRN RECTAL Constipation 03/25/19 19:15 04/24/19 19:14 Chlorhexidine Gluconate (Yesi-Hex 2%) 1 applic DAILY@2000 TOPIC 03/27/19 20:00 04/26/19 19:59 Dextrose (Dextrose 50%) 25 ml Q30M PRN IV Hypoglycemia 03/23/19 13:00 04/22/19 12:59 Dextrose (Dextrose 50%) 50 ml Q30M PRN IV Hypoglycemia 03/23/19 13:04 04/22/19 13:03 Docusate Sodium (Colace) 100 mg TID ORAL 03/27/19 13:00 04/24/19 08:59 03/29/19 09:27 Dronabinol (Marinol) 2.5 mg TID ORAL 03/28/19 18:00 04/27/19 17:59 03/29/19 09:27 Insulin Aspart (NovoLOG) BEFORE MEALS AND HS SUBQ 03/23/19 16:30 04/22/19 16:29 03/28/19 17:58 Iopamidol (Isovue-300 100ml) 100 ml NOW PRN INJ Radiology Procedure 03/23/19 14:00 04/22/19 13:59 Polyethylene Glycol (Miralax) 17 gm BEDTIME ORAL 03/25/19 21:00 04/24/19 20:59 03/28/19 22:34 Potassium Chloride (K-Dur) 40 meq ONCE ORAL 03/29/19 11:15 03/29/19 12:30 03/29/19 12:00 Juan Pablo Beaulieu MD Mar 29, 2019 12:28
[2019-03-29] MEDS ORDERED: Tubing IV Secondary IV ONE (13:49)
--- NOTE | 2019-03-29 13:49 | NUR ---
NURSE NOTES: Pt discharged to [facility] accompanied by Ambulance personnel. Report was given to MARIO Rosado. Pt has no belongings. No IV and no s/s of infections on the IV removal site. ID band was removed. FC was removed. Vital sign stable. Skin intact and skin care done. Notified Bruna, daughter for discharge. No antibiotic upon discharge per Dr. Wilkins
== END 2019-03-29 13:50 | DRG 871 ==
LOC: EDBD 13:39 → EMR 14:30 → 2E 14:31 → EDBEDREQ 18:55 → 2E 03-22 01:48 → 4E 03-22 19:09
PROC: 30233N1 Transfusion of Nonautologous Red Blood Cells into Peripheral Vein, Percutaneous Approach (ICD-10-PCS; principal; 2019-03-21)
PROC: 05HY33Z Insertion of Infusion Device into Upper Vein, Percutaneous Approach (ICD-10-PCS; principal; 2019-03-21)
DX: A41.9 Sepsis, unspecified organism (principal); J18.9 Pneumonia, unspecified organism; G93.6 Cerebral edema; N39.0 Urinary tract infection, site not specified; K92.2 Gastrointestinal hemorrhage, unspecified; C34.90 Malignant neoplasm of unspecified part of unspecified bronchus or lung; C79.31 Secondary malignant neoplasm of brain; G91.1 Obstructive hydrocephalus; C79.9 Secondary malignant neoplasm of unspecified site; E46 Unspecified protein-calorie malnutrition; Z66 Do not resuscitate; B96.5 Pseudomonas (aeruginosa) (mallei) (pseudomallei) as the cause of diseases classified elsewhere; E11.9 Type 2 diabetes mellitus without complications; Z88.0 Allergy status to penicillin; Z85.118 Personal history of other malignant neoplasm of bronchus and lung; Z86.718 Personal history of other venous thrombosis and embolism; Z85.841 Personal history of malignant neoplasm of brain; D63.8 Anemia in other chronic diseases classified elsewhere; D50.0 Iron deficiency anemia secondary to blood loss (chronic); Z87.891 Personal history of nicotine dependence
CPT/HCPCS: 36415; 36569; 71045; 74177; 76700; 76937; 80048; 80053; 81003; 82270; 82378; 82550; 82607; 82728; 82746; 82962; 83010; 83540; 83550; 83605; 83690; 83735; 83880; 84153; 84439; 84443; 84484; 85007; 85025; 85044; 85060; 85384; 85610; 85730; 86703; 86705; 86709; 86803; 86850; 86900; 86901; 86920; 87040; 87081; 87086; 87181; 87340; 93005; 93970; 93971; 96361; 96365; 96368; 96375; 99291; J1815; J8499

== ENCOUNTER 2019-04-03 12:43 | Inpatient (IN) | payer MEDICARE, MEDICAID ==
[~2019-04-03] VITALS: Ht 165.1 cm; Wt 63.5 kg
[2019-04-03 12:43] VITALS: BP 93/53
[~2019-04-03 12:43] MED LIST: ACETAMINOPHEN325 M1 ORAL; ACETAMINOPHEN500 M5 ORAL; AMLODIPINE BESY10 MG ORAL; BISACODYL10 M1 RC; COLACE100 MG ORAL; CRANBERRY450 M4 PO; CYCLOBENZAPRINE10 MG ORAL; FAMOTIDINE20 MG ORAL; FLOMAX0.4 MG ORAL; LISINOPRIL20 MG ORAL; MELATONIN3 M1 ORAL; MILK OF MA400 MG/51 ORAL; MULTIVITAMINS1 EAC8 ORAL; OXYCODONE HCL20 M1 ORAL; POLYETHYLENE GL17 GM ORAL; PRO-STAT LIQUID30 ML ORAL; SYMLIN600 MCG/1 SUBQ; XARELTO20 MG ORAL; ZOFRAN ODT8 MG ORAL
--- NOTE | 2019-04-03 12:59 | Emergency Room Report ---
History of Present Illness General Chief Complaint: General Complaint Source: Patient Present Illness HPI hx limited secondary to patient's dementia. 68-year-old male history of COPD, hypertension, hyperlipidemia presents with valvular to thrive, patient has not been eating over the past couple of days, no aggravating or alleviating factors, patient was sent here to have a G-tube placed. Patient response to pain, has no apparent complaints. 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 Review of Systems All Other Systems: limited - Could not be obtained Physical Exam Vital Signs Date Time Temp Pulse Resp B/P (MAP) Pulse Ox O2 Delivery O2 Flow Rate FiO2 04/03/19 12:43 98.4 108 20 93/53 (66) 87 Room Air Sp02 EP Interpretation: reviewed, normal General Appearance: no apparent distress, alert, cachetic, Chronically Ill Head: normocephalic, atraumatic Eyes: bilateral eye PERRL, bilateral eye EOMI ENT: uvula midline, dry mucus membranes Neck: supple, thyroid normal, supple/symm/no masses Respiratory: no respiratory distress, no retraction, no accessory muscle use, other - reduced breath sounds on the right side Cardiovascular #1: normal peripheral pulses, no edema, no gallop, no murmur, tachycardia Gastrointestinal: non tender, soft, no guarding, no rebound Musculoskeletal: normal inspection Neurologic: alert, oriented x3 Psychiatric: mood/affect normal Skin: no rash, warm/dry Procedures Critical Care Time Critical Care Time Given the critical condition in which the patient arrived, the patient was immediately assessed by myself and the nurse, and cardiac monitoring initiated due to the potential for rapid decompensation of the patient's clinical condition. During the course of the patient's stay, I spent a considerable amount of time at the bedside performing serial re-evaluations of the patient's hemodynamic and clinical status because of the recognized potential threat to life or limb in this condition. I then had a chance to review not only all of the available current laboratory and radiographic studies obtained today, but I also reviewed old records available to me at the time. Additionally, any ancillary information available including [place] operator records were reviewed. Sequential vital signs were obtained. Patient with possible sepsis, patient with a white count of 20, patient was resuscitated, patient initially hypotensive, and given cefepime, Vanco, 2 L of normal saline, patient's blood pressure improved greater than 100 systolic Critical Care time of 31 minutes was performed exclusive of billable procedures. Medical Decision Making Diagnostic Impression: Primary Impression: Sepsis Additional Impression: Failure to thrive in adult ER Course Patient seen immediately on arrival at 12:50pm 68-year-old male not eating, sent here from the half-way to have a G-tube placed, patient found tachycardic, dry mucous membranes, patient with a white blood cell count of 20, concern for possible sepsis, patient will be given antibiotics, patient with a chronic right opacification possible pleural effusion, patient no acute distress, patient is hemodynamically stable, will resuscitate patient with 2 L of normal saline, patient will be admitted to the hospital under group abx given, lactic acid normal, patient initially hypotensive now normotensive reeval 1:35pm patient improving Reeval 2pm Systolic blood pressure greater than 104 Patient endorsed to hospitalist Dr. Gifford at 2:06pm Laboratory Tests Test 04/03/19 12:58 04/03/19 13:23 04/03/19 13:31 White Blood Count 20.5 K/UL (4.8-10.8) H Red Blood Count 3.31 M/UL (4.70-6.10) L Hemoglobin 8.7 G/DL (14.2-18.0) L Hematocrit 29.1 % (42.0-52.0) L Mean Corpuscular Volume 88 FL (80-99) Mean Corpuscular Hemoglobin 26.3 PG (27.0-31.0) L Mean Corpuscular Hemoglobin Concent 29.9 G/DL (32.0-36.0) L Red Cell Distribution Width 19.3 % (11.6-14.8) H Platelet Count 586 K/UL (150-450) H Mean Platelet Volume 5.0 FL (6.5-10.1) L Neutrophils (%) (Auto) % (45.0-75.0) Lymphocytes (%) (Auto) % (20.0-45.0) Monocytes (%) (Auto) % (1.0-10.0) Eosinophils (%) (Auto) % (0.0-3.0) Basophils (%) (Auto) % (0.0-2.0) Differential Total Cells Counted 100 Neutrophils % (Manual) 87 % (45-75) H Lymphocytes % (Manual) 6 % (20-45) L Monocytes % (Manual) 7 % (1-10) Eosinophils % (Manual) 0 % (0-3) Basophils % (Manual) 0 % (0-2) Band Neutrophils 0 % (0-8) Platelet Estimate Increased H Platelet Morphology Normal Hypochromasia 2+ Anisocytosis 2+ Prothrombin Time 13.2 SEC (9.30-11.50) H Prothrombin Time INR 1.3 (0.9-1.1) H PTT 39 SEC (23-33) H Sodium Level 142 MMOL/L (136-145) Potassium Level 3.4 MMOL/L (3.5-5.1) L Chloride Level 108 MMOL/L (98-107) H Carbon Dioxide Level 32 MMOL/L (21-32) Anion Gap 2 mmol/L (5-15) L Blood Urea Nitrogen 11 mg/dL (7-18) Creatinine 0.5 MG/DL (0.55-1.30) L Estimate Glomerular Filtration Rate > 60 mL/min (>60) Glucose Level 101 MG/DL (74-106) Calcium Level 9.0 MG/DL (8.5-10.1) Phosphorus Level 2.8 MG/DL (2.5-4.9) Magnesium Level 1.9 MG/DL (1.8-2.4) Total Bilirubin 0.5 MG/DL (0.2-1.0) Aspartate Amino Transferase (AST) 16 U/L (15-37) Alanine Aminotransferase (ALT) < 6 U/L (12-78) L Alkaline Phosphatase 88 U/L (46-116) Total Creatine Kinase 91 U/L (26-308) Total Protein 6.2 G/DL (6.4-8.2) L Albumin 1.7 G/DL (3.4-5.0) L Globulin 4.5 g/dL Albumin/Globulin Ratio 0.4 (1.0-2.7) L Lipase 41 U/L (73-393) L Lactic Acid Level 1.10 mmol/L (0.4-2.0) Urine Color Yellow Urine Appearance Slightly cloudy Urine pH 6 (4.5-8.0) Urine Specific [place] 1.020 (1.005-1.035) Urine Protein 2+ (NEGATIVE) H Urine Glucose (UA) Negative (NEGATIVE) Urine Ketones Negative (NEGATIVE) Urine Blood 4+ (NEGATIVE) H Urine Nitrite Negative (NEGATIVE) Urine Bilirubin Negative (NEGATIVE) Urine Urobilinogen 1 MG/DL (0.0-1.0) H Urine Leukocyte Esterase 1+ (NEGATIVE) H Urine RBC Pending Urine WBC Pending Urine Squamous Epithelial Cells Pending Urine Bacteria Pending Lab Results Impression WBC > 20 EKG Diagnostic Results EKG Time: 13:10 EP Interpretation: Tachycardia, rate 108, QTc 407, no acute ST elevations, normal axis Rate: tachycardiac Rhythm: NSR ST Segments: no acute changes Chest X-Ray Diagnostic Results Chest X-Ray Diagnostic Results : Chest X-Ray Ordered: Yes # of Views/Limited/Complete: 1 View Indication: Other - Preop EP Interpretation: Yes Interpretation: other - Right hemothorax with opacification Impression: Other - Pacified right hemothorax, unchanged, pleural effusion Last Vital Signs Date Time Temp Pulse Resp B/P (MAP) Pulse Ox O2 Delivery O2 Flow Rate FiO2 04/03/19 12:43 98.4 108 20 93/53 (66) 87 Room Air Disposition: ADMITTED INPATIENT Condition: Stable Parish Zheng M.D. Apr 03, 2019 12:59
[2019-04-03 13:19] LABS: HEMATOCRIT 29.1 % (42.0-52.0); HEMOGLOBIN 8.7 G/DL (14.2-18.0); MEAN CORPUSCULAR VOLUME 88 FL (80-99); PLATELET COUNT 586 K/UL (150-450); RED BLOOD COUNT 3.31 M/UL (4.70-6.10); RED CELL DISTRIBUTION WIDTH 19.3 % (11.6-14.8); WHITE BLOOD COUNT 20.5 K/UL (4.8-10.8)
[2019-04-03 13:22] LABS: ANION GAP 2 mmol/L (5-15); BLOOD UREA NITROGEN 11 mg/dL (7-18); CARBON DIOXIDE 32 MMOL/L (21-32); CHLORIDE 108 MMOL/L (98-107); CREATININE 0.5 MG/DL (0.55-1.30); POTASSIUM 3.4 MMOL/L (3.5-5.1); SODIUM 142 MMOL/L (136-145)
[2019-04-03 13:23] LABS: INR 1.3 (0.9-1.1)
[2019-04-03 13:28] LABS: ALANINE AMINOTRANSFERASE < 6 U/L (12-78); ALBUMIN 1.7 G/DL (3.4-5.0); ALBUMIN/GLOBULIN RATIO 0.4 (1.0-2.7); ALKALINE PHOSPHATASE 88 U/L (46-116); ASPARTATE AMINO TRANSFERASE 16 U/L (15-37); BILIRUBIN,TOTAL 0.5 MG/DL (0.2-1.0); CREATINE KINASE 91 U/L (26-308); PHOSPHORUS 2.8 MG/DL (2.5-4.9)
--- NOTE | 2019-04-03 13:38 | NUR ---
ED Nurse Note: Pt ROSE MARY from [facility] due to "not eating x 5 days", family wants pt. to have g-tube to be inserted. Skin is intact. Pt. is AAOx1 to his self. Contractures noted with swelling on the R arm. Pt. is warm to touch. No s/s of acute resp distress noted
[2019-04-03] MEDS ORDERED: Cefepime HCl 2 GM in D5W 55 ML IVPB ONE (13:45)
[2019-04-03] MEDS ORDERED: Vancomycin 1 GM in NS 275 ML IVPB ONE (13:45)
[2019-04-03 13:58] LABS: APPEARANCE,URINE SLIGHTLY CLOUDY; BILIRUBIN, URINE NEGATIVE (NEGATIVE); GLUCOSE, URINE (UA) NEGATIVE (NEGATIVE); KETONES,URINE NEGATIVE (NEGATIVE); LEUKOCYTE ESTERASE ,URINE 1+ (NEGATIVE); NITRITE,URINE NEGATIVE (NEGATIVE); PH,URINE 6 (4.5-8.0); PROTEIN,URINE 2+ (NEGATIVE); UROBILINOGEN,URINE 1 MG/DL (0.0-1.0)
[2019-04-03 14:00] LABS: COLOR,URINE YELLOW
[2019-04-03] MEDS ORDERED: Cefepime 2gm IV ONE (14:00)
[2019-04-03] MEDS ORDERED: Albuterol/Ipratropium 3ml neb HHN PRN (14:00)
--- NOTE | 2019-04-03 14:53 | NUR ---
ED Nurse Note: TRIED TO CALL FOR REPORT BUT NO RN ASSIGNED TO THIS PT YET. TELEMETRY CHARGE NURSE WILL CALL US BACK.
[2019-04-03] MEDS ORDERED: D5 1/2NS 1,000 ML IV SCH (14:59)
[2019-04-03] MEDS ORDERED: Morphine Sulfate 2mg/ml Inj(IV/IM USE ONLY) IVP PRN (15:00)
--- NOTE | 2019-04-03 15:39 | NUR ---
ED Nurse Note: REPORT GIVEN TO MARIO BAER
[2019-04-03 15:40] VITALS: BP 93/53
--- NOTE | 2019-04-03 15:45 | NUR ---
ED Nurse Note: pt. was seen with pulled out IV. Pt. had a bm today. Pt. kept clean and dry. Inserted new IV access on the R 22 gauge, intact and patent.
[2019-04-03 16:00] VITALS: BP 115/75
--- NOTE | 2019-04-03 16:00 | NUR ---
NURSE NOTES: Received pt from ED via gurney. Pt transferred to 202-2. Pt is A/Ox 1. Breathing unlabored in room air. dieing out machine operator is in placed; pt is sinus tach. IV site intact, asymptomatic, and patent. Bed is in the lowest position and locked, with two side rails up.Call light within reach. No signs/symptoms of acute distress noted at this time. Will continue plan of care.
--- NOTE | 2019-04-03 16:16 | Diagnostic Imaging Report ---
Indication: Shortness of breath Technique: One view of the chest Comparison: 03/21/2019 Findings: Near complete opacification of the right hemithorax is again demonstrated, with only minimal aerated lung, even less than that seen previously. The left lung and pleural space remain clear. The heart size is impossible to assess, as the right heart border is completely obscured. The aorta is tortuous. Impression: There is complete opacification of the right hemithorax, with further decrease in the minimal amount of aerated lung present on the right. Findings may be due to pleural fluid, right lung atelectasis, combination of both
--- NOTE | 2019-04-03 16:57 | History and Physical ---
History of Present Illness General Date patient seen: Apr 03, 2019 Time patient seen: 14:20 Reason for Hospitalization: FAILURE TO THRIVE NOT EATING X 2 DAYS Present Illness HPI 68 Y/O with dementia who is known to our service in the the Hospital and at SNF ( [facility] ). He is DNR, baseline dementia and recently [place] [facility] [place] [facility]. Initially, he was admitted to a different group and my colleague Dr. Wilkins took care of him. He has metastatic lung cancer, brain tumor, NIDDM, COPD, BPH, HTN, recent anemia , s/p PRBC and Venofer. Since his return to SNF he was stable and was noted in the past 2 days to have no PO intake. Family inquired about PEG and transfer to the Hospital started. In the ER he was noted to have elevated WBC, lactate was 1.1, albumin .7, CXR with known opacity. Admission for possible sepsis is needed. IV Vancomycin and Cefepime started. Allergies: Coded Allergies: PENICILLINS (Verified Allergy, Unknown, 03/21/19) Medication History Scheduled Amino Acids/Protein Hydrolys (Pro-Stat Liquid), 30 ML ORAL TWICE A DAY, ( Reported) Amlodipine Besylate* (Amlodipine Besylate*), 10 MG ORAL DAILY, (Reported) Cranberry Fruit Concentrate (Cranberry), 450 MG PO DAILY, (Reported) Docusate Sodium* (Colace*), 100 MG ORAL TWICE A DAY, (Reported) Famotidine (Famotidine), 20 MG ORAL DAILY, (Reported) Lisinopril (Lisinopril*), 30 MG ORAL DAILY, (Reported) Multivitamin With Minerals (Multivitamins With Minerals*), 1 TAB ORAL DAILY, ( Reported) Polyethylene Glycol 3350* (Polyethylene Glycol 3350*), 17 GM ORAL DAILY, ( Reported) Rivaroxaban (Xarelto), 20 MG ORAL DAILY, (Reported) Tamsulosin HCl (Flomax), 0.4 MG ORAL DAILY, (Reported) Scheduled PRN Acetaminophen (Acetaminophen), 1,000 MG ORAL Q4H PRN for Moderate Pain (Pain Scale 4-6), (Reported) Acetaminophen* (Acetaminophen 325MG Tablet*), 650 MG ORAL Q4H PRN for Mild Pain/ Temp > 100.5, (Reported) Bisacodyl (Bisacodyl), 10 MG RC DAILY PRN for Constipation, (Reported) Cyclobenzaprine Hcl* (Flexeril*), 5 MG ORAL THREE TIMES A DAY PRN for Muscle Spasm, (Reported) Magnesium Hydroxide* (Milk Of Magnesia*), 30 ML ORAL QHS PRN for Constipation, ( Reported) Melatonin (Melatonin), 3 MG ORAL BEDTIME PRN for Insomnia, (Reported) Ondansetron Odt* (Zofran Odt*), 4 MG ORAL Q4HR PRN for Nausea & Vomiting, ( Reported) Oxycodone Hcl (Oxycodone Hcl), 10 MG ORAL Q4HR PRN for Severe Pain (Pain Scale 7 -10), (Reported) Oxycodone Hcl (Oxycodone Hcl), 5 MG ORAL Q4HR PRN for Moderate Pain (Pain Scale 4-6), (Reported) Miscellaneous Medications Insulin Regular, Human (Humulin R), 600 MCG SUBQ, (Reported) Patient History Healthcare decision maker Resuscitation status Advanced Directive on File Review of Systems Constitutional: Reports: see HPI Physical Exam General Appearance: moderate distress Lines, tubes and drains: peripheral HEENT: normocephalic Neck: non-tender Respiratory/Chest: decreased breath sounds Cardiovascular/Chest: normal peripheral pulses Abdomen: normal bowel sounds Extremities: other - leg contractures Neurologic: mitigation supervisor II-XII grossly normal Musculoskeletal: atrophy Last 24 Hour Vital Signs Date Time Temp Pulse Resp B/P (MAP) Pulse Ox O2 Delivery O2 Flow Rate FiO2 04/03/19 15:57 98.6 113 22 93/53 95 Room Air 04/03/19 15:40 98.6 113 22 93/53 95 Room Air 04/03/19 12:43 98.4 108 20 93/53 87 Room Air 04/03/19 12:43 98.4 108 20 93/53 (66) 87 Room Air 04/03/19 12:43 108 20 Room Air Laboratory Tests Test 04/03/19 12:58 04/03/19 13:23 04/03/19 13:31 White Blood Count 20.5 K/UL (4.8-10.8) H Red Blood Count 3.31 M/UL (4.70-6.10) L Hemoglobin 8.7 G/DL (14.2-18.0) L Hematocrit 29.1 % (42.0-52.0) L Mean Corpuscular Volume 88 FL (80-99) Mean Corpuscular Hemoglobin 26.3 PG (27.0-31.0) L Mean Corpuscular Hemoglobin Concent 29.9 G/DL (32.0-36.0) L Red Cell Distribution Width 19.3 % (11.6-14.8) H Platelet Count 586 K/UL (150-450) H Mean Platelet Volume 5.0 FL (6.5-10.1) L Neutrophils (%) (Auto) % (45.0-75.0) Lymphocytes (%) (Auto) % (20.0-45.0) Monocytes (%) (Auto) % (1.0-10.0) Eosinophils (%) (Auto) % (0.0-3.0) Basophils (%) (Auto) % (0.0-2.0) Differential Total Cells Counted 100 Neutrophils % (Manual) 87 % (45-75) H Lymphocytes % (Manual) 6 % (20-45) L Monocytes % (Manual) 7 % (1-10) Eosinophils % (Manual) 0 % (0-3) Basophils % (Manual) 0 % (0-2) Band Neutrophils 0 % (0-8) Platelet Estimate Increased H Platelet Morphology Normal Hypochromasia 2+ Anisocytosis 2+ Prothrombin Time 13.2 SEC (9.30-11.50) H Prothromb Time International Ratio 1.3 (0.9-1.1) H Activated Partial Thromboplast Time 39 SEC (23-33) H Sodium Level 142 MMOL/L (136-145) Potassium Level 3.4 MMOL/L (3.5-5.1) L Chloride Level 108 MMOL/L (98-107) H Carbon Dioxide Level 32 MMOL/L (21-32) Anion Gap 2 mmol/L (5-15) L Blood Urea Nitrogen 11 mg/dL (7-18) Creatinine 0.5 MG/DL (0.55-1.30) L Estimat Glomerular Filtration Rate > 60 mL/min (>60) Glucose Level 101 MG/DL (74-106) Calcium Level 9.0 MG/DL (8.5-10.1) Phosphorus Level 2.8 MG/DL (2.5-4.9) Magnesium Level 1.9 MG/DL (1.8-2.4) Total Bilirubin 0.5 MG/DL (0.2-1.0) Aspartate Amino Transf (AST/SGOT) 16 U/L (15-37) Alanine Aminotransferase (ALT/SGPT) < 6 U/L (12-78) L Alkaline Phosphatase 88 U/L (46-116) Total Creatine Kinase 91 U/L (26-308) Total Protein 6.2 G/DL (6.4-8.2) L Albumin 1.7 G/DL (3.4-5.0) L Globulin 4.5 g/dL Albumin/Globulin Ratio 0.4 (1.0-2.7) L Lipase 41 U/L (73-393) L Lactic Acid Level 1.10 mmol/L (0.4-2.0) Urine Color Yellow Urine Appearance Slightly cloudy Urine pH 6 (4.5-8.0) Urine Specific [place] 1.020 (1.005-1.035) Urine Protein 2+ (NEGATIVE) H Urine Glucose (UA) Negative (NEGATIVE) Urine Ketones Negative (NEGATIVE) Urine Blood 4+ (NEGATIVE) H Urine Nitrite Negative (NEGATIVE) Urine Bilirubin Negative (NEGATIVE) Urine Urobilinogen 1 MG/DL (0.0-1.0) H Urine Leukocyte Esterase 1+ (NEGATIVE) H Urine RBC 10-15 /HPF (0 - 0) H Urine WBC 10-15 /HPF (0 - 0) H Urine Squamous Epithelial Cells Few /LPF (NONE/OCC) Urine Amorphous Sediment Moderate /LPF (NONE) H Urine Bacteria Few /HPF (NONE) Urine Mucus Moderate /LPF (NONE/OCC) H Height (Feet): 5 Height (Inches): 5.00 Weight (Pounds): 140 Medications Current Medications Medications (Trade) Dose Ordered Sig/Stephani Route PRN Reason Start Time Stop Time Status Last Admin Dose Admin Acetaminophen (Tylenol) 650 mg Q4H PRN ORAL Mild Pain (Pain Scale 1-3) 04/03/19 14:00 05/03/19 13:59 Albuterol/ Ipratropium (Albuterol/ Ipratropium) 3 ml Q8H PRN HHN Shortness of Breath 04/03/19 14:00 04/08/19 13:59 Cefepime HCl 2 gm/ Dextrose 110 ml @ 220 mls/hr Q8HR IV 7/15/19 22:00 04/10/19 21:59 Dextrose (Dextrose 50%) 25 ml Q30M PRN IV Hypoglycemia 04/03/19 14:00 05/03/19 13:59 Dextrose (Dextrose 50%) 50 ml Q30M PRN IV Hypoglycemia 04/03/19 14:00 05/03/19 13:59 Dextrose/Sodium Chloride 1,000 ml @ 75 mls/hr [id number] IV 04/03/19 14:59 05/03/19 14:58 Docusate Sodium (Colace) 100 mg EVERY 12 HOURS ORAL 04/03/19 21:00 05/03/19 20:59 Famotidine (Pepcid I.v.) 20 mg Q12HR IVP 04/03/19 21:00 05/03/19 20:59 Heparin Sodium (Porcine) (Heparin 5000 units/ml) 5,000 units EVERY 12 HOURS SUBQ 04/03/19 21:00 05/03/19 20:59 Morphine Sulfate (Morphine Sulfate) 1 mg Q8H PRN IVP PAIN 4-10 04/03/19 15:00 04/10/19 14:59 Temazepam (Restoril) 15 mg HSPRN PRN ORAL Insomnia 04/03/19 21:00 04/10/19 20:59 Vancomycin HCl 1 gm/Sodium Chloride 275 ml @ 183.708 mls/hr Q12H IVPB 04/04/19 02:30 04/09/19 02:29 Assessment/Plan Status: stable Assessment/Plan: 68 y/o male with dementia who is re admitted to the hospital for failure to thrive and need of PEG which family now agrees to. #Sepsis of unknown source - SNF resident will continue Vancomycin and Cefepime -Follow up blood cx - ID consult requested. NEED CLEARANCE to determine proper timing for PEG procedure due to severe protein caloric malnutrition -History of Sepsis due to pseudomonas UTI -CTM #HIstory of anemia likely 2/2 GI source and IDRIS -Gi Consult and FOBT pending. -Venofer was given last admission -Hb acceptable and > 8 today - #Diabetes mellitus -ISS -carb controlled feeding -FSG QAC and hs #Hypertension -BP better control, will monitor #BPH -cont flomax #Metastatic lung cancer -No intervention. # Agitation due to underlying dementia - Monitor and consider psychiatry if needed - Restraints as needed for safety and avoidance of self harm or removing medical devices Code: Ana Maria Maciel MD Apr 03, 2019 16:57
[2019-04-03] MEDS: D5 1/2NS w/KCl 20mEq 1,000 ML IV SCH (19:49)
--- NOTE | 2019-04-03 19:49 | NUR ---
HAND-OFF: Report given to MARIO Gan.
--- NOTE | 2019-04-03 19:50 | NUR ---
NURSE NOTES: Received report from MARIO George. Patient in bed asleep showing no signs of acute distress. Respiration even and non labored on room air. No sob noted. IV line patent and intact on right wrist running D5 0.45% NS w/ 20meq KCL. Pt. noted on condom cath. intact, and draining. VS stable. Pt. on bilateral soft wrist restraints for observing pulling of device. No injury noted. Cap refill <3 sec. Pt. noted on bilateral +4 pitting edema. Skin is intact. Bed in lowest position, call light within reach, wheels locked and alarm on. All needs attended and met. Will continue plan of care.
[2019-04-03 20:00] VITALS: BP 106/63
--- NOTE | 2019-04-03 20:15 | NUR ---
CASE MANAGEMENT: REVIEW 68Y/M BIBA FROM [facility] CONV CC: AMS . NOT EATING X 2 DAYS SI: FAILURE TO THRIVE . SEPSIS T 98.6 HR 113 RR 22 BP 93/53 SAT 95% ROOM AIR WBC 20.5 H/H 8.7/29.1 K 3.4 IS: VANCO IV X1 CEFEPIME IV X1 NS BOLUS X1 PATIENT ADMITTED TO TELEMETRY UNIT 04/03/2019 DCP: PATIENT IS [facility] [place] CONV
[2019-04-03] MEDS: Docusate 100mg cap ORAL SCH (21:53)
[2019-04-03] MEDS: Cefepime 2gm/D5W 110ml IV SCH ×2 (21:54)
[2019-04-03] MEDS: Heparin 5000 units/ml inj SUBQ SCH (21:54)
--- NOTE | 2019-04-03 23:19 | Infectious Diseases Prog Note ---
Assessment/Plan Assessment/Plan Full consult to follow: A) sepsis pna uti P) vancomycin, cefepime, flagyl check cultures, labs and chest x-ray thank you Subjective Allergies: Coded Allergies: PENICILLINS (Verified Allergy, Unknown, 03/21/19) Objective Vital Signs Last 24 Hour Vital Signs Date Time Temp Pulse Resp B/P (MAP) Pulse Ox O2 Delivery O2 Flow Rate FiO2 04/03/19 18:39 109 04/03/19 18:00 Room Air 04/03/19 16:00 97.7 112 20 115/75 (88) 95 04/03/19 15:57 98.6 113 22 93/53 95 Room Air 04/03/19 15:40 98.6 113 22 93/53 95 Room Air 04/03/19 12:43 98.4 108 20 93/53 87 Room Air 04/03/19 12:43 98.4 108 20 93/53 (66) 87 Room Air 04/03/19 12:43 108 20 Room Air Height (Feet): 5 Height (Inches): 5.00 Weight (Pounds): 140 Laboratory Tests Test 04/03/19 12:58 04/03/19 13:23 04/03/19 13:31 White Blood Count 20.5 K/UL (4.8-10.8) H Red Blood Count 3.31 M/UL (4.70-6.10) L Hemoglobin 8.7 G/DL (14.2-18.0) L Hematocrit 29.1 % (42.0-52.0) L Mean Corpuscular Volume 88 FL (80-99) Mean Corpuscular Hemoglobin 26.3 PG (27.0-31.0) L Mean Corpuscular Hemoglobin Concent 29.9 G/DL (32.0-36.0) L Red Cell Distribution Width 19.3 % (11.6-14.8) H Platelet Count 586 K/UL (150-450) H Mean Platelet Volume 5.0 FL (6.5-10.1) L Neutrophils (%) (Auto) % (45.0-75.0) Lymphocytes (%) (Auto) % (20.0-45.0) Monocytes (%) (Auto) % (1.0-10.0) Eosinophils (%) (Auto) % (0.0-3.0) Basophils (%) (Auto) % (0.0-2.0) Differential Total Cells Counted 100 Neutrophils % (Manual) 87 % (45-75) H Lymphocytes % (Manual) 6 % (20-45) L Monocytes % (Manual) 7 % (1-10) Eosinophils % (Manual) 0 % (0-3) Basophils % (Manual) 0 % (0-2) Band Neutrophils 0 % (0-8) Platelet Estimate Increased H Platelet Morphology Normal Hypochromasia 2+ Anisocytosis 2+ Prothrombin Time 13.2 SEC (9.30-11.50) H Prothromb Time International Ratio 1.3 (0.9-1.1) H Activated Partial Thromboplast Time 39 SEC (23-33) H Sodium Level 142 MMOL/L (136-145) Potassium Level 3.4 MMOL/L (3.5-5.1) L Chloride Level 108 MMOL/L (98-107) H Carbon Dioxide Level 32 MMOL/L (21-32) Anion Gap 2 mmol/L (5-15) L Blood Urea Nitrogen 11 mg/dL (7-18) Creatinine 0.5 MG/DL (0.55-1.30) L Estimat Glomerular Filtration Rate > 60 mL/min (>60) Glucose Level 101 MG/DL (74-106) Calcium Level 9.0 MG/DL (8.5-10.1) Phosphorus Level 2.8 MG/DL (2.5-4.9) Magnesium Level 1.9 MG/DL (1.8-2.4) Total Bilirubin 0.5 MG/DL (0.2-1.0) Aspartate Amino Transf (AST/SGOT) 16 U/L (15-37) Alanine Aminotransferase (ALT/SGPT) < 6 U/L (12-78) L Alkaline Phosphatase 88 U/L (46-116) Total Creatine Kinase 91 U/L (26-308) Total Protein 6.2 G/DL (6.4-8.2) L Albumin 1.7 G/DL (3.4-5.0) L Globulin 4.5 g/dL Albumin/Globulin Ratio 0.4 (1.0-2.7) L Lipase 41 U/L (73-393) L Lactic Acid Level 1.10 mmol/L (0.4-2.0) Urine Color Yellow Urine Appearance Slightly cloudy Urine pH 6 (4.5-8.0) Urine Specific [place] 1.020 (1.005-1.035) Urine Protein 2+ (NEGATIVE) H Urine Glucose (UA) Negative (NEGATIVE) Urine Ketones Negative (NEGATIVE) Urine Blood 4+ (NEGATIVE) H Urine Nitrite Negative (NEGATIVE) Urine Bilirubin Negative (NEGATIVE) Urine Urobilinogen 1 MG/DL (0.0-1.0) H Urine Leukocyte Esterase 1+ (NEGATIVE) H Urine RBC 10-15 /HPF (0 - 0) H Urine WBC 10-15 /HPF (0 - 0) H Urine Squamous Epithelial Cells Few /LPF (NONE/OCC) Urine Amorphous Sediment Moderate /LPF (NONE) H Urine Bacteria Few /HPF (NONE) Urine Mucus Moderate /LPF (NONE/OCC) H Current Medications Medications (Trade) Dose Ordered Sig/Stephani Route PRN Reason Start Time Stop Time Status Last Admin Dose Admin Acetaminophen (Tylenol) 650 mg Q4H PRN ORAL Mild Pain (Pain Scale 1-3) 04/03/19 14:00 05/03/19 13:59 Albuterol/ Ipratropium (Albuterol/ Ipratropium) 3 ml Q8H PRN HHN Shortness of Breath 04/03/19 14:00 04/08/19 13:59 Cefepime HCl 2 gm/ Dextrose 110 ml @ 220 mls/hr Q8HR IV 04/03/19 22:00 04/10/19 21:59 04/03/19 21:54 Dextrose (Dextrose 50%) 25 ml Q30M PRN IV Hypoglycemia 04/03/19 14:00 05/03/19 13:59 Dextrose (Dextrose 50%) 50 ml Q30M PRN IV Hypoglycemia 04/03/19 14:00 05/03/19 13:59 Dextrose/ Electrolytes 1,000 ml @ 75 mls/hr [id number] IV 04/03/19 19:00 05/03/19 18:59 04/03/19 19:49 Docusate Sodium (Colace) 100 mg EVERY 12 HOURS ORAL 04/03/19 21:00 05/03/19 20:59 04/03/19 21:53 Famotidine (Pepcid I.v.) 20 mg Q12HR IVP 04/03/19 21:00 05/03/19 20:59 04/03/19 21:53 Heparin Sodium (Porcine) (Heparin 5000 units/ml) 5,000 units EVERY 12 HOURS SUBQ 04/03/19 21:00 05/03/19 20:59 04/03/19 21:54 Morphine Sulfate (Morphine Sulfate) 1 mg Q8H PRN IVP PAIN 4-10 04/03/19 15:00 04/10/19 14:59 Temazepam (Restoril) 15 mg HSPRN PRN ORAL Insomnia 04/03/19 21:00 04/10/19 20:59 Vancomycin HCl 1 gm/Sodium Chloride 275 ml @ 183.708 mls/hr Q12H IVPB 04/04/19 02:30 04/09/19 02:29 Juan Candelaria MD Apr 03, 2019 23:19
[2019-04-04] VITALS: BP 113/69
[2019-04-04] MEDS: Vancomycin 1 GM in NS 275 ML IVPB SCH ×2 (02:54→16:04)
[2019-04-04 04:09] VITALS: BP 96/55
[2019-04-04] MEDS: Cefepime 2gm/D5W 110ml IV SCH ×4 (05:35→14:21)
[2019-04-04 07:03] LABS: INR 1.2 (0.9-1.1)
[2019-04-04 07:20] LABS: HEMATOCRIT 25.8 % (42.0-52.0); HEMOGLOBIN 7.7 G/DL (14.2-18.0); MEAN CORPUSCULAR VOLUME 88 FL (80-99); PLATELET COUNT 554 K/UL (150-450); RED BLOOD COUNT 2.92 M/UL (4.70-6.10); RED CELL DISTRIBUTION WIDTH 19.6 % (11.6-14.8); WHITE BLOOD COUNT 20.8 K/UL (4.8-10.8)
--- NOTE | 2019-04-04 07:30 | NUR ---
HAND-OFF: Report given to MARIO Perez.
[2019-04-04 07:36] LABS: ANION GAP 7 mmol/L (5-15); BLOOD UREA NITROGEN 11 mg/dL (7-18); CALCIUM 8.9 MG/DL (8.5-10.1); CARBON DIOXIDE 29 MMOL/L (21-32); CHLORIDE 111 MMOL/L (98-107); CREATININE 0.6 MG/DL (0.55-1.30); POTASSIUM 2.9 MMOL/L (3.5-5.1); SODIUM 147 MMOL/L (136-145)
--- NOTE | 2019-04-04 07:38 | NUR ---
NURSE NOTES: Patient is alert and awake. No s/s of distress. Patient is calm. Side rails are upx3, bed is locked, in lowest position, and call light is within reach. Will continue to monitor.
[2019-04-04 08:00] VITALS: BP 100/59
[2019-04-04] MEDS: D5 1/2NS w/KCl 20mEq 1,000 ML IV SCH ×2 (08:19→23:11)
[2019-04-04] MEDS: Docusate 100mg cap ORAL SCH ×2 (08:19→20:15)
[2019-04-04] MEDS: Heparin 5000 units/ml inj SUBQ SCH ×2 (08:22→20:18)
--- NOTE | 2019-04-04 08:34 | NUR ---
RADIOLOGY DEPT., CHEST X-RAY DONE.-P.DYE
--- NOTE | 2019-04-04 08:34 | NUR ---
RADIOLOGY: PCXR FINISHED 0800 HRS. NF
--- NOTE | 2019-04-04 08:47 | GI Initial Consult Note ---
History of Present Illness General Date patient seen: Apr 04, 2019 Time patient seen: 08:40 Reason for Hospitalization: General Complaint Referring physician: JONES HODGES Reason for Consultation: PEG Present Illness HPI 68 Y/O with dementia who is known to our service in the the Hospital and at SNF ( [facility] ). He is DNR, baseline dementia and recently admitted and treated with antibiotics at [facility] for concerns of sepsis. Initially, he was admitted to a different group and my colleague Dr. Wilikns took care of him. He has metastatic lung cancer, brain tumor, NIDDM, COPD, BPH, HTN, recent anemia , s/p PRBC and Venofer. Since his return to SNF he was stable and was noted in the past 2 days to have no PO intake. Family inquired about PEG and transfer to the Hospital started. In the ER he was noted to have elevated WBC, lactate was 1.1, albumin .7, CXR with known opacity. Admission for possible sepsis is needed. IV Vancomycin and Cefepime started. GI consulted for PEG placement. Patient admitted for failure to thrive, had poor p.o. intake for the past 2 days. Being admitted with a white count of 20.0. ROS limited, patient seen awake alert no apparent distress with no active signs or symptoms of nausea vomiting. All information obtained from medical record. Noted that the POLST agreed for trial of artificial feeding if necessary. Family agrees for PEG placement. unknown history of endoscopic or colonoscopy. Home Meds Reported Medications Acetaminophen* (ACETAMINOPHEN 325MG TABLET*) 325 Mg Tablet, 650 MG ORAL Q4H PRN for Mild Pain/Temp > 100.5, TAB 03/21/19 Acetaminophen (Acetaminophen) 500 Mg Tablet, 1000 MG ORAL Q4H PRN for Moderate Pain (Pain Scale 4-6), TAB 03/21/19 Rivaroxaban (XARELTO) 20 Mg Tablet, 20 MG ORAL DAILY for 30 Days, MG 0 Refills 03/21/19 Polyethylene Glycol 3350* (POLYETHYLENE GLYCOL 3350*) 17 Gm Powd.pack, 17 GM ORAL DAILY, PACKET 03/21/19 Amino Acids/Protein Hydrolys (PRO-STAT LIQUID) 30 Ml Liquid.pkt, 30 ML ORAL TWICE A DAY, ML 03/21/19 Oxycodone Hcl (OXYCODONE HCL) 20 Mg Tablet, 5 MG ORAL Q4HR PRN for Moderate Pain (Pain Scale 4-6), #10 TAB 0 Refills 03/21/19 Oxycodone Hcl (OXYCODONE HCL) 20 Mg Tablet, 10 MG ORAL Q4HR PRN for Severe Pain (Pain Scale 7-10), #10 TAB 0 Refills 03/21/19 Ondansetron Odt* (ZOFRAN ODT*) 8 Mg Tab.rapdis, 4 MG ORAL Q4HR PRN for Nausea & Vomiting, #30 TAB 03/21/19 Multivitamin With Minerals (MULTIVITAMINS WITH MINERALS*) 1 Each Tablet, 1 TAB ORAL DAILY, TAB 03/21/19 Magnesium Hydroxide* (MILK OF MAGNESIA*) 400 Mg/5 Ml Oral.susp, 30 ML ORAL QHS PRN for Constipation, ML 03/21/19 Melatonin (MELATONIN) 3 Mg Tablet.er, 3 MG ORAL BEDTIME PRN for Insomnia, TAB 03/21/19 Lisinopril (LISINOPRIL*) 20 Mg Tablet, 30 MG ORAL DAILY, TAB 03/21/19 Insulin Regular, Human (Humulin R) 100 Unit/1 Ml Vial, 600 MCG SUBQ, VIAL 03/21/19 Tamsulosin HCl (Flomax) 0.4 Mg Cap.er.24h, 0.4 MG ORAL DAILY, CAP 03/21/19 Famotidine (FAMOTIDINE) 20 Mg Tablet, 20 MG ORAL DAILY, #30 TAB 0 Refills 03/21/19 Cyclobenzaprine Hcl* (FLEXERIL*) 10 Mg Tablet, 5 MG ORAL THREE TIMES A DAY PRN for Muscle Spasm, TAB 03/21/19 Cranberry Fruit Concentrate (CRANBERRY) 450 Mg Capsule, 450 MG PO DAILY, CAP 03/21/19 Docusate Sodium* (COLACE*) 100 Mg Capsule, 100 MG ORAL TWICE A DAY, CAP 03/21/19 Bisacodyl (BISACODYL) 10 Mg Supp.rect, 10 MG RC DAILY PRN for Constipation, SUPP 03/21/19 Amlodipine Besylate* (AMLODIPINE BESYLATE*) 10 Mg Tablet, 10 MG ORAL DAILY, TAB 03/21/19 Med list reviewed/reconciled: Yes Allergies: Coded Allergies: PENICILLINS (Verified Allergy, Unknown, 03/21/19) Patient History Limited by: medical condition History Provided By: Medical Record Social History: Denies: smoking, alcohol use, drug use, other Review of Systems All Other Systems: limited Physical Exam Vital Signs Date Time Temp Pulse Resp B/P (MAP) Pulse Ox O2 Delivery O2 Flow Rate FiO2 04/03/19 12:43 108 20 Room Air 04/03/19 12:43 98.4 93/53 (66) 87 Sp02 EP Interpretation: reviewed, normal Labs Laboratory Tests Test 04/03/19 12:58 04/03/19 13:23 04/03/19 13:31 04/04/19 05:26 White Blood Count 20.5 K/UL (4.8-10.8) H 20.8 K/UL (4.8-10.8) H Red Blood Count 3.31 M/UL (4.70-6.10) L 2.92 M/UL (4.70-6.10) L Hemoglobin 8.7 G/DL (14.2-18.0) L 7.7 G/DL (14.2-18.0) L Hematocrit 29.1 % (42.0-52.0) L 25.8 % (42.0-52.0) L Mean Corpuscular Volume 88 FL (80-99) 88 FL (80-99) Mean Corpuscular Hemoglobin 26.3 PG (27.0-31.0) L 26.4 PG (27.0-31.0) L Mean Corpuscular Hemoglobin Concent 29.9 G/DL (32.0-36.0) L 29.8 G/DL (32.0-36.0) L Red Cell Distribution Width 19.3 % (11.6-14.8) H 19.6 % (11.6-14.8) H Platelet Count 586 K/UL (150-450) H 554 K/UL (150-450) H Mean Platelet Volume 5.0 FL (6.5-10.1) L 4.5 FL (6.5-10.1) L Neutrophils (%) (Auto) % (45.0-75.0) % (45.0-75.0) Lymphocytes (%) (Auto) % (20.0-45.0) % (20.0-45.0) Monocytes (%) (Auto) % (1.0-10.0) % (1.0-10.0) Eosinophils (%) (Auto) % (0.0-3.0) % (0.0-3.0) Basophils (%) (Auto) % (0.0-2.0) % (0.0-2.0) Differential Total Cells Counted 100 100 Neutrophils % (Manual) 87 % (45-75) H 94 % (45-75) H Lymphocytes % (Manual) 6 % (20-45) L 1 % (20-45) L Monocytes % (Manual) 7 % (1-10) 5 % (1-10) Eosinophils % (Manual) 0 % (0-3) 0 % (0-3) Basophils % (Manual) 0 % (0-2) 0 % (0-2) Band Neutrophils 0 % (0-8) 0 % (0-8) Platelet Estimate Increased H Increased H Platelet Morphology Normal Normal Hypochromasia 2+ Anisocytosis 2+ 1+ Prothrombin Time 13.2 SEC (9.30-11.50) H 13.1 SEC (9.30-11.50) H Prothromb Time International Ratio 1.3 (0.9-1.1) H 1.2 (0.9-1.1) H Activated Partial Thromboplast Time 39 SEC (23-33) H 37 SEC (23-33) H Sodium Level 142 MMOL/L (136-145) 147 MMOL/L (136-145) H Potassium Level 3.4 MMOL/L (3.5-5.1) L 2.9 MMOL/L (3.5-5.1) L Chloride Level 108 MMOL/L (98-107) H 111 MMOL/L (98-107) H Carbon Dioxide Level 32 MMOL/L (21-32) 29 MMOL/L (21-32) Anion Gap 2 mmol/L (5-15) L 7 mmol/L (5-15) Blood Urea Nitrogen 11 mg/dL (7-18) 11 mg/dL (7-18) Creatinine 0.5 MG/DL (0.55-1.30) L 0.6 MG/DL (0.55-1.30) Estimat Glomerular Filtration Rate > 60 mL/min (>60) > 60 mL/min (>60) Glucose Level 101 MG/DL (74-106) 111 MG/DL (74-106) H Calcium Level 9.0 MG/DL (8.5-10.1) 8.9 MG/DL (8.5-10.1) Phosphorus Level 2.8 MG/DL (2.5-4.9) Magnesium Level 1.9 MG/DL (1.8-2.4) Total Bilirubin 0.5 MG/DL (0.2-1.0) Aspartate Amino Transf (AST/SGOT) 16 U/L (15-37) Alanine Aminotransferase (ALT/SGPT) < 6 U/L (12-78) L Alkaline Phosphatase 88 U/L (46-116) Total Creatine Kinase 91 U/L (26-308) Total Protein 6.2 G/DL (6.4-8.2) L Albumin 1.7 G/DL (3.4-5.0) L Globulin 4.5 g/dL Albumin/Globulin Ratio 0.4 (1.0-2.7) L Lipase 41 U/L (73-393) L Lactic Acid Level 1.10 mmol/L (0.4-2.0) Urine Color Yellow Urine Appearance Slightly cloudy Urine pH 6 (4.5-8.0) Urine Specific [place] 1.020 (1.005-1.035) Urine Protein 2+ (NEGATIVE) H Urine Glucose (UA) Negative (NEGATIVE) Urine Ketones Negative (NEGATIVE) Urine Blood 4+ (NEGATIVE) H Urine Nitrite Negative (NEGATIVE) Urine Bilirubin Negative (NEGATIVE) Urine Urobilinogen 1 MG/DL (0.0-1.0) H Urine Leukocyte Esterase 1+ (NEGATIVE) H Urine RBC 10-15 /HPF (0 - 0) H Urine WBC 10-15 /HPF (0 - 0) H Urine Squamous Epithelial Cells Few /LPF (NONE/OCC) Urine Amorphous Sediment Moderate /LPF (NONE) H Urine Bacteria Few /HPF (NONE) Urine Mucus Moderate /LPF (NONE/OCC) H General Appearance: well appearing, no apparent distress, alert Head: normocephalic EENT: PERRL/EOMI, normal ENT inspection Neck: supple Respiratory: normal breath sounds, no respiratory distress Cardiovascular: normal rate Gastrointestinal: normal inspection, non tender, soft, normal bowel sounds, non -distended Rectal: deferred Genitourinary: deferred Musculoskeletal: normal inspection, back normal Neurologic: normal inspection, alert, oriented x3, responsive Psychiatric: normal inspection, judgement/insight normal, memory normal Skin: normal inspection, normal color, no rash, warm/dry, palpation normal, well hydrated Lymphatic: normal inspection, no adenopathy Current Medications Current Medications Medications (Trade) Dose Ordered Sig/Stephani Route PRN Reason Start Time Stop Time Status Last Admin Dose Admin Acetaminophen (Tylenol) 650 mg Q4H PRN ORAL Mild Pain (Pain Scale 1-3) 04/03/19 14:00 05/03/19 13:59 Albuterol/ Ipratropium (Albuterol/ Ipratropium) 3 ml Q8H PRN HHN Shortness of Breath 04/03/19 14:00 04/08/19 13:59 Cefepime HCl 2 gm/ Dextrose 110 ml @ 220 mls/hr Q8HR IV 04/03/19 22:00 04/10/19 21:59 04/04/19 05:35 Dextrose (Dextrose 50%) 25 ml Q30M PRN IV Hypoglycemia 04/03/19 14:00 05/03/19 13:59 Dextrose (Dextrose 50%) 50 ml Q30M PRN IV Hypoglycemia 04/03/19 14:00 05/03/19 13:59 Dextrose/ Electrolytes 1,000 ml @ 75 mls/hr [id number] IV 04/03/19 19:00 05/03/19 18:59 04/04/19 08:19 Docusate Sodium (Colace) 100 mg EVERY 12 HOURS ORAL 04/03/19 21:00 05/03/19 20:59 04/04/19 08:19 Famotidine (Pepcid I.v.) 20 mg Q12HR IVP 04/03/19 21:00 05/03/19 20:59 04/04/19 08:20 Heparin Sodium (Porcine) (Heparin 5000 units/ml) 5,000 units EVERY 12 HOURS SUBQ 04/03/19 21:00 05/03/19 20:59 04/03/19 21:54 Metronidazole 100 ml @ 100 mls/hr Q8HR IVPB 04/04/19 06:00 04/11/19 05:59 04/04/19 05:48 Morphine Sulfate (Morphine Sulfate) 1 mg Q8H PRN IVP PAIN 4-10 04/03/19 15:00 04/10/19 14:59 Temazepam (Restoril) 15 mg HSPRN PRN ORAL Insomnia 04/03/19 21:00 04/10/19 20:59 Vancomycin HCl (Vanco rx to dose) 1 ea DAILY PRN MISC Per rx protocol 04/03/19 23:30 05/03/19 23:29 Vancomycin HCl 1 gm/Sodium Chloride 275 ml @ 183.708 mls/hr Q12H IVPB 04/04/19 02:30 04/09/19 02:29 04/04/19 02:54 GI: Plan Problems: (1) Encounter for PEG (percutaneous endoscopic gastrostomy) (2) Sepsis (3) Failure to thrive in adult Plan PEG to scheduled when cleared by ID. ST evaluation okay to advance diet per recommendation, Marinol as 3 times daily anemia work up OB stool r/o GI bleed monitor H&H, prn transfusions bowel regimen ppi fu labs we will follow with additional recommendations postprocedure Discussed with Dr. Baron. Thank you for this patient referral, we will follow. The patient was seen and examined at bedside and all new and available data was reviewed in the patients chart. I agree with the above findings, impression and plan. (Patient seen earlier today. Signature stamp does not reflect patient encounter time.). - MD Deidre AlvarengaBanner Ocotillo Medical CenterElmer MOLD MAKER APPRENTICE Apr 04, 2019 08:47
--- NOTE | 2019-04-04 10:45 | NUR ---
PT NOTE Attempted x2 to see patient for PT evaluation. Received patient with eyes closed, arousable to verbal stimuli and opens eyes briefly, but then closes eyes and does not respond to therapist's questions. Patient unable to participate with PT evaluation at this time. Ana MARTIN notified, will follow up tomorrow.
[2019-04-04 12:00] VITALS: BP 100/60
--- NOTE | 2019-04-04 12:23 | Diagnostic Imaging Report ---
Indication: Abnormal chest sounds Technique: One view of the chest Comparison: 04/03/2019 Findings: Again demonstrated is near complete opacification of the right hemithorax, presumably due to large pleural effusion and parenchymal atelectasis. There is minimal residual aerated lung, amount of which is unchanged. Left lung and pleural space remain clear. The aorta is tortuous. The heart size is impossible to assess Impression: Unchanged near-complete opacification of the right hemithorax, over one day
--- NOTE | 2019-04-04 13:44 | NUR ---
NOTE: REFERRED FOR SWALLOW EVALUATION BY DR HARO (INITIALLY ORDER SAID SPEECH BUT RN CORRECTED IT TO SWALLOW EVAL SINCE PT HAS DYSPHAGIA AND TO HAVE PEG TOMORROW). SEE FULL REPORT TO FOLLOW IN CARE ACTIVITY SECTION. DYSPHAGIA RISK FACTORS FOR THIS 68 Y.O.M.: ACUTE FTT AND HASN'T EATEN FOR 2 DAYS, LUNGS PLEURAL EFFUSION OR ATELECTATIS OR OTHER. ON ROOM AIR RR 20 H/O MILD-MOD OROPHARYNGEAL DYSPHAGIA, GERD (ON PEPCID), DEMENTIA, BRAIN TUMOR CEREBELLUM CRANIOTOMY S/P CHEMO AND RADIATION, ADENOCARCINOMA (S/P REVISION 12/2018), CEREBRAL EDEMA, OBSTRUCTIVE HYDROCEPHALUS, METS TO LUNGS CANCER, SEPSIS, PNA, MODERATE PROTEIN-RHODA MALNUTRITION, COPD, HTN, NIDDM, FORMER SMOKER, CARDIAC AND RESP DISORDERS. POLST OK FOR TF (PEG PLANNED TOMORROW FOR FTT) SE[place] [facility] [place] AND AT THAT TIME HE HAD LUNG INFILTRATE AND SEPSIS AND HAD MILD-MOD OP DYSPHAGIA BUT HAD POOR AND VARIABLE INTAKE ON PUREED AND NECTAR THICK LIQUID DIET. MOD BARIUM SWALLOW REC AND HE REFUSED. DTR WANTED HIM TO BE ON APPETITE STIM AND UPGRADED TO SOFT CHEW AND THIN LIQUIDS FOR QUALITY OF LIFE. AT SNF ON A CCHO-MED SOFT CHEW DIET AND NECTAR THICK LIQUIDS NOW ON A LOW NA PUREED AND NECTAR THICK LIQUIDS WITH 10 TO 25% INTAKE CURRENTLY ALERT BUT INITIALLY REFUSED PO TRIALS. DID NOT FOLLOW ORAL COMMANDS. EDENTULOUS. INITIAL IMPRESSIONS: MILD-MODERATE AND PERSISTENT OROPHARYNGEAL DYSPHAGIA WITH MILD-MOD INCREASE IN ORAL PREP AND OROPHARYNGEAL TRANSIT TIMES. WITH TSP PUREED, CHEWS IT FOR 10-15 SECONDS, SWALLOWS WITH FAIR HYOLARYNGEAL EXCURSION, CONTINUES TO CHEW FOR 10 SEC AND SWALLOWS (DID NOT ALLOW ORAL INSPECTION SO RESIDUE ORAL/PHARYNGEAL OR BOTH). GIVEN SIP OF THIN LIQUIDS VIA STRAW SEQUENTIAL SIPS (3 OZ WATER PRITESH SWALLOW PROTOCOL) MILD INCREASE IN OROPHARYNGEAL TRANSIT TIMES, FAIR HYOLARYNGEAL EXCURSION, NO ORAL RESIDUE AND NO OVERT S/S OF ASPIRATION BUT HAS SILENT ASPIRATION RISK. POOR INTAKE RECOMMENDATIONS: FOR QUALITY OF LIFE, CONTINUE WITH CURRENT PUREED DIET BUT MAKE MOISTER (SEND GRAVY) AND THIN LIQUIDS WITH POSTED ASP/REFLUX PRECAUTIONS AND ONE TO ONE FEEDING. SEND HIGH RHODA SUP PER RD. DIET TYPE PER RD NOW ON LOW NA ADD CCHO-MED PER SNF DIET UNTIL RD RECOMMENDS DIET TYPE (? MAY LIBERALIZE DUE TO MIN INTAKE) PEG TOMORROW PER RN CONSIDER MOD BARIUM SWALLOW STUDY AFTER PEG PLACEMENT AND ONLY IF RECEPTIVE PT REFUSED STUDY DURING LAST ADMIT. EDUCATED/TRAINED STAFF AND PATIENT IN POSTED ASPIRATION/REFLUX PRECAUTIONS. SKILLED DYSPHAGIA MANAGEMENT AND TX COG-COM EVAL/TX D/W MD/PT WHO IS CONFUSED AND MIN VERBAL/RN CABLE RIGGER NOT AVAILABLE.
--- NOTE | 2019-04-04 14:13 | NUR ---
RD ASSESSMENT & RECOMMENDATIONS SEE CARE ACTIVITY FOR COMPLETE ASSESSMENT DAILY ESTIMATED NEEDS: Needs based on Cancer, 63.6kg 25-30 kcals/kg 1562-2018 total kcals 1-1.5 g protein/kg 64-95 g total protein 25-30 mL/kg 1431-9197 total fluid mLs NUTRITION DIAGNOSIS: Swallowing difficulty R/T dysphagia, h/o malignant brain tumor, s/p cerebellum craniotomy as evidenced by pt on pureed, NTL per TIMBER WATCHMAN rec, adm w/ FTT and poor po [employer], pt now w/ pending PEG placement. (CURRENT DIET: Low Na pureed, NTL) PO DIET RECOMMENDATIONS: LIBERALIZED REGULAR ORAL GRAT (texture per TIMBER WATCHMAN) ENTERAL NUTRITION RECOMMENDATIONS--->>> Glucerna 1.2 @60ml/hr x24 hrs to provide 1440ml, 1728 kcal, 86g pro, 1159ml free H2O, - As medically able post GT placement, start TF at low rate-> Pt at high risk for refeeding as adm w/ poor po intake x2 days - Initiate TF @20ml/hr for 6 hrs. Advance as tolerated 10ml/hr q4-6 hrs to goal rate of 60ml - Flush per MD. HOB over 30 degrees - TF AT GOAL MEETS 100% est needs -------- ADDITIONAL RECOMMENDATIONS: * UPDATED CALIBRATED BED SCALE WEIGHT- ADM W/ CONFLICTING WEIGHTS (1) EMR wt: 140# (2) BED wt: 118.6# (3) Recent adm wt: 149# * TF recs as above POST GT placement * Monitor lytes and hydration status daily, replete as needed * NISS for coverage and glycemic control w/ TF
--- NOTE | 2019-04-04 14:39 | NUR ---
NURSE NOTES: Patient is calm. Patient following commands, not observed trying to pull devices. Dr. Gifford notified. New order to DC restraints received.
--- NOTE | 2019-04-04 14:49 | General Progress Note ---
Assessment/Plan Status: stable Assessment/Plan: 68 y/o male with dementia who is re admitted to the hospital for failure to thrive and need of PEG which family now agrees to. #Sepsis of unknown source - SNF resident will continue Vancomycin and Cefepime and Flagyl per ID recs. -Follow up blood cx - ID consult appreciated. NEED CLEARANCE to determine proper timing for PEG procedure due to severe protein caloric malnutrition. PENDING. -History of Sepsis due to pseudomonas UTI in the past. -CTM # Hypokalemia - Replete 40 meq KCL - Continue IVF with20 meq KCl per lt and re address in AM #HIstory of anemia likely 2/2 GI source and IDRIS -Gi Consult and FOBT pending. -Venofer was given last admission -Hb acceptable and > 8 today - #Diabetes mellitus -ISS -carb controlled feeding -FSG QAC and hs #Hypertension -BP better control, will monitor #BPH -cont flomax #Metastatic lung cancer -No intervention. # Agitation due to underlying dementia - Monitor and consider psychiatry if needed - Restraints as needed for safety and avoidance of self harm or removing medical devices. Today, he is cooperative and per RN restrains not needed at this time. Code: DNAR Subjective ROS Limited/Unobtainable: Yes Allergies: Coded Allergies: PENICILLINS (Verified Allergy, Unknown, 03/21/19) Objective Last 24 Hour Vital Signs Date Time Temp Pulse Resp B/P (MAP) Pulse Ox O2 Delivery O2 Flow Rate FiO2 04/04/19 12:00 98.3 111 20 100/60 (73) 96 04/04/19 08:00 Room Air 04/04/19 08:00 111 04/04/19 08:00 98.1 110 20 100/59 (73) 95 04/04/19 04:09 97.8 113 20 96/55 (69) 97 04/04/19 04:00 117 04/04/19 00:00 115 04/04/19 00:00 98.0 125 20 113/69 (84) 98 04/03/19 21:00 Room Air 04/03/19 20:00 97.6 115 20 106/63 (77) 94 04/03/19 20:00 112 04/03/19 18:39 109 04/03/19 18:00 Room Air 04/03/19 16:00 97.7 112 20 115/75 (88) 95 04/03/19 15:57 98.6 113 22 93/53 95 Room Air 04/03/19 15:40 98.6 113 22 93/53 95 Room Air Intake and Output 04/03/19 04/04/19 19:00 07:00 Intake Total 1175 ml Output Total 0 ml 201 ml Balance 1175 ml -201 ml Intake Oral 120 ml IV Total 1055 ml Output Urine Total 0 ml 200 ml Stool Total 1 ml # Bowel Movements 1 Laboratory Tests 04/04/19 05:26: White Blood Count 20.8H, Red Blood Count 2.92L, Hemoglobin 7.7L, Hematocrit 25.8L, Mean Corpuscular Volume 88, Mean Corpuscular Hemoglobin 26.4L, Mean Corpuscular Hemoglobin Concent 29.8L, Red Cell Distribution Width 19.6H, Platelet Count 554H, Mean Platelet Volume 4.5L, Neutrophils (%) (Auto) , Lymphocytes (%) (Auto) , Monocytes (%) (Auto) , Eosinophils (%) (Auto) , Basophils (%) (Auto) , Differential Total Cells Counted 100, Neutrophils % ( Manual) 94H, Lymphocytes % (Manual) 1L, Monocytes % (Manual) 5, Eosinophils % ( Manual) 0, Basophils % (Manual) 0, Band Neutrophils 0, Platelet Estimate IncreasedH, Platelet Morphology Normal, Anisocytosis 1+, Prothrombin Time 13.1H , Prothromb Time International Ratio 1.2H, Activated Partial Thromboplast Time 37H, Sodium Level 147H, Potassium Level 2.9L, Chloride Level 111H, Carbon Dioxide Level 29, Anion Gap 7, Blood Urea Nitrogen 11, Creatinine 0.6, Estimat Glomerular Filtration Rate > 60, Glucose Level 111H, Calcium Level 8.9 Height (Feet): 5 Height (Inches): 5.00 Weight (Pounds): 140 General Appearance: mild distress, cachetic EENT: PERRL/EOMI Cardiovascular: normal rate Respiratory/Chest: normal breath sounds Abdomen: normal bowel sounds Extremities: other - leg contractures Neurologic: 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
--- NOTE | 2019-04-04 15:01 | Infectious Diseases Prog Note ---
Assessment/Plan Assessment/Plan Full consult dictated: A) 1) sepsis, leukocytosis, 2) ? pna vs malignancy 3) ? uti P) 1) vancomycin, cefepime, flagyl 2) check cultures, labs and chest x-ray 3) await ID w/u prior to feeding tube clearance 4) d/w Dr. Gifford Subjective Constitutional: Denies: fever, fatigue HEENT: Denies: congestion Respiratory: Denies: shortness of breath Cardiovascular: Denies: chest pain Gastrointestinal/Abdominal: Denies: nausea, vomiting, diarrhea Allergies: Coded Allergies: PENICILLINS (Verified Allergy, Unknown, 03/21/19) Objective Vital Signs Last 24 Hour Vital Signs Date Time Temp Pulse Resp B/P (MAP) Pulse Ox O2 Delivery O2 Flow Rate FiO2 04/04/19 12:00 107 04/04/19 12:00 98.3 111 20 100/60 (73) 96 04/04/19 08:00 Room Air 04/04/19 08:00 111 04/04/19 08:00 98.1 110 20 100/59 (73) 95 04/04/19 04:09 97.8 113 20 96/55 (69) 97 04/04/19 04:00 117 04/04/19 00:00 115 04/04/19 00:00 98.0 125 20 113/69 (84) 98 04/03/19 21:00 Room Air 04/03/19 20:00 97.6 115 20 106/63 (77) 94 04/03/19 20:00 112 04/03/19 18:39 109 04/03/19 18:00 Room Air 04/03/19 16:00 97.7 112 20 115/75 (88) 95 04/03/19 15:57 98.6 113 22 93/53 95 Room Air 04/03/19 15:40 98.6 113 22 93/53 95 Room Air Height (Feet): 5 Height (Inches): 5.00 Weight (Pounds): 140 General Appearance: no acute distress HEENT: normocephalic, atraumatic, anicteric Respiratory/Chest: decreased breath sounds, crackles/rales, rhonchi - bilaterally Cardiovascular: normal rate, regular rhythm, no gallop/murmur Abdomen: normal bowel sounds, soft, non tender, no organomegaly, non distended Microbiology Date/Time Source Procedure Growth Status 04/03/19 13:31 Urine,Clean Catch Urine Culture - Preliminary NO GROWTH Resulted Laboratory Tests Test 04/04/19 05:26 White Blood Count 20.8 K/UL (4.8-10.8) H Red Blood Count 2.92 M/UL (4.70-6.10) L Hemoglobin 7.7 G/DL (14.2-18.0) L Hematocrit 25.8 % (42.0-52.0) L Mean Corpuscular Volume 88 FL (80-99) Mean Corpuscular Hemoglobin 26.4 PG (27.0-31.0) L Mean Corpuscular Hemoglobin Concent 29.8 G/DL (32.0-36.0) L Red Cell Distribution Width 19.6 % (11.6-14.8) H Platelet Count 554 K/UL (150-450) H Mean Platelet Volume 4.5 FL (6.5-10.1) L Neutrophils (%) (Auto) % (45.0-75.0) Lymphocytes (%) (Auto) % (20.0-45.0) Monocytes (%) (Auto) % (1.0-10.0) Eosinophils (%) (Auto) % (0.0-3.0) Basophils (%) (Auto) % (0.0-2.0) Differential Total Cells Counted 100 Neutrophils % (Manual) 94 % (45-75) H Lymphocytes % (Manual) 1 % (20-45) L Monocytes % (Manual) 5 % (1-10) Eosinophils % (Manual) 0 % (0-3) Basophils % (Manual) 0 % (0-2) Band Neutrophils 0 % (0-8) Platelet Estimate Increased H Platelet Morphology Normal Anisocytosis 1+ Prothrombin Time 13.1 SEC (9.30-11.50) H Prothromb Time International Ratio 1.2 (0.9-1.1) H Activated Partial Thromboplast Time 37 SEC (23-33) H Sodium Level 147 MMOL/L (136-145) H Potassium Level 2.9 MMOL/L (3.5-5.1) L Chloride Level 111 MMOL/L (98-107) H Carbon Dioxide Level 29 MMOL/L (21-32) Anion Gap 7 mmol/L (5-15) Blood Urea Nitrogen 11 mg/dL (7-18) Creatinine 0.6 MG/DL (0.55-1.30) Estimat Glomerular Filtration Rate > 60 mL/min (>60) Glucose Level 111 MG/DL (74-106) H Calcium Level 8.9 MG/DL (8.5-10.1) Current Medications Medications (Trade) Dose Ordered Sig/Stephani Route PRN Reason Start Time Stop Time Status Last Admin Dose Admin Acetaminophen (Tylenol) 650 mg Q4H PRN ORAL Mild Pain (Pain Scale 1-3) 04/03/19 14:00 05/03/19 13:59 Albuterol/ Ipratropium (Albuterol/ Ipratropium) 3 ml Q8H PRN HHN Shortness of Breath 04/03/19 14:00 04/08/19 13:59 Cefepime HCl 2 gm/ Dextrose 110 ml @ 220 mls/hr Q8HR IV 04/03/19 22:00 04/10/19 21:59 04/04/19 14:21 Cefoxitin Sodium 1 gm/Dextrose 55 ml @ 110 mls/hr ONCE ONCE IV 04/05/19 08:45 04/05/19 09:14 Dextrose (Dextrose 50%) 25 ml Q30M PRN IV Hypoglycemia 04/03/19 14:00 05/03/19 13:59 Dextrose (Dextrose 50%) 50 ml Q30M PRN IV Hypoglycemia 04/03/19 14:00 05/03/19 13:59 Dextrose/ Electrolytes 1,000 ml @ 75 mls/hr [id number] IV 04/03/19 19:00 05/03/19 18:59 04/04/19 08:19 Docusate Sodium (Colace) 100 mg EVERY 12 HOURS ORAL 04/03/19 21:00 05/03/19 20:59 04/04/19 08:19 Famotidine (Pepcid I.v.) 20 mg Q12HR IVP 04/03/19 21:00 05/03/19 20:59 04/04/19 08:20 Heparin Sodium (Porcine) (Heparin 5000 units/ml) 5,000 units EVERY 12 HOURS SUBQ 04/03/19 21:00 05/03/19 20:59 04/03/19 21:54 Metronidazole 100 ml @ 100 mls/hr Q8HR IVPB 04/04/19 06:00 04/11/19 05:59 04/04/19 14:55 Morphine Sulfate (Morphine Sulfate) 1 mg Q8H PRN IVP PAIN 4-10 04/03/19 15:00 04/10/19 14:59 Potassium Chloride (K-Dur) 40 meq ONCE ORAL 04/04/19 14:45 04/04/19 15:45 04/04/19 14:55 Temazepam (Restoril) 15 mg HSPRN PRN ORAL Insomnia 04/03/19 21:00 04/10/19 20:59 Vancomycin HCl (Vanco rx to dose) 1 ea DAILY PRN MISC Per rx protocol 04/03/19 23:30 05/03/19 23:29 Vancomycin HCl 1 gm/Sodium Chloride 275 ml @ 183.708 mls/hr Q12H IVPB 04/04/19 02:30 04/09/19 02:29 04/04/19 02:54 Juan Candelaria MD Apr 04, 2019 15:01
[2019-04-04 16:00] VITALS: BP 109/68
[2019-04-04] MEDS ORDERED: Tubing IV Secondary IV ONE (17:32)
[2019-04-04] MEDS ORDERED: NS 275ml ONE (17:32)
--- NOTE | 2019-04-04 18:52 | Cardiology Report ---
APPROVED REPORT EKG Measurement Heart [id number] Sinus tachycardia Low voltage QRS Septal infarct, age undetermined Abnormal ECG
[2019-04-04] MEDS ORDERED: ACETAMINOPHEN325 M1 ORAL (19:06)
--- NOTE | 2019-04-04 19:40 | NUR ---
NURSE NOTES: Noted ID progress notes that say that patient is not cleared for PEG placement. [employer] notified. Per [employer], okay to resume diet in AM. New order received and entered.
--- NOTE | 2019-04-04 19:52 | NUR ---
HAND-OFF: Report given to MARIO Sultana.
--- NOTE | 2019-04-04 19:55 | NUR ---
NURSE NOTES: Received report from MARIO Perez. Patient in bed asleep showing no signs of acute distress. Respiration even and non labored on room air. No sob noted. IV line patent and intact on right wrist running D5 0.45% NS w/ 20meq KCL @75cc/hr. Pt. noted on condom cath. intact, and draining. VS stable. Pt. noted on bilateral +4 pitting edema. Skin is intact. Bed in lowest position, call light within reach, wheels locked and alarm on. All needs attended and met. Will continue plan of care.
[2019-04-04 20:00] VITALS: BP 142/63
--- NOTE | 2019-04-04 22:15 | Consultation ---
DATE OF CONSULTATION: 04/04/2019 INFECTIOUS DISEASE CONSULTATION CONSULTING PHYSICIAN: Juan Candelaria M.D. ATTENDING PHYSICIAN: Peter Henriquez M.D. REFERRING PHYSICIAN: Ana Maria Gifford M.D. REASON FOR CONSULTATION: Possible sepsis, elevated white count, possible pneumonia, possible UTI, and leukocytosis. CHIEF COMPLAINT: The patient's chief complaint coming in to the hospital is failure to thrive. HISTORY OF PRESENT ILLNESS: This is a 68-year-old male, who has history of malignancy. The patient has metastatic lung cancer. The patient presented to [facility] [address] with failure to thrive, weakness, and was noted to have a white count of 20.5 and today it is 20.8. The patient was admitted for possibility of sepsis. The patient has been tachycardic also. Urinalysis is positive and chest x-ray shows a pulmonary process. Infectious Disease consultation was requested for antibiotic management for the sepsis. The patient was empirically started on vancomycin, cefepime, and Flagyl. The patient had been in the hospital recently and is at risk for nosocomial infection. Case was discussed with Dr. Gifford. MAR was noted. Orders were noted. Notes were reviewed. The patient will be continued on vancomycin, cefepime, and Flagyl for now. REVIEW OF SYSTEMS: CONSTITUTIONAL: The patient has generalized fatigue, weakness, and came in with failure to thrive. He has no fevers or pressors. He does have a Barnes. He opens his eyes, somewhat responsive. HEAD AND NECK: No obvious head pain, neck pain, or neck stiffness. CARDIAC: No chest pain. GASTROINTESTINAL: No nausea, vomiting, or diarrhea. GENITOURINARY: He has a Barnes. PULMONARY: He has mild cough and congestion. No significant secretions or hemoptysis. SKIN: No rash or itching. EXTREMITIES: No obvious extremity pain. NEUROLOGIC: No seizures. Review of systems is otherwise limited in this patient. PAST MEDICAL HISTORY: Includes the following. The patient has a past history of metastatic lung cancer. Currently, he is DNR. He has history of dementia. He has history of sepsis in the past. He has history of brain tumor, diabetes mellitus, history of COPD, history of benign prostatic hypertrophy or BPH, history of anemia, history of hypertension, and history of transfusion. He has failure to thrive and will require a feeding tube. MEDICATIONS: Upon reviewing the MAR, he is on following medications. I put him on vancomycin, cefepime, and Flagyl. He is on cefoxitin, which I believe was just given once. Current medications are vancomycin, cefepime, and Flagyl. Rest of the MAR, he is also on acetaminophen. He is on DuoNeb, famotidine, heparin, morphine, potassium, saline, and temazepam. Antibiotics are vancomycin, cefepime, and Flagyl. Outside medications were noted and reconciliated. ALLERGIES: Penicillin. He seems to tolerate cephalosporins. SOCIAL HISTORY: Negative for smoking, alcohol, or drug abuse. FAMILY HISTORY: Noncontributory. Negative for exposure to tuberculosis or cancer. PHYSICAL EXAMINATION: VITAL SIGNS: Temperature is 98.3, pulse rate 111, respiratory rate 20, blood pressure 100/60, saturation 96% on room air. GENERAL: Alert and responsive, mostly nonverbal, but responsive. He is in no acute distress. Mild shortness of breath noted. HEAD AND NECK: Oral exam, no thrush. Eye exam, no icterus. Normocephalic. Neck is supple. No JVD. HEART: Regular. No obvious gallop or murmur. Tachycardic. ABDOMEN: Soft. Positive bowel sounds. Does not seem to be tender. LUNGS: Bilateral rhonchi and possible rales. Decreased breath sounds. SKIN: No rash. MUSCULOSKELETAL: No effusion or septic arthritis. EXTREMITIES: Lower extremity exam, without cellulitis. PERIPHERAL VASCULAR: No gangrene or cyanosis. GENITOURINARY: He has a Barnes. Urine is cloudy. LINE SITES: Without phlebitis. NEUROLOGIC: Generalized weakness and responsive. Opens his eyes. Mostly nonverbal. SKIN: Wounds were reviewed. There are no obvious wounds that I saw anteriorly on the patient. LABORATORY AND DIAGNOSTIC DATA: Laboratory data as follows. White count 20.8 and hemoglobin 7.7. Creatinine is 0.6. LFTs were noted. Urinalysis, 1+ leukocyte esterase and 10-15 white blood cells. White count on admission was 20.5. Urine culture is negative to date. Blood cultures are pending. Imaging studies, chest x-ray shows the following. It shows complete opacification in the right hemithorax. Sputum culture and blood cultures also have been ordered and urine culture is negative to date. ASSESSMENT AND PLAN: 1. The patient has possible sepsis, elevated white count, SIRS criteria, and tachycardia. Source of sepsis at this time is unclear. It is unclear if he has a pneumonia such as an aspiration or healthcare-acquired pneumonia because of recent hospitalization versus community-acquired pneumonia. He has a positive UA and also could have complicated UTI with failure to thrive. He also could have metastatic cancer that is causing leukocytosis. At this time, we will continue empiric antibiotics of vancomycin, cefepime, and Flagyl for MRSA, gram-negative, and anaerobic coverage. Continue vancomycin, cefepime, and Flagyl. Check cultures, laboratories, and chest x-ray. He does not have any diarrhea to check for C. difficile. If his leukocytosis does not improve, consider CAT scan imaging. Await ID workup before clearance for feeding tube. Continue vancomycin, cefepime, and Flagyl pending workup for now for the patient's possible sepsis. 2. The patient has anemia. 3. Failure to thrive. 4. The patient needs feeding tube. 5. The patient has diabetes mellitus. 6. Brain tumor. 7. COPD. 8. BPH. 9. Hypertension. 10. Metastatic lung cancer. 11. Continue treatment per primary consultants including diabetes and hypertension treatment. 12. Social history is negative. 13. Family history is noncontributory. 14. MAR was noted. 15. Case was discussed with Dr. Gifford. 16. Case was discussed with RN. 17. Skin care protocol. 18. Orders were noted and entered. Juan Candelaria M.D. DR: MATT JOB#: [id number] CC:
[2019-04-05] VITALS: BP 130/60
[2019-04-05] MEDS ORDERED: Cefepime 2gm/D5W 110ml IV SCH ×2 (02:00)
[2019-04-05] MEDS ORDERED: Cefepime 1gm in D5W 55ml IVPB SCH (02:00)
[2019-04-05] MEDS: Cefepime HCl 2 GM in D5W 55 ML IV SCH ×2 (02:36→14:00)
[2019-04-05] MEDS: Vancomycin 1.25gm Premix IVPB SCH ×2 (02:56→14:57)
[2019-04-05 04:00] VITALS: BP 136/69
[2019-04-05 05:24] LABS: HEMATOCRIT 25.2 % (42.0-52.0); HEMOGLOBIN 7.5 G/DL (14.2-18.0); MEAN CORPUSCULAR VOLUME 88 FL (80-99); PLATELET COUNT 491 K/UL (150-450); RED BLOOD COUNT 2.86 M/UL (4.70-6.10); RED CELL DISTRIBUTION WIDTH 19.6 % (11.6-14.8); WHITE BLOOD COUNT 14.9 K/UL (4.8-10.8)
[2019-04-05 05:26] LABS: ANION GAP 8 mmol/L (5-15); BLOOD UREA NITROGEN 11 mg/dL (7-18); CALCIUM 8.5 MG/DL (8.5-10.1); CARBON DIOXIDE 29 MMOL/L (21-32); CHLORIDE 109 MMOL/L (98-107); CREATININE 0.6 MG/DL (0.55-1.30); POTASSIUM 3.7 MMOL/L (3.5-5.1); SODIUM 145 MMOL/L (136-145)
[2019-04-05 05:32] LABS: INR 1.1 (0.9-1.1)
--- NOTE | 2019-04-05 07:30 | NUR ---
CASE MANAGEMENT:REVIEW 04/05/19 SI: SEPSIS. H/O METASTATIC LUNG CA 97.1 94 19 136/69 95% ON RA WBC+14.9 H/H-7.5/25.2 IS: IV CEFOXITIN X1 IV VANCOMYCIN Q12 IV CEFEPIME Q12 IV FLAGYL Q8HRS IVF@75/HR : TELEMETRY STATUS DCP: FROM [facility]
--- NOTE | 2019-04-05 07:32 | NUR ---
HAND-OFF: Report given to MARIO Cohn.
--- NOTE | 2019-04-05 07:36 | NUR ---
NURSE NOTES: Received report from MARIO Gan. Patient in bed resting, no active s/s cardiac, respiratory distress noticed at this time. Patient AOx1, open eyes on verbal stimulus, SR with HR 98, IV on left wrist 22G, asymptomatic, patent, intact, IV fluid running at prescribed rate. Bed in lowest position, side rails upx3, call light within reach, bed alarm on. Will continue to monitor.
[2019-04-05 08:00] VITALS: BP 110/72
--- NOTE | 2019-04-05 08:34 | NUR ---
NURSE NOTES: Paged Dr. Gifford regarding Hgb level, no order given at this time. Will continue to monitor.
[2019-04-05] MEDS: Docusate 100mg cap ORAL SCH ×2 (08:39→21:40)
[2019-04-05] MEDS ORDERED: cefOXitin Sod 1 GM in D5W 55 ML IV ONE (08:45)
[2019-04-05] MEDS: Heparin 5000 units/ml inj SUBQ SCH ×2 (09:00→21:41)
--- NOTE | 2019-04-05 09:20 | NUR ---
PT EVALUATION NOTE Patient seen for initial evaluation, see complete evaluation for details. Patient presents with decreased strength, impaired balance, decreased safety awareness and impaired functional mobility. Patient will benefit from skilled inpatient PT intervention to address strength, safety and balance for improved functional mobility. Recommend discharge to SNF once medically cleared by MD. Addendum: 04/05/19 at 1057 by ALLYSSA IBARRA PT Amended: Links added.
--- NOTE | 2019-04-05 10:28 | GI Progress Note ---
Assessment/Plan Problems: (1) Encounter for PEG (percutaneous endoscopic gastrostomy) ICD Codes: Z43.1 - Encounter for attention to gastrostomy SNOMED: 616838909, 438403524 (2) Failure to thrive in adult ICD Codes: R62.7 - Adult failure to thrive SNOMED: 801043495 (3) Sepsis ICD Codes: A41.9 - Sepsis, unspecified organism SNOMED: 96085474 Status: unchanged Status Narrative Discussed with Dr. Baron. Assessment/Plan PEG to scheduled when cleared by ID. ST evaluation okay to advance diet per recommendation, Marinol as 3 times daily anemia work up OB stool r/o GI bleed monitor H&H, prn transfusions bowel regimen ppi fu labs we will follow with additional recommendations postprocedure The patient was seen and examined at bedside and all new and available data was reviewed in the patients chart. I agree with the above findings, impression and plan. (Patient seen earlier today. Signature stamp does not reflect patient encounter time.). - Bronson Baron MD Subjective Subjective Limited Objective Last 24 Hour Vital Signs Date Time Temp Pulse Resp B/P (MAP) Pulse Ox O2 Delivery O2 Flow Rate FiO2 04/05/19 09:00 Room Air 04/05/19 08:00 105 04/05/19 08:00 97.4 97 18 110/72 (85) 98 04/05/19 04:00 98 04/05/19 04:00 97.1 94 19 136/69 (91) 95 04/05/19 00:00 98.0 99 17 130/60 (83) 91 04/05/19 00:00 91 04/04/19 21:00 Room Air 04/04/19 20:47 98.0 04/04/19 20:00 97 04/04/19 20:00 98.0 104 17 142/63 (89) 92 04/04/19 16:00 99.0 111 20 109/68 (82) 98 04/04/19 16:00 118 04/04/19 12:00 107 04/04/19 12:00 98.3 111 20 100/60 (73) 96 Intake and Output 04/04/19 04/05/19 19:00 07:00 Intake Total 320 ml Output Total 250 ml Balance 70 ml Intake Oral 320 ml Output Urine Total 250 ml # Voids 1 # Bowel Movements 1 Laboratory Tests Test 04/05/19 01:30 04/05/19 04:30 Vancomycin Level Trough 11.4 ug/mL (5.0-12.0) White Blood Count 14.9 K/UL (4.8-10.8) H Red Blood Count 2.86 M/UL (4.70-6.10) L Hemoglobin 7.5 G/DL (14.2-18.0) L Hematocrit 25.2 % (42.0-52.0) L Mean Corpuscular Volume 88 FL (80-99) Mean Corpuscular Hemoglobin 26.0 PG (27.0-31.0) L Mean Corpuscular Hemoglobin Concent 29.6 G/DL (32.0-36.0) L Red Cell Distribution Width 19.6 % (11.6-14.8) H Platelet Count 491 K/UL (150-450) H Mean Platelet Volume 4.3 FL (6.5-10.1) L Neutrophils (%) (Auto) % (45.0-75.0) Lymphocytes (%) (Auto) % (20.0-45.0) Monocytes (%) (Auto) % (1.0-10.0) Eosinophils (%) (Auto) % (0.0-3.0) Basophils (%) (Auto) % (0.0-2.0) Differential Total Cells Counted 100 Neutrophils % (Manual) 95 % (45-75) H Lymphocytes % (Manual) 3 % (20-45) L Monocytes % (Manual) 2 % (1-10) Eosinophils % (Manual) 0 % (0-3) Basophils % (Manual) 0 % (0-2) Band Neutrophils 0 % (0-8) Platelet Estimate Adequate Platelet Morphology Normal Hypochromasia 1+ Anisocytosis 1+ Prothrombin Time 12.1 SEC (9.30-11.50) H Prothromb Time International Ratio 1.1 (0.9-1.1) Activated Partial Thromboplast Time 34 SEC (23-33) H Sodium Level 145 MMOL/L (136-145) Potassium Level 3.7 MMOL/L (3.5-5.1) Chloride Level 109 MMOL/L (98-107) H Carbon Dioxide Level 29 MMOL/L (21-32) Anion Gap 8 mmol/L (5-15) Blood Urea Nitrogen 11 mg/dL (7-18) Creatinine 0.6 MG/DL (0.55-1.30) Estimat Glomerular Filtration Rate > 60 mL/min (>60) Glucose Level 134 MG/DL (74-106) H Calcium Level 8.5 MG/DL (8.5-10.1) Height (Feet): 5 Height (Inches): 5.00 Weight (Pounds): 119 General Appearance: WD/WN, no apparent distress, alert Cardiovascular: normal rate Respiratory/Chest: normal breath sounds, no respiratory distress Abdominal Exam: normal bowel sounds, non tender, soft Extremities: non-tender Luis Angel Jiang NP Apr 05, 2019 10:28
[2019-04-05] MEDS: D5 1/2NS w/KCl 20mEq 1,000 ML IV SCH ×2 (11:05→18:27)
--- NOTE | 2019-04-05 11:50 | NUR ---
NURSE NOTES: Called Dr. Gifford regarding Hgb, spoke with Rom, Awaiting for callback. Will continue to monitor.
--- NOTE | 2019-04-05 11:53 | NUR ---
NURSE NOTES: Called Md Gifford, left a mssg regarding low HGB 7.5 and HCT 25.2 and needing PRBCs
[2019-04-05 12:00] VITALS: BP 118/67
--- NOTE | 2019-04-05 12:18 | NUR ---
NURSE NOTES: Md called back and gave order for 1 unit of PRBCs to be given, called daughter ROVERTO to get phone consent lm.
[2019-04-05 16:00] VITALS: BP 111/75
--- NOTE | 2019-04-05 16:56 | NUR ---
RESPIRATORY NOTE: Attempted to obtain sputum, but patient refused. RN notified.
--- NOTE | 2019-04-05 17:27 | General Progress Note ---
Assessment/Plan Status: unchanged Assessment/Plan: 68 y/o male with dementia who is re admitted to the hospital for failure to thrive and need of PEG which family now agrees to. #Sepsis of unknown source - SNF resident will continue Vancomycin and Cefepime and Flagyl per ID recs. ? need for PICC or terminal computer operator antibiotic. Patient has L hand IV and is starting to develop edema. -Follow up blood cx - ID consult appreciated. NEED CLEARANCE to determine proper timing for PEG procedure due to severe protein caloric malnutrition. PENDING. -History of Sepsis due to pseudomonas UTI in the past. -CTM - HL IVF now. # Hypokalemia - Resolved. #HIstory of anemia likely 2/2 GI source and IDRIS -Gi Consult and FOBT pending. -Venofer was given last admission -Hb acceptable and > 8 today - #Diabetes mellitus -ISS -carb controlled feeding -FSG QAC and hs #Hypertension -BP better control, will monitor #BPH -cont flomax #Metastatic lung cancer -No intervention. # Agitation due to underlying dementia - Monitor and consider psychiatry if needed - Restraints as needed for safety and avoidance of self harm or removing medical devices. Today, he is cooperative and per RN restrains not needed at this time. Code: DNAR Subjective ROS Limited/Unobtainable: Yes Allergies: Coded Allergies: PENICILLINS (Verified Allergy, Unknown, 03/21/19) Objective Last 24 Hour Vital Signs Date Time Temp Pulse Resp B/P (MAP) Pulse Ox O2 Delivery O2 Flow Rate FiO2 04/05/19 12:00 99 04/05/19 12:00 97.5 110 20 118/67 (84) 95 04/05/19 09:00 Room Air 04/05/19 08:00 105 04/05/19 08:00 97.4 97 18 110/72 (85) 98 04/05/19 04:00 98 04/05/19 04:00 97.1 94 19 136/69 (91) 95 04/05/19 00:00 98.0 99 17 130/60 (83) 91 04/05/19 00:00 91 04/04/19 21:00 Room Air 04/04/19 20:47 98.0 04/04/19 20:00 97 04/04/19 20:00 98.0 104 17 142/63 (89) 92 Intake and Output 04/04/19 04/05/19 18:59 06:59 Intake Total 320 ml Output Total 250 ml Balance 70 ml Intake Oral 320 ml Output Urine Total 250 ml # Voids 1 # Bowel Movements 1 Laboratory Tests 04/05/19 01:30: Vancomycin Level Trough 11.4 04/05/19 04:30: White Blood Count 14.9H, Red Blood Count 2.86L, Hemoglobin 7.5L, Hematocrit 25.2L, Mean Corpuscular Volume 88, Mean Corpuscular Hemoglobin 26.0L, Mean Corpuscular Hemoglobin Concent 29.6L, Red Cell Distribution Width 19.6H, Platelet Count 491H, Mean Platelet Volume 4.3L, Neutrophils (%) (Auto) , Lymphocytes (%) (Auto) , Monocytes (%) (Auto) , Eosinophils (%) (Auto) , Basophils (%) (Auto) , Differential Total Cells Counted 100, Neutrophils % ( Manual) 95H, Lymphocytes % (Manual) 3L, Monocytes % (Manual) 2, Eosinophils % ( Manual) 0, Basophils % (Manual) 0, Band Neutrophils 0, Platelet Estimate Adequate, Platelet Morphology Normal, Hypochromasia 1+, Anisocytosis 1+, Prothrombin Time 12.1H, Prothromb Time International Ratio 1.1, Activated Partial Thromboplast Time 34H, Sodium Level 145, Potassium Level 3.7, Chloride Level 109H, Carbon Dioxide Level 29, Anion Gap 8, Blood Urea Nitrogen 11, Creatinine 0.6, Estimat Glomerular Filtration Rate > 60, Glucose Level 134H, Calcium Level 8.5 Height (Feet): 5 Height (Inches): 5.00 Weight (Pounds): 119 General Appearance: WD/WN, mild distress EENT: PERRL/EOMI Cardiovascular: normal rate Respiratory/Chest: decreased breath sounds, crackles/rales Abdomen: non tender 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
--- NOTE | 2019-04-05 17:30 | NUR ---
NURSE NOTES: Dr. Gifford at the nursing station made aware patient has bilateral upper extremities edema, no order given at this time. Will continue to monitor.
--- NOTE | 2019-04-05 18:00 | NUR ---
NURSE NOTES: Dr. Gifford made aware patient combative, observed removing device. Per Dr. Gifford, bilateral soft restraints while transfusion. Order noted, entered, carried out. Will continue to monitor.
--- NOTE | 2019-04-05 19:55 | NUR ---
HAND-OFF: Report given to MARIO Watts. Endorse patient begin transfusion 175. No reaction noticed at this time.
[2019-04-05 20:00] VITALS: BP 121/82
--- NOTE | 2019-04-05 20:00 | NUR ---
NURSE NOTES: pt in bed, daughter at bedside, pt alert but not verbal. blood transfusion infusing, no adverse reaction noted. falling precaution in place: bed locked an lowest position. bedside rail up x2, restraints in place only during transfusion. will round pt hourly to ensure pt safety and assess for any change in condition.
[2019-04-06] VITALS: BP 129/88
--- NOTE | 2019-04-06 | NUR ---
NURSE NOTES: blood transfusion done, no adverse reaction noted. pt sleeping. will continue to monitor for any change in condition.
[2019-04-06] MEDS: Cefepime HCl 2 GM in D5W 55 ML IV SCH ×2 (03:01→14:41)
[2019-04-06] MEDS: Vancomycin 1.25gm Premix IVPB SCH ×2 (03:06→15:35)
[2019-04-06 04:00] VITALS: BP 148/69
--- NOTE | 2019-04-06 04:00 | NUR ---
NURSE NOTES: pt trying to fight nurses, trying to pull IV and taking off telemonitor, restrains in place. CMS intact. no change in condition. will continue to monitor for any change in condition.
--- NOTE | 2019-04-06 06:49 | NUR ---
NURSE NOTES: pt remains stable, no change in condition. restraints in place,CMS intact. falling precaution in place: bed locked and lowest position, bedside rail up x2, call light within reach. all needs met during my shift. will endorse plan of care to incoming nurse.
[2019-04-06 07:13] LABS: HEMATOCRIT 29.1 % (42.0-52.0); HEMOGLOBIN 8.9 G/DL (14.2-18.0); MEAN CORPUSCULAR VOLUME 87 FL (80-99); PLATELET COUNT 491 K/UL (150-450); RED BLOOD COUNT 3.34 M/UL (4.70-6.10); RED CELL DISTRIBUTION WIDTH 18.5 % (11.6-14.8); WHITE BLOOD COUNT 15.5 K/UL (4.8-10.8)
[2019-04-06 07:41] LABS: ANION GAP 8 mmol/L (5-15); BLOOD UREA NITROGEN 9 mg/dL (7-18); CALCIUM 8.6 MG/DL (8.5-10.1); CARBON DIOXIDE 28 MMOL/L (21-32); CHLORIDE 106 MMOL/L (98-107); CREATININE 0.5 MG/DL (0.55-1.30); POTASSIUM 3.1 MMOL/L (3.5-5.1); SODIUM 142 MMOL/L (136-145)
[2019-04-06 08:00] VITALS: BP 131/77
--- NOTE | 2019-04-06 08:27 | NUR ---
pt. in bed awake Aox1. pt on monitor technician no signs of cardiac or respiratory distress. Pt has condom cath. Pt is on restrains bed is locked and in lowest position. Call light within reach. Will continue to monitor pt. and follow plan of car.
[2019-04-06] MEDS: Docusate 100mg cap ORAL SCH ×2 (10:13→21:28)
[2019-04-06] MEDS: Heparin 5000 units/ml inj SUBQ SCH ×2 (10:13→21:00)
--- NOTE | 2019-04-06 11:00 | NUR ---
PT NOTE Attempted to see patient for PT treatment. Patient declining to participate with PT at this time. Will re-attempt later as schedule permits, Elizabeth MARTIN notified.
--- NOTE | 2019-04-06 11:43 | GI Progress Note ---
Assessment/Plan Problems: (1) Encounter for PEG (percutaneous endoscopic gastrostomy) ICD Codes: Z43.1 - Encounter for attention to gastrostomy SNOMED: 916824315, 404980540 (2) Failure to thrive in adult ICD Codes: R62.7 - Adult failure to thrive SNOMED: 229897140 (3) Sepsis ICD Codes: A41.9 - Sepsis, unspecified organism SNOMED: 81036937 Status: unchanged Status Narrative Discussed with Dr. Baron. Assessment/Plan PEG to scheduled when cleared by ID, will tentatively place NPO @ [place] today. ST evaluation okay to advance diet per recommendation, Marinol as 3 times daily OB stool r/o GI bleed monitor H&H, prn transfusions bowel regimen ppi fu labs we will follow with additional recommendations postprocedure The patient was seen and examined at bedside and all new and available data was reviewed in the patients chart. I agree with the above findings, impression and plan. (Patient seen earlier today. Signature stamp does not reflect patient encounter time.). - Bronson Baron MD Subjective Subjective Limited Objective Last 24 Hour Vital Signs Date Time Temp Pulse Resp B/P (MAP) Pulse Ox O2 Delivery O2 Flow Rate FiO2 04/06/19 11:20 101 18 94 Room Air 04/06/19 11:14 94 99 Room Air 04/06/19 08:00 96.8 97 20 131/77 (95) 97 04/06/19 04:00 98.2 88 18 148/69 (95) 97 04/06/19 04:00 108 04/06/19 00:00 95 04/06/19 00:00 97.7 101 20 129/88 (102) 94 04/05/19 21:00 Room Air 04/05/19 20:00 108 04/05/19 20:00 97.6 110 20 121/82 (95) 96 04/05/19 16:00 100 04/05/19 16:00 97.7 103 18 111/75 (87) 96 04/05/19 12:00 99 04/05/19 12:00 97.5 110 20 118/67 (84) 95 Intake and Output 04/05/19 04/06/19 19:00 07:00 Intake Total 50 ml Output Total 251 ml Balance -201 ml Intake Oral 50 ml Output Urine Total 250 ml Stool Total 1 ml # Voids 2 2 # Bowel Movements 1 Laboratory Tests Test 04/06/19 05:24 White Blood Count 15.5 K/UL (4.8-10.8) H Red Blood Count 3.34 M/UL (4.70-6.10) L Hemoglobin 8.9 G/DL (14.2-18.0) L Hematocrit 29.1 % (42.0-52.0) L Mean Corpuscular Volume 87 FL (80-99) Mean Corpuscular Hemoglobin 26.7 PG (27.0-31.0) L Mean Corpuscular Hemoglobin Concent 30.7 G/DL (32.0-36.0) L Red Cell Distribution Width 18.5 % (11.6-14.8) H Platelet Count 491 K/UL (150-450) H Mean Platelet Volume 4.9 FL (6.5-10.1) L Neutrophils (%) (Auto) % (45.0-75.0) Lymphocytes (%) (Auto) % (20.0-45.0) Monocytes (%) (Auto) % (1.0-10.0) Eosinophils (%) (Auto) % (0.0-3.0) Basophils (%) (Auto) % (0.0-2.0) Differential Total Cells Counted 100 Neutrophils % (Manual) 93 % (45-75) H Lymphocytes % (Manual) 5 % (20-45) L Monocytes % (Manual) 2 % (1-10) Eosinophils % (Manual) 0 % (0-3) Basophils % (Manual) 0 % (0-2) Band Neutrophils 0 % (0-8) Platelet Estimate Adequate Platelet Morphology Normal Hypochromasia 2+ Anisocytosis 2+ Sodium Level 142 MMOL/L (136-145) Potassium Level 3.1 MMOL/L (3.5-5.1) L Chloride Level 106 MMOL/L (98-107) Carbon Dioxide Level 28 MMOL/L (21-32) Anion Gap 8 mmol/L (5-15) Blood Urea Nitrogen 9 mg/dL (7-18) Creatinine 0.5 MG/DL (0.55-1.30) L Estimat Glomerular Filtration Rate > 60 mL/min (>60) Glucose Level 168 MG/DL (74-106) H Calcium Level 8.6 MG/DL (8.5-10.1) Height (Feet): 5 Height (Inches): 5.00 Weight (Pounds): 119 Luis Angel Jiang NP Apr 06, 2019 11:43
[2019-04-06 12:00] VITALS: BP 131/96
[2019-04-06] MEDS: D5 1/2NS w/KCl 20mEq 1,000 ML IV SCH (12:39)
--- NOTE | 2019-04-06 13:40 | NUR ---
NURSE NOTES: Per Rimma @ pharmacy Cefepine ok to run on its own, no data to compare if reacts with D5 1/2 ns w/ KCL 20MEQ. Ok to run Vanco and Metronidazole with D5 1/2 ns w/ KCL 20MEQ.
--- NOTE | 2019-04-06 15:53 | NUR ---
NURSE NOTES:WOUND CARE NOTES:PT noted to have non-blanchable erythema with shearing Sacrococcygeal area.no fluctuance or induration noted when site palpated. Both heels are blanchable but fluctuant with thick peeling skin. Both heels non-tender when palpated. No other skin concerns noted.Pt is emaciated secondary to failure to thrive. Dailon Skin Barrier applied to R and L hips protruding bony prominences. Tx.Plan: Apply Moisture Barrier paste to Sacrum . Cover with Optifoam drsg. Change every 3 days and prn. Apply Moisture Barrier Paste to scrotum and both ischial regions with each incontinence care. Apply Cavilon Skin Barrier to R and L hips/trochanters. Cover each site with Optifoam drsg. Change every 7 days and prn. Apply Cavilon Skin Barrier both heels. Cover each heel with Optifoam drsg. Change every 7 days and prn. APM/JOHNNY Mattress overlay. Reposition at least every 2hours or as tolerated. Off-load heels with pillow.
[2019-04-06 16:00] VITALS: BP 146/96
--- NOTE | 2019-04-06 17:57 | General Progress Note ---
Assessment/Plan Status: unchanged Assessment/Plan: 68 y/o male with dementia who is re admitted to the hospital for failure to thrive and need of PEG which family now agrees to. #Sepsis of unknown source - SNF resident will continue Vancomycin and Cefepime and Flagyl per ID recs. ? need for PICC or intermediate school teacher antibiotic. Patient has L hand IV and is starting to develop edema. -Follow up blood cx - ID consult appreciated. Verbal approval for PEG noted today. Final note pending. GI service updated and goal is PEG tomorrow. -History of Sepsis due to pseudomonas UTI in the past. -CTM - IVF will be continued # Hypokalemia - Resolved. #HIstory of anemia likely 2/2 GI source and IDRIS -Gi Consult and FOBT pending. -Venofer was given last admission -Hb acceptable and > 8 today - #Diabetes mellitus -ISS -carb controlled feeding -FSG QAC and hs #Hypertension -BP better control, will monitor #BPH -cont flomax #Metastatic lung cancer -No intervention. # Agitation due to underlying dementia - Monitor and consider psychiatry if needed - Restraints as needed for safety and avoidance of self harm or removing medical devices. Today, he is cooperative and per RN restrains not needed at this time. Code: DNAR Subjective Allergies: Coded Allergies: PENICILLINS (Verified Allergy, Unknown, 03/21/19) All Systems: reviewed and negative except above Objective Last 24 Hour Vital Signs Date Time Temp Pulse Resp B/P (MAP) Pulse Ox O2 Delivery O2 Flow Rate FiO2 04/06/19 16:00 97.8 110 20 146/96 (113) 100 04/06/19 12:00 113 04/06/19 12:00 97.8 98 20 131/96 (108) 96 04/06/19 11:20 101 18 94 Room Air 04/06/19 11:14 94 99 Room Air 04/06/19 09:00 Room Air 04/06/19 08:00 91 04/06/19 08:00 96.8 97 20 131/77 (95) 97 04/06/19 04:00 98.2 88 18 148/69 (95) 97 04/06/19 04:00 108 04/06/19 00:00 95 04/06/19 00:00 97.7 101 20 129/88 (102) 94 04/05/19 21:00 Room Air 04/05/19 20:00 108 04/05/19 20:00 97.6 110 20 121/82 (95) 96 Intake and Output 04/05/19 04/06/19 19:00 07:00 Intake Total 50 ml Output Total 251 ml Balance -201 ml Intake Oral 50 ml Output Urine Total 250 ml Stool Total 1 ml # Voids 2 2 # Bowel Movements 1 Laboratory Tests 04/06/19 05:24: White Blood Count 15.5H, Red Blood Count 3.34L, Hemoglobin 8.9L, Hematocrit 29.1L, Mean Corpuscular Volume 87, Mean Corpuscular Hemoglobin 26.7L, Mean Corpuscular Hemoglobin Concent 30.7L, Red Cell Distribution Width 18.5H, Platelet Count 491H, Mean Platelet Volume 4.9L, Neutrophils (%) (Auto) , Lymphocytes (%) (Auto) , Monocytes (%) (Auto) , Eosinophils (%) (Auto) , Basophils (%) (Auto) , Differential Total Cells Counted 100, Neutrophils % ( Manual) 93H, Lymphocytes % (Manual) 5L, Monocytes % (Manual) 2, Eosinophils % ( Manual) 0, Basophils % (Manual) 0, Band Neutrophils 0, Platelet Estimate Adequate, Platelet Morphology Normal, Hypochromasia 2+, Anisocytosis 2+, Sodium Level 142, Potassium Level 3.1L, Chloride Level 106, Carbon Dioxide Level 28, Anion Gap 8, Blood Urea Nitrogen 9, Creatinine 0.5L, Estimat Glomerular Filtration Rate > 60, Glucose Level 168H, Calcium Level 8.6 Height (Feet): 5 Height (Inches): 5.00 Weight (Pounds): 119 General Appearance: WD/WN EENT: PERRL/EOMI Neck: normal alignment Cardiovascular: normal rate Respiratory/Chest: lungs clear Abdomen: non tender Pelvis: normal external exam Extremities: normal range of motion Edema: trace edema 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
--- NOTE | 2019-04-06 19:17 | Infectious Diseases Prog Note ---
Assessment/Plan Assessment/Plan ASSESSMENT AND PLAN: 1. sepsis, leukocytosis, pna vs atx vs malignancy, ? uti, + ua, vre colonization - vancomycin, cefepime and flagyl - cleared from ID standpoint for feeding - tube - leukocytosis improved, blood cultures negative, urine cultures negative - monitor labs and chest x-ray - d/w Dr. Gifford from primary team 2. The patient has anemia. 3. Failure to thrive. 4. The patient needs feeding tube. 5. The patient has diabetes mellitus. 6. Brain tumor. 7. COPD. 8. BPH. 9. Hypertension. 10. Metastatic lung cancer. 11. Continue treatment per primary consultants including diabetes and hypertension treatment. 12. Social history is negative. 13. Family history is noncontributory. 14. MAR was noted. 15. Case was discussed with Dr. Gifford. 16. Case was discussed with RN. 17. Skin care protocol. 18. Orders were noted and entered. Subjective Constitutional: Reports: other - alert, nad; Denies: fever, fatigue HEENT: Denies: congestion Respiratory: Denies: shortness of breath Cardiovascular: Denies: chest pain Gastrointestinal/Abdominal: Denies: nausea, vomiting, diarrhea Genitourinary: Denies: dysuria Neurologic: Denies: headache Psychiatric: Denies: depression Skin: Denies: rash Hematologic: Denies: bleeding Musculoskeletal: Denies: pain Allergies: Coded Allergies: PENICILLINS (Verified Allergy, Unknown, 03/21/19) Objective Vital Signs Last 24 Hour Vital Signs Date Time Temp Pulse Resp B/P (MAP) Pulse Ox O2 Delivery O2 Flow Rate FiO2 04/06/19 16:00 99 04/06/19 16:00 97.8 110 20 146/96 (113) 100 04/06/19 12:00 113 04/06/19 12:00 97.8 98 20 131/96 (108) 96 04/06/19 11:20 101 18 94 Room Air 04/06/19 11:14 94 99 Room Air 04/06/19 09:00 Room Air 04/06/19 08:00 91 04/06/19 08:00 96.8 97 20 131/77 (95) 97 04/06/19 04:00 98.2 88 18 148/69 (95) 97 04/06/19 04:00 108 04/06/19 00:00 95 04/06/19 00:00 97.7 101 20 129/88 (102) 94 04/05/19 21:00 Room Air 04/05/19 20:00 108 04/05/19 20:00 97.6 110 20 121/82 (95) 96 Height (Feet): 5 Height (Inches): 5.00 Weight (Pounds): 119 General Appearance: no acute distress HEENT: normocephalic, atraumatic, anicteric, mucous membranes moist Respiratory/Chest: crackles/rales, rhonchi - bilaterally Cardiovascular: normal rate, regular rhythm, no gallop/murmur, no JVD Abdomen: normal bowel sounds, soft, non tender, no organomegaly, non distended Genitourinary: other - no simpson Extremities: no cyanosis Skin: no rash, no ulcers Neurologic/Psychiatric: alert, responsive Lymphatic: no neck adenopathy Musculoskeletal: no effusion Objective Chest x-ray - 04/04/19 - Procedure: XRAY Chest 1v Indication: Abnormal chest sounds Technique: One view of the chest Comparison: 04/03/2019 Findings: Again demonstrated is near complete opacification of the right hemithorax, presumably due to large pleural effusion and parenchymal atelectasis. There is minimal residual aerated lung, amount of which is unchanged. Left lung and pleural space remain clear. The aorta is tortuous. The heart size is impossible to assess Impression: Unchanged near-complete opacification of the right hemithorax, over one day Microbiology Date/Time Source Procedure Growth Status 04/03/19 13:23 Blood Blood Culture - Preliminary NO GROWTH AFTER 48 HOURS Resulted 04/03/19 13:00 Nasal Nares MRSA Culture - Final NO METHICILLIN RESISTANT STAPH AUREUS... Complete 04/03/19 13:31 Urine,Clean Catch Urine Culture - Final NO GROWTH AFTER 48 HOURS Complete 04/03/19 13:00 Rectum VRE Culture - Final Enterococcus Faecalis - Vre Enterococcus Faecium - Vre Complete 04/03/19 13:00 Rectum - Final NO CARBAPENEM-RESISTANT ENTEROBACTERI... Complete Laboratory Tests Test 04/06/19 05:24 White Blood Count 15.5 K/UL (4.8-10.8) H Red Blood Count 3.34 M/UL (4.70-6.10) L Hemoglobin 8.9 G/DL (14.2-18.0) L Hematocrit 29.1 % (42.0-52.0) L Mean Corpuscular Volume 87 FL (80-99) Mean Corpuscular Hemoglobin 26.7 PG (27.0-31.0) L Mean Corpuscular Hemoglobin Concent 30.7 G/DL (32.0-36.0) L Red Cell Distribution Width 18.5 % (11.6-14.8) H Platelet Count 491 K/UL (150-450) H Mean Platelet Volume 4.9 FL (6.5-10.1) L Neutrophils (%) (Auto) % (45.0-75.0) Lymphocytes (%) (Auto) % (20.0-45.0) Monocytes (%) (Auto) % (1.0-10.0) Eosinophils (%) (Auto) % (0.0-3.0) Basophils (%) (Auto) % (0.0-2.0) Differential Total Cells Counted 100 Neutrophils % (Manual) 93 % (45-75) H Lymphocytes % (Manual) 5 % (20-45) L Monocytes % (Manual) 2 % (1-10) Eosinophils % (Manual) 0 % (0-3) Basophils % (Manual) 0 % (0-2) Band Neutrophils 0 % (0-8) Platelet Estimate Adequate Platelet Morphology Normal Hypochromasia 2+ Anisocytosis 2+ Sodium Level 142 MMOL/L (136-145) Potassium Level 3.1 MMOL/L (3.5-5.1) L Chloride Level 106 MMOL/L (98-107) Carbon Dioxide Level 28 MMOL/L (21-32) Anion Gap 8 mmol/L (5-15) Blood Urea Nitrogen 9 mg/dL (7-18) Creatinine 0.5 MG/DL (0.55-1.30) L Estimat Glomerular Filtration Rate > 60 mL/min (>60) Glucose Level 168 MG/DL (74-106) H Calcium Level 8.6 MG/DL (8.5-10.1) Current Medications Medications (Trade) Dose Ordered Sig/Stephani Route PRN Reason Start Time Stop Time Status Last Admin Dose Admin Acetaminophen (Tylenol) 650 mg Q4H PRN ORAL Mild Pain (Pain Scale 1-3) 04/03/19 14:00 05/03/19 13:59 04/04/19 20:17 Albuterol/ Ipratropium (Albuterol/ Ipratropium) 3 ml Q8H PRN HHN Shortness of Breath 04/03/19 14:00 04/08/19 13:59 04/06/19 11:13 Cefepime HCl 2 gm/ Dextrose 55 ml @ 110 mls/hr Q12HR@0200,1400 IV 04/05/19 02:00 04/12/19 01:59 04/06/19 14:41 Dextrose (Dextrose 50%) 25 ml Q30M PRN IV Hypoglycemia 04/03/19 14:00 05/03/19 13:59 Dextrose (Dextrose 50%) 50 ml Q30M PRN IV Hypoglycemia 04/03/19 14:00 05/03/19 13:59 Dextrose/ Electrolytes 1,000 ml @ 50 mls/hr Q20H IV 04/05/19 17:30 05/03/19 17:29 04/06/19 12:39 Docusate Sodium (Colace) 100 mg EVERY 12 HOURS ORAL 04/03/19 21:00 05/03/19 20:59 04/06/19 10:13 Famotidine (Pepcid I.v.) 20 mg Q12HR IVP 04/03/19 21:00 05/03/19 20:59 04/06/19 10:12 Heparin Sodium (Porcine) (Heparin 5000 units/ml) 5,000 units EVERY 12 HOURS SUBQ 04/03/19 21:00 05/03/19 20:59 04/06/19 10:13 Metronidazole 100 ml @ 100 mls/hr Q8HR IVPB 04/04/19 06:00 04/11/19 05:59 04/06/19 13:42 Morphine Sulfate (Morphine Sulfate) 1 mg Q8H PRN IVP PAIN 4-10 04/03/19 15:00 04/10/19 14:59 Temazepam (Restoril) 15 mg HSPRN PRN ORAL Insomnia 04/03/19 21:00 04/10/19 20:59 Vancomycin HCl (Vanco rx to dose) 1 ea DAILY PRN MISC Per rx protocol 04/03/19 23:30 05/03/19 23:29 Vancomycin HCl/ Dextrose 275 ml @ 183.333 mls/hr Q12H IVPB 04/05/19 02:30 04/10/19 02:29 04/06/19 15:35 Juan Candelaria MD Apr 06, 2019 19:17
[2019-04-06 20:00] VITALS: BP 133/83
--- NOTE | 2019-04-06 20:11 | NUR ---
NURSE NOTES: RECEIVED PATIENT RESTING IN BED, BILATERAL WRIST RESTRAINTS ON. PATIENT TURNED AND REPOSITIONED. WHILE GIVING NURSING CARE NOTED PATIENT COMBATIVE AND TRYING TO GET OUT OF BED. TRIED TO RE-ORIENT PATIENT TO ENVIRONMENT WITHOUT SUCCESS. PATIENT REMAINS CONFUSED. WILL CONTINUE WITH PLAN OF CARE.
--- NOTE | 2019-04-06 20:16 | NUR ---
HAND-OFF: Report given to Giovanna MARTIN. pt in stable condition will be NPO after midnight endorsed to RN.
[2019-04-07] VITALS: BP 132/88
[2019-04-07] MEDS: Cefepime HCl 2 GM in D5W 55 ML IV SCH (01:32)
[2019-04-07] MEDS: Vancomycin 1.25gm Premix IVPB SCH (02:07)
[2019-04-07 04:00] VITALS: BP 155/100
--- NOTE | 2019-04-07 05:46 | NUR ---
NURSE NOTES: AROUND 430 PRIMARY RN AND GRINDER SET UP OPERATOR UNIVERSAL WERE PROVIDING AM CARE TO PATIENT. PATIENT WAS CLEANED, LINEN WAS CHANGED. OBSERVED PATIENT BEING CONFUSED AND AGITATED. PATIENT WAS REPOSITIONED. RN WAS ABOUT TO LEAVE ROOM, NOTED PATIENT HAD RESPIRATORY ARREST AND TERRY ON A MONITOR. PATIENT IS DNR, POLST VERIFIED. RT WAS CALLED AND NON REBREATHER MASK WAS APPLIED. UNABLE TO OBTAINED BLOOD PRESSURE, PULSE. PATIENT WENT TO CARDIAC ARREST. VOLUNTEER SERVICES SPECIALIST Fouzia MAURO NOTIFIED AND PRONOUNCED PATIENT AT 457. CALLED DR[address] HODGES. DR. ROYAL RUIZ COVERING FOR PRIMARY MD AND MADE DR RUIZ AWARE. MD WILL NOTIFY FAMILY.
--- NOTE | 2019-04-07 05:52 | NUR ---
PRONOUNCEMENT: No Code. Called to pronounce patient. Absence of spontaneous respirations, no cardiac or breath sounds on auscultation. Pupils fixed and dilated. No carotid pulse or chest movement. Patient at [address] DR Henriquez notified PER Giovanna MARTIN. Addendum: 04/07/19 at 0611 by Hugo Horner RN Dr. Wilkins notified per Giovanna MARTIN. Family notified as well.
--- NOTE | 2019-04-07 06:51 | NUR ---
NURSE NOTES: AROUND 555 CALLED TO FOLLOW UP WITH FAMILY, DAUGHTER ROVERTO. SHE WAS NOTIFIED AND WILL COME TO THE HOSPITAL
--- NOTE | 2019-04-07 07:06 | NUR ---
HAND-OFF: Report given to Fouzia FITZPATRICK RN. AWAITING FOR PATIENT'S FAMILY
--- NOTE | 2019-04-07 07:47 | NUR ---
NURSE NOTES: pt. earlier in the day. Waiting for family to arrive to collect pertinent information. Pt has been cleaned up no dentures no hearing aids no glasses. stock speculator and IV have been DC.
[2019-04-07] MEDS: Docusate 100mg cap ORAL SCH (09:00)
[2019-04-07] MEDS: Heparin 5000 units/ml inj SUBQ SCH (09:00)
--- NOTE | 2019-04-07 09:27 | GI Progress Note ---
Assessment/Plan Problems: (1) Encounter for PEG (percutaneous endoscopic gastrostomy) ICD Codes: Z43.1 - Encounter for attention to gastrostomy SNOMED: 032117943, 982955236 (2) Failure to thrive in adult ICD Codes: R62.7 - Adult failure to thrive SNOMED: 558189722 (3) Sepsis ICD Codes: A41.9 - Sepsis, unspecified organism SNOMED: 73421571 Assessment/Plan pt , see pronouncement. Subjective Subjective Limited Objective Last 24 Hour Vital Signs Date Time Temp Pulse Resp B/P (MAP) Pulse Ox O2 Delivery O2 Flow Rate FiO2 04/07/19 04:00 106 04/07/19 04:00 98.0 104 20 155/100 (118) 96 04/07/19 00:00 100 04/07/19 00:00 98.1 105 20 132/88 (103) 96 04/06/19 21:00 Room Air 04/06/19 20:00 98.9 113 20 133/83 (100) 95 04/06/19 20:00 103 04/06/19 16:00 99 04/06/19 16:00 97.8 110 20 146/96 (113) 100 04/06/19 12:00 113 04/06/19 12:00 97.8 98 20 131/96 (108) 96 04/06/19 11:20 101 18 94 Room Air 04/06/19 11:14 94 99 Room Air Intake and Output 04/06/19 04/07/19 19:00 07:00 Intake Total 75 ml 588.333 ml Balance 75 ml 588.333 ml Intake Oral 75 ml IV Total 588.333 ml # Voids 3 3 # Bowel Movements 1 Height (Feet): 5 Height (Inches): 5.00 Weight (Pounds): 140 Luis Angel Jiang NP Apr 07, 2019 09:27
[2019-04-07] MEDS: D5 1/2NS w/KCl 20mEq 1,000 ML IV SCH (09:30)
--- NOTE | 2019-04-07 10:05 | NUR ---
pt. family visited pt. and left. Family does not know which mortuary they will use but will call us back when they have made a decision. Advised family members pt will be taken [place] to the [facility] [place] the [place] being, until pt is picked up by the mortuary. Pt is clean, IV, cardiac cath lab manager are off. Body has ID tag on R big toe , as well as on the outside of bag. Pt did not have any belongings. pt ready to be transported do the [facility] [place].
--- NOTE | 2019-04-07 11:26 | NUR ---
NURSE NOTES: pt transported to the [facility] [place].
--- NOTE | 2019-04-07 13:25 | Discharge Summary ---
Discharge Summary Hospital Course Date of Admission Apr 03, 2019 at 13:20 Date of Discharge Apr 07, 2019 at 11:00 Admitting Diagnosis failure to thrive ROXANN Alanis is a 68 year old male who was admitted on Apr 03, 2019 at 13: 20 for Failure To Thrive Hospital Course 68 y/o male with dementia who is re admitted to the hospital for failure to thrive and need of PEG which family requested. - SNF resident was continue Vancomycin and Cefepime and Flagyl per ID recs. His blood cultures, urine culture were negative and his WBC decreased from 20 thousand range to 13 thousand. Even thou it was not less than 10 thousand, ID senior treasury consultant felt it was chronic WBC elevation due to underlying malignancy and approval to perform PEG was obtained. Family was updated 04/06 and PEG was planned for 04/07. In the early mornigng of 04/07 he was noted to be apneic and oxygen support was provided. DNR DNI order in place due to metastatic lung cancer was protected and the patient went into cardiac arrest and was pronounced by RN I updated the daughter DPOA today and explained events. Questions were answered and she is satisfied with the care provided while mourning the of her father. Discharge Discharge Disposition Patient was discharged to patient Ana Maria Gifford MD Apr 07, 2019 13:25
== END 2019-04-07 11:00 | disposition expired | DRG 871 ==
LOC: EDBD 12:43 → EMR 13:15 → 2E 13:20 → EDBEDREQ 14:37
PROC: 30233N1 Transfusion of Nonautologous Red Blood Cells into Peripheral Vein, Percutaneous Approach (ICD-10-PCS; principal; 2019-04-05)
DX: A41.9 Sepsis, unspecified organism (principal); J18.9 Pneumonia, unspecified organism; C34.90 Malignant neoplasm of unspecified part of unspecified bronchus or lung; C79.9 Secondary malignant neoplasm of unspecified site; N39.0 Urinary tract infection, site not specified; Z51.5 Encounter for palliative care; Z66 Do not resuscitate; D49.6 Neoplasm of unspecified behavior of brain; F03.90 Unspecified dementia, unspecified severity, without behavioral disturbance, psychotic disturbance, mood disturbance, and anxiety; J44.9 Chronic obstructive pulmonary disease, unspecified; Z88.0 Allergy status to penicillin; E11.9 Type 2 diabetes mellitus without complications; E87.6 Hypokalemia; N40.0 Benign prostatic hyperplasia without lower urinary tract symptoms; R45.1 Restlessness and agitation
CPT/HCPCS: 36415; 71045; 80048; 80053; 80202; 81003; 82550; 82962; 83605; 83690; 83735; 84100; 85007; 85025; 85610; 85730; 86850; 86900; 86901; 86920; 87040; 87081; 87086; 93005; 94640; 96361; 96365; 96367; 99291; J7620; J8499